=== PATIENT | female | born 1975 | race Two or more races ===

== ENCOUNTER → 2020-09-07 15:43 | Outpatient (BNVA) | payer OTHER, MEDICAID, SELFPAY | PROVIDERS: PCP Internal Medicine; Visit Provider Hospitalist | DX: Z76.89 Persons encountering health services in other specified circumstances (principal) ==

== ENCOUNTER 2021-04-21 10:25 | Outpatient (REF) | payer BC, MEDICAID, SELFPAY ==
[2021-04-21 12:16] LABS: D Dimer 310 NG/ML
[2021-04-21 12:24] LABS: Anion Gap 12 (12-20); Blood Urea Nitrogen 11 mg/dL (9-16); Carbon Dioxide 23 mmol/L (22-29); Chloride 106 mmol/L (96-108); Estimated Glomerular Filt Rate > 60; Glucose Random 88 mg/dL (60-115); Potassium 4.2 mmol/L (3.3-5.1); Sodium 137 mmol/L (135-145)
[2021-04-21 12:47] LABS: Vitamin D 25-OH Total 25.6 ng/mL (>30)
[2021-04-21 12:55] LABS: Erythrocyte Sedimentation Rate 11 MM/HR (0-20)
== END 2021-04-21 10:26 | disposition home or self-care (01) ==
LOC: HO.LAB 10:25
PROVIDERS: PCP Internal Medicine; Visit Provider Hospitalist
DX: I26.99 Other pulmonary embolism without acute cor pulmonale (principal); J45.909 Unspecified asthma, uncomplicated
CPT/HCPCS: 36415; 80048; 82306; 82785; 85379; 85652; 86003

== ENCOUNTER → 2021-06-10 15:04 | Outpatient (BNVA) | payer BC, MEDICAID, SELFPAY | PROVIDERS: PCP Internal Medicine; Visit Provider Hospitalist | DX: J44.9 Chronic obstructive pulmonary disease, unspecified (principal); J45.909 Unspecified asthma, uncomplicated; I26.99 Other pulmonary embolism without acute cor pulmonale ==

== ENCOUNTER → 2021-08-01 14:59 | Outpatient (BNVA) | payer BC, MEDICAID, SELFPAY | PROVIDERS: PCP Internal Medicine; Visit Provider Hospitalist | DX: J44.9 Chronic obstructive pulmonary disease, unspecified (principal); J45.909 Unspecified asthma, uncomplicated; I26.99 Other pulmonary embolism without acute cor pulmonale ==

== ENCOUNTER → 2021-08-30 15:04 | Outpatient (BNVA) | payer BC, MEDICAID, SELFPAY | PROVIDERS: PCP Internal Medicine; Visit Provider Nurse Practitioner Family ==

== ENCOUNTER 2021-10-04 05:44 | Outpatient (REF) | payer BC, MEDICAID, SELFPAY ==
--- NOTE | ~2021-10-04 | FL_ITS ---
EXAMINATION: XR FLUOROSCOPY WITH IMAGES CLINICAL INFORMATION: Pain right knee. COMPARISON: None. TECHNIQUE: Fluoroscopy performed by Cheryl WOODY. Fluoroscopy time: 0.4 minutes DAP: 3.14 Gycm2 Images: 3 FINDINGS: There are needles positioned medial and lateral cortex distal femur and medial proximal tibial cortex for pain management. There is mild reduction in the lateral compartment joint space. The medial compartment joint space is normal. The soft tissues are normal. FL/FL guidance in treatment room IMPRESSION: Mild degenerative changes lateral compartment. Fluoroscopy was provided for pain management to the referring physician.
== END 2021-10-04 05:45 | disposition home or self-care (01) ==
LOC: HO.RADIR 05:44
PROVIDERS: Visit Provider Anesthesiology
DX: M17.11 Unilateral primary osteoarthritis, right knee (principal)

== ENCOUNTER → 2021-10-11 09:37 | Outpatient (BNVA) | payer BC, MEDICAID, SELFPAY | PROVIDERS: PCP Internal Medicine; Visit Provider Nurse Practitioner Family ==

== ENCOUNTER 2022-03-06 10:30 | Outpatient (REF) | payer BC, MEDICAID, SELFPAY ==
[2022-03-06 10:45] LABS: MANUAL DIFF FLAG NO
[2022-03-06 11:23] LABS: Basophils Percent Auto 0.2 % (0-2); Eosinophils Absolute Auto 0.1 X10*3/uL (0.0-0.4); Eosinophils Percent Auto 0.8 % (0-4); Hematocrit 43.8 % (37.0-47.0); Hemoglobin 14.3 g/dl (12.0-16.0); Imm Gran Abs Auto 0.04 X10*3/uL (0.00-0.03); Imm Gran Pct Auto 0.5 % (0.0-0.4); Lymphocytes Absolute Auto 1.4 X10*3/uL (1.2-4.9); Lymphocytes Percent Auto 15.8 % (20-40); Mean Corpuscular HGB Conc 32.6 g/dl (31.0-35.0); Mean Corpuscular Hemoglobin 29.9 pg (27.0-33.0); Mean Corpuscular Volume 91.4 fL (80.0-98.0); Mean Platelet Volume 10.3 fL (9.4-12.3); Monocytes Absolute Auto 0.6 X10*3/uL (0.1-1.2); Monocytes Percent Auto 6.7 % (2-11); Neutrophils Absolute Auto 6.6 x10*3/uL (2.0-8.3); Platelet Count 271 X10*3/uL (160-400); Red Blood Count 4.79 X10*6/uL (4.20-5.50); Red Cell Distribution Width 13.8 % (11.0-16.0); White Blood Count 8.7 X10*3/uL (4.8-10.8)
[2022-03-06 11:51] LABS: Alanine Aminotransferase 12 U/L (0-31); Albumin Level 4.2 g/dL (3.5-5.0); Alkaline Phosphatase 67 U/L (39-117); Anion Gap 14 (12-20); Aspartate Amino Transferase 13 U/L (5-31); Bilirubin Direct 0.4 mg/dL (0.0-0.5); Bilirubin Total 1.4 mg/dL (0.0-1.0); Blood Urea Nitrogen 13 mg/dL (9-16); Calcium 9.3 mg/dL (8.4-10.2); Carbon Dioxide 23 mmol/L (22-29); Chloride 105 mmol/L (96-108); Estimated Glomerular Filt Rate > 60; Glucose Random 95 mg/dL (60-115); Potassium 4.2 mmol/L (3.3-5.1); Sodium 138 mmol/L (135-145); Total Protein 7.3 g/dL (6.5-8.0)
[2022-03-06 12:43] LABS: Erythrocyte Sedimentation Rate 12 MM/HR (0-20)
[2022-03-07 22:12] LABS: Immunoglobulin E 16 kU/L (<OR=114)
[2022-03-12 13:27] LABS: Vitamin D 25-OH, D2 <4 ng/mL; Vitamin D 25-OH, D3 23 ng/mL; Vitamin D 25-OH, Total 23 ng/mL (30-100)
== END 2022-03-06 10:31 | disposition home or self-care (01) ==
LOC: HO.LAB 10:30
PROVIDERS: Visit Provider Hospitalist
DX: I27.82 Chronic pulmonary embolism (principal); J45.40 Moderate persistent asthma, uncomplicated; R60.0 Localized edema
CPT/HCPCS: 36415; 80048; 80076; 82306; 82785; 85025; 85652

== ENCOUNTER 2022-04-26 07:08 | Emergency (ER) | payer BC, MEDICAID, SELFPAY ==
--- NOTE | ~2022-04-26 | XR_ITS ---
EXAMINATION: XR CHEST CLINICAL INFORMATION: Chest tightness COMPARISON: None TECHNIQUE: 2 views of the chest were obtained. FINDINGS: Lungs clear. No pleural effusions. Heart and pulmonary vessels normal. There is dystrophic calcification overlying the superior lateral right humeral head. XR/XR chest 2V IMPRESSION: No active disease.
--- NOTE | 2022-04-26 07:26 | ECG_ITS ---
Test Reason : chest tightness Blood Pressure : / mmHG Vent. Rate : 088 BPM Atrial Rate : 088 BPM P-R Int : 132 ms QRS Dur : 078 ms QT Int : 384 ms P-R-T Axes : 048 -02 011 degrees QTc Int : 464 ms Normal sinus rhythm Minimal voltage criteria for LVH, may be normal variant ( R in aVL ) Borderline ECG No previous ECGs available Referred By: Generic ED Physician Electronically Signed By:GENARO MURRELL MD
[2022-04-26 07:36] VITALS: BP 158/94; PULSE 94; RESP 18; TEMP 37; O2SAT 96; BMI 47.6
[2022-04-26] MEDS: Albuterol/Iprat 2.5/0.5MG 3 ML AMPUL.NEB INHALE (09:46)
[2022-04-26 09:47] VITALS: RESP 18; O2SAT 96
[2022-04-26] MEDS: predniSONE 20 MG TABLET 40 MG PO (10:09)
--- NOTE | 2022-04-26 10:12 | ED_ITS ---
HPI - URI/Sore Throat General Chief Complaint: Upper Respiratory Symptoms Stated Complaint: covid+, tight chest Time Seen by Provider: 04/26/22 09:19 Source: patient Mode of arrival: ambulatory History of Present Illness HPI Narrative: 46-year-old female with a medical history of asthma, osteoarthritis, PE on Eliquis, COVID-19 positive yesterday, presenting to the ED complaining of nonproductive cough, wheezing, and chest tightness since Sunday. Reports symptoms feel like her asthma. Reports low-grade fever, myalgias, chills which have been improving. Has been using neb machine with some relief. Denies fever, SOB, pedal edema, calf pain. Denies missing any doses of her Simran MD elicited complaint: cough and nasal congestion Onset (ago): day(s) Related Data Home Medications Medication Instructions Recorded Confirmed acetaminophen 650 mg 650 mg PO Q12H 08/01/21 10/11/21 tablet,extended release (Tylenol Arthritis Pain) Previous Rx's Medication Instructions Recorded budesonide-formoterol HFA 160 2 inh inhalation BID 30 days #10.2 06/10/21 mcg-4.5 mcg/actuation aerosol grams inhaler cetirizine 10 mg tablet (Zyrtec) 10 mg PO DAILY 30 days #30 tabs 06/10/21 thom.stocking,knee,reg,smal #2 ea 08/01/21 albuterol sulfate 90 mcg/actuation 2 inh inhalation Q6H PRN shortness 03/06/22 aerosol inhaler of breath or wheezing 30 days #18 grams apixaban 5 mg tablet (Eliquis) 5 mg PO BID #120 tabs 04/12/22 albuterol sulfate 2.5 mg/0.5 mL 5 mg inhalation Q4H PRN shortness 04/26/22 solution for nebulization of breath or wheezing #30 ea benzonatate 100 mg capsule 100 mg PO TID PRN cough #14 caps 04/26/22 fluticasone propionate 50 2 spray intranasal DAILY #16 grams 04/26/22 mcg/actuation nasal spray,suspension (Flonase Allergy Relief) prednisone 20 mg tablet 40 mg PO DAILY 5 days #10 tabs 04/26/22 Allergies Allergy/AdvReac Type Severity Reaction Status Date / Time No Known Allergies Allergy Verified 03/06/22 10:09 Review of Systems Review of Systems: Constitutional: No Weight loss, No Fever(resolved), No Chills(resolved) ENT/Mouth: No Ear Pain, No Nasal Congestion, No Sinus Pain, No Hoarseness, No s ore throat, No Rhinorrhea, No Swallowing Difficulty Cardiovascular: + Chest tightness, No SOB Respiratory: + Cough, No Sputum, No Wheezing Gastrointestinal: No Nausea, No Vomiting, No Diarrhea, No Constipation, No Abdominal pain Genitourinary: No Dysuria, No Urinary Frequency, No Hematuria, No Flank Pain Musculoskeletal: No joint pain, No Myalgias(resolved), No Joint Swelling Skin: No Skin Lesions, No rash Neuro: No Weakness Yes all other systems are reviewed and are negative Constitutional: Constitutional: Reports as per [facility] Past Medical History Attestation statement: The following information was validated with the patient. Medical History (Updated 04/26/22 @ 10:13 by ANNALISE Packer) Asthma Knee pain, right Lower extremity edema Osteoarthritis of right knee Pulmonary emboli Social History Social History (Updated 04/21/21 @ 10:35 by SHABBIR Kamara) Patient Tobacco Use Status: Never used Tobacco Advance Directives: No Advance Directives Information Provided: No Physical Exam Vital Signs: Vital Signs: Last Vital Signs Temp 98.6 F 04/26/22 07:36 Pulse 94 04/26/22 07:36 Resp 18 04/26/22 09:47 BP 158/94 H 04/26/22 07:36 Pulse Ox 96 04/26/22 07:36 O2 Del Method 04/26/22 07:36 BMI result Body Mass Index 47.6 Const: General: cooperative, healthy appearing and no acute distress Orientation/consciousness: patient oriented x3 Limitations: no limitations HEENT: Head: Yes normal to inspection and Yes atraumatic Ears: hearing grossly normal bilaterally and external ears normal General nose exam: Normal external nose present Face and sinus: Yes normal facial exam Throat: Yes posterior oropharynx normal, Yes tonsils normal, Yes uvula midline and No pe ritonsillar mass Eyes: General: appearance normal, both eyes and all related structures EOM: EOMs intact bilaterally Neck: Neck: Yes normal visual inspection and Yes no meningeal signs Resp: Effort & Inspection: normal respiratory effort and no respiratory distress Auscultation: no crackles, no rhonchi, no wheezes and diminished lung sounds bilateral (slight) in the lower lung marks Cardio: Rate: regular rate Heart sounds: S1 normal heart sound present and S2 normal heart sound present GI: Inspection: Yes normal to inspection Palpation (GI): Soft to palpation, nontender, no guarding and not rigid Skin: Rashes: no rashes Wounds: no wounds Neuro: General: patient oriented x3, tone normal and no meningeal signs Gait exam (Neuro): Normal gait present Extrem: General: Yes normal to inspection, Yes no pedal edema and Yes no calf tenderness Course Course Course Narrative: XR chest 2V IMPRESSION: No active disease. > patient given DuoNeb and p.o. prednisone in the ED. Reports symptomatic improvement. Results discussed with patient including worrisome signs and symptoms and strict return precautions, and when to return to the emergency department. They verbalized understanding and feel safe for discharge at this time. MDM - URI/Sore Throat MDM Narrative Medical decision making narrative: 46-year-old female with a medical history of asthma, osteoarthritis, PE on Eliquis, COVID-19 positive yesterday, presenting to the ED complaining of nonproductive cough, wheezing, and chest tightness since Sunday. On exam vital signs stable, NAD/nontoxic-appearing, satting 96% on RA, slight decreased breath sounds bibasilarly, no appreciable wheezing. No pedal edema/calf tenderness. Concern for continued COVID-19 symptoms vs superimposed asthma exacerbation. Rule out pneumonia. Lower suspicion for PE as patient is anticoagulated. Unlikely ACS Plan: EKG, CXR, DuoNeb, p.o. prednisone Differential Diagnosis Differential diagnosis: Likely upper respiratory infection, viral infection, bronchitis and influenza Medical Records Attestation: I reviewed the patient's medical records. Lab Data Attestation: I reviewed the patient's lab results. ECG Data Attestation: I personally reviewed and interpreted this ECG as follows: ECG interpretation date: 04/26/22 ECG interpretation time: 07:44 Interpretation: EKG normal sinus rhythm at a rate of 88. QTC 464. No STEMI. Discharge Plan Discharge Clinical Impression: Asthma exacerbation, COVID-19 Patient Disposition: Home, Self-Care Instructions: Asthma (ED) Additional Instructions: Your x-ray does not show any pneumonia. Continue using her nebulizer machine, inhalers, and start taking prednisone as prescribed. Continue to self isolate. Take Tylenol as needed. If symptoms persist or worsen, if constant worsening chest pain or shortness of breath, or fever unresolved with medications return to the emergency department Prescriptions: New benzonatate 100 mg capsule 100 mg PO TID PRN (Reason: cough) Qty: 14 0RF fluticasone propionate [Flonase Allergy Relief] 50 mcg/actuation spray,suspension 2 spray intranasal DAILY Qty: 16 0RF Rx Instructions: administer into each nostril prednisone 20 mg tablet 40 mg PO DAILY 5 Days Qty: 10 0RF albuterol sulfate 2.5 mg/0.5 mL solution for nebulization 5 mg inhalation Q4H PRN (Reason: shortness of breath or wheezing) Qty: 30 0RF No Action albuterol sulfate 90 mcg/actuation HFA aerosol inhaler 2 inh inhalation Q6H PRN (Reason: shortness of breath or wheezing) 30 Days Qty: 18 12RF Eliquis 5 mg tablet 5 mg PO BID Qty: 120 5RF budesonide-formoterol 160-4.5 mcg/actuation HFA aerosol inhaler 2 inh inhalation BID 30 Days Qty: 10.2 11RF cetirizine [Zyrtec] 10 mg tablet 10 mg PO DAILY 30 Days Qty: 30 3RF acetaminophen [Tylenol Arthritis Pain] 650 mg tablet extended release 650 mg PO Q12H (DME) thom.stocking,knee,reg,smal Misc See Rx Instructions .Route Qty: 2 0RF Rx Instructions: 15-20 cm Referrals: Graham Pro MD [Primary Care Provider] - 1 week Interventions: ED Discharge Assessment Last Done: 04/26/22 10:21 Discharge Date/Time: 04/26/22 10:26
== END 2022-04-26 10:26 | disposition home or self-care (01) ==
PROVIDERS: Emergency Provider Emergency Medicine Emergency Medical Services; PCP Internal Medicine
DX: U07.1 COVID-19 (principal); J45.901 Unspecified asthma with (acute) exacerbation; R07.89 Other chest pain; Z79.899 Other long term (current) drug therapy
CPT/HCPCS: 71046; 93005; 94640; 99284

== ENCOUNTER → 2022-05-04 13:55 | Outpatient (BNVA) | payer BC, MEDICAID, SELFPAY | PROVIDERS: PCP Internal Medicine; Visit Provider Dietitian, Registered | DX: E66.9 Obesity, unspecified (principal) | CPT/HCPCS: 97802 ==

== ENCOUNTER → 2022-06-16 09:39 | Outpatient (BNVA) | payer BC, MEDICAID, SELFPAY | PROVIDERS: PCP Internal Medicine; Visit Provider Dietitian, Registered | DX: E66.9 Obesity, unspecified (principal); Z68.42 Body mass index [BMI] 45.0-49.9, adult; Z71.3 Dietary counseling and surveillance | CPT/HCPCS: 97803 ==

== ENCOUNTER → 2022-09-29 13:58 | Outpatient (BNVA) | payer BC, MEDICAID, SELFPAY | PROVIDERS: PCP Internal Medicine; Visit Provider Hospitalist | DX: Z13.89 Encounter for screening for other disorder (principal) ==

== ENCOUNTER 2023-09-28 09:56 | Outpatient (AMB) | payer OTHER, SELFPAY ==
[2023-09-28 10:00] VITALS: PULSE 75; O2SAT 97; BMI 46.5
--- NOTE | 2023-09-28 10:00 | MHC.OFFVIS ---
Intake Vital Signs 09/28/23 10:00 Height 5 ft Weight 238 lb BMI 46.5 Pulse 75 Pulse Source Pulse Oximeter Pulse Oximetry (%) 97 Oxygen Delivery Method Room Air Intake Visit Reasons: asthma Website Developer Required: No Allergies No Known Allergies Allergy (Verified 09/28/23 10:01) HPI HPI Comments History of Present Illness Details The patient is a 48-year-old woman with a known history of moderate persistent asthma, history recurring pulmonary emboli currently on lifelong anticoagulation and also morbid obesity. Her respiratory status has been stable. 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 But, for now she has been doing well from the asthma standpoint. In regards of the history of pulmonary emboli she continues on the Eliquis 5 mg twice a day. She is wondering about 1 is safe to decrease the dose. I do feel she should be at least on a year's worth therapeutic Eliquis prior to deciding to cut down to half dose. She is currently dealing with an issue with her right knee. She has a torn ACL and is awaiting getting a brace for this injury. She continues to try to exercise and she lost approximately around 40 lb as she has continued to exercise and maintain a lifestyle change. In the meantime the patient does have a torn ACL. Because of her history of blood clots the patient cannot have surgery done locally. Once this duration improves with the she should go to [place] to have an evaluation. In the meantime for her anxiety that is ultimately affecting her ability to function and also at worsening respiratory symptoms the patient is requesting to talk to a mental health counselor. I will help her make arrangements for in order for her to do that. 04/21/2021 the patient is here for pulmonary follow-up visit. Overall she still complains of significant right knee discomfort. She does have a brace on. She did have a 2nd opinion in [place] for her right knee arthritis and also her torn ACL. Currently she is on Eliquis for her history of recurrent blood clots. The patient needs to stay on lifelong anticoagulation as she is high risk for further recurrent clots. [place] recommended a IVC filter for the perioperative period. I did explain to her that these IVC filters are removal and she can have 1 done as a prophylactic measure based on her high risk of clotting and the fact that she may need to be off anticoagulation. she will follow-up with the ACL all specialists to see about having surgery for that 1st and then considering having further interventions for her significant arthritis. Her asthma has been more active in the last couple days. She has been using her rescue inhaler or nebulizer. She has also been using the Symbicort twice a day. Will try to optimize her therapy by switching her over to Breztri, in addition to that we had checked her allergies in the past and she did have significant allergies noted. Will recheck her allergy levels at this time. Patient could consider biologic therapy if she has significant symptoms and if she does not respond to the optimize respiratory therapy. based on his significant comorbidities which should avoid systemic steroids at this time. 08/01/2021 the patient is here for a pulmonary follow-up visit. Since we last spoke she was placed on Spiriva. She responded very well to the long-acting muscarinic antagonist. She also continues with her Symbicort. Her wheezing improved dramatically. She did not need any prednisone. The patient continues to have significant knee pain. She still awaiting to have a pain specialist take care of her pain so she can start physical therapy and start strengthening her knee. She still looking to undergo surgery. She does not know the details at this point. The patient also has lower extremity edema. I will make sure she has a compression stockings to minimize edema of her lower extremities. 03/06/2022 the patient is here for a pulmonary follow-up visit. From an asthma standpoint the patient has been having worsening respiratory symptoms now will during the spring season. She has had to use her rescue inhaler more regularly. She has not been using the Spiriva which is okay. She still continues on the Symbicort. She also uses her allergy medicine. She continues on the Eliquis that she is tolerating well. Recently she did have ortho scopic evaluation of her knee demonstrating significant arthritis in addition to meniscus injuries an ACL tendon injury. The patient was able to get a cleaning of her joint to some degree. But, she the patient requires a total knee replacement. This is scheduled most likely from the fall. Meantime the patient needs to lose weight. She will be referred to a dietitian. I also gave her some advice as far as knee replacement. She has tried medical weight management, but, did not tolerate the medications. No difficulties with the Eliquis. She has not had any evidence of bleeding. And postoperatively the patient did well without any evidence of signs of thrombosis. 09/29/2022 the patient has a telehealth visit today. She was having worsening respiratory symptoms the last couple days. She also complains of sinus congestion. She tested negative for COVID-19. She has had some chills in addition to a sore throat. Likely has a viral syndrome. Seems to be working down in usually activates her asthma. She has not been using her Symbicort as regularly. She has been complaining of some chest tightness. Npoe-ur-phsbehae severity. Seems to improve using her inhaler. She also has a nebulizer that she can use. Based on his symptoms indeed she may have the flu. Although the only way of knowing for sure is that she will need to have a flu swab. 09/28/2023 the patient is here for a pulmonary follow-up visit. The patient overall is doing about the same from the orthopedic issue. Still having significant right knee pain. She did have arthroscopic surgery, but, ultimately needs a repeat total knee replacement. She is following closely with orthopedic surgery. Because of her significant disability she has been able to go back to work. At this point the patient is significantly overweight she is already losing weight and she is part of a bariatric program. She is trying to undergo a gastric sleeve in the coming months. From a respiratory status the patient does have a history of asthma. She has been stable on the current therapy. She has not had any recent flare-ups. She does have Symbicort as a maintenance inhaler. The patient did undergo spirometry dating her spirometry numbers are perfectly normal which is reassuring. In addition to that she has had history of recurrent blood clots. The patient has been on long-term anticoagulation with Eliquis which she tolerated well. Prior to that she was on Coumadin but had issues with hair loss and she was not happy with that. The Eliquis has been working very well. Now going to surgery the patient will have to stop the Eliquis per the surgeon's protocol but we have to restart anticoagulation or antithrombotic therapy quickly after surgery to minimize the risk of recurrent clotting the patient indeed is high risk for recurrent blood clots. Clinically the patient is doing very good and she is able to consent for surgery and also anesthesia at this time. [facility] Medical History (Updated 09/28/23 @ 12:31 by Sen Betancur MD) Osteoarthritis of right knee Knee pain, right Lower extremity edema Pulmonary emboli Asthma Social History (Updated 04/21/21 @ 10:35 by Radha Marrero Sally) Patient Tobacco Use Status: Never used Tobacco Review of Systems Const Denies chills, Denies night sweats and Reports weight loss ENT Denies change in voice, Denies lip swelling, Denies mouth pain, Reports nasal congestion, Reports nasal discharge and Denies tongue swelling Card Denies chest pain Resp Reports cough and Denies wheezing GI Denies abdominal pain Musc Reports as per HPI, Reports arthralgias, Reports joint swelling, Reports limited range of motion, Reports muscle weakness and Reports stiffness Skin/Breast Denies rash Neuro Denies Neuro-related abnormal movements Psych Denies no additional complaints Minh/Lymph Denies easy bleeding and Denies lymphadenopathy Aller/Immun Denies lip swelling, Denies tongue swelling and Denies wheezing Physical Exam Vital Signs: Last Vital Signs Pulse 75 09/28/23 10:00 Pulse Ox 97 09/28/23 10:00 Oxygen Delivery Method Room Air 09/28/23 10:00 BMI result Body Mass Index 46.5 Immunizations pneumoc 20-marshal conj-dip cr(PF) 0.5 mL IM syringe Performing Provider: Sen Betancur MD Performing Location: [facility] Administered by: Marisa Orr LPN on 09/28/23 10:40 Dose Route Admin Location Dispensed Lot Number Expiration Date NDC Ice Crusher 0.5 mL IM Left Deltoid 0.5 mL [id number] 04/23/24 5116-1336-55 [employer] VIS Given Date VIS Provided VIS Publication Date 09/28/23 Single Vaccine 23 Eligibility Eligibility Date Funding Source Not [facility] Eligible 09/28/23 Private Results Reviewed Results Reviewed: Assessment & Plan Assessment & Plan (1) Pre-op chest exam: Code(s): Z01.811 - Encounter for preprocedural respiratory examination (2) Asthma: Code(s): J45.909 - Unspecified asthma, uncomplicated Qualifiers: Asthma severity: moderate Asthma persistence: persistent Asthma complication type: uncomplicated Qualified Code(s): J45.40 - Moderate persistent asthma, uncomplicated (3) Pulmonary emboli: Code(s): I26.99 - Other pulmonary embolism without acute cor pulmonale Qualifiers: Pulmonary embolism type: unspecified Chronicity: chronic Acute cor pulmonale presence: without acute cor pulmonale Qualified Code(s): I27.82 - Chronic pulmonary embolism (4) Knee pain, right: Code(s): M25.561 - Pain in right knee Qualifiers: Chronicity: chronic Qualified Code(s): M25.561 - Pain in right knee; G89.29 - Other chronic pain Plan The patient is participating in the bariatric program and is looking to have a gastric sleeve surgery. The patient is medically optimized from a pulmonary standpoint and stable to proceed forward with anesthesia and also surgery. The patient does have moderate risk for perioperative pulmonary complications which includes bronchospasms, atelectasis, hypoxia and pneumonia. The patient does also require Eliquis for recurrent blood clots and has had blood clots after surgery in the past. Therefore, she should stop the Eliquis 2-3 days prior to surgery and should be started back on anticoagulation or antithrombotics therapy with Lovenox therapeutic as quickly as possible and safely as possible after surgery. continue Daliresp continue Symbicort Short-acting beta agonist as needed continue Eliquis twice a day continue Zyrtec as needed Compression stockings Follow-up in 4 months Orders: Orders Pneumococcal 20 Immunization Today J45.909 - Unspecified asthma, uncomplicated Medications: Discontinued benzonatate Discontinued Reason: Patient Completed Course 100 mg PO TID PRN 14 caps 0RF cough prednisone Discontinued Reason: Patient Completed Course 40 mg (2 x 20 mg) PO DAILY 5 days 10 tabs 0RF prednisone Discontinued Reason: Patient Completed Course PO daily; Take 3 tabs x 3 days, then 2 tabs daily x 3 days, then 1 tab x 3 days to complete. 9 days 18 tabs 0RF azithromycin Discontinued Reason: Patient no longer taking 500 mg PO DAILY 5 days 5 tabs 0RF prednisone Discontinued Reason: Patient Completed Course PO daily; Take 2 tabs daily x 5 days, then 1 tablet daily x 5 days 10 days 15 tabs 0RF Coding Level of Care Code Est Pt Level 4 (24153) Diagnoses Pre-op chest exam Z01.811 Moderate persistent asthma without complication J45.40 Asthma severity: moderate Asthma persistence: persistent Asthma complication type: uncomplicated Chronic pulmonary embolism without acute cor pulmonale, unspecified pulmonary embolism type I27.82 Pulmonary embolism type: unspecified Chronicity: chronic Acute cor pulmonale presence: without acute cor pulmonale Chronic pain of right knee M25.561; G89.29 Chronicity: chronic Time Spent (min) 20
== END 2023-09-28 10:41 | disposition home or self-care (01) ==
PROVIDERS: PCP Internal Medicine; Visit Provider Hospitalist
DX: Z01.811 Encounter for preprocedural respiratory examination (principal); J45.40 Moderate persistent asthma, uncomplicated; I27.82 Chronic pulmonary embolism; M25.561 Pain in right knee; G89.29 Other chronic pain; J45.909 Unspecified asthma, uncomplicated
CPT/HCPCS: 94010; 99214

== ENCOUNTER → 2023-09-28 09:56 | Outpatient (BNVA) | payer OTHER, SELFPAY | PROVIDERS: PCP Internal Medicine; Visit Provider Hospitalist | DX: Z23 Encounter for immunization (principal); Z01.811 Encounter for preprocedural respiratory examination; J45.40 Moderate persistent asthma, uncomplicated; I27.82 Chronic pulmonary embolism; M25.561 Pain in right knee; G89.29 Other chronic pain | CPT/HCPCS: 90471; 90677; 94010; 99212 ==

== ENCOUNTER 2023-10-01 10:27 | Emergency (ER) | payer OTHER, SELFPAY ==
[2023-10-01 10:51] VITALS: BP 179/111; PULSE 117; RESP 18; TEMP 37.2; O2SAT 94; BMI 46.6
[2023-10-01 11:59] LABS: Anion Gap 14 (12-20); Blood Urea Nitrogen 16 mg/dL (9-16); Carbon Dioxide 25 mmol/L (22-29); Chloride 104 mmol/L (96-108); Creatinine Clr Calc Pharmacy 107.1; Estimated Glomerular Filt Rate > 60; Glucose Random 117 mg/dL (60-115); Sodium 139 mmol/L (135-145)
--- NOTE | 2023-10-01 12:35 | ED_ITS ---
HPI - General Adult General Chief complaint: Extremity Problem Stated complaint: R shoulder pain rad down arm Time Seen by Provider: 10/01/23 12:20 Source: patient, RN notes reviewed and old records reviewed Mode of arrival: ambulatory History of Present Illness HPI narrative: 48-year-old female with a past medical history of osteoarthritis, PE on Eliquis, asthma, presenting to the ED complaining of right shoulder pain x3 days worse with movement. Admits at baseline ambulates with cane on right side and has been doing increased movements the past few days, denies known injury/trauma or fall. Reports pain radiates down RUE. Denies headache, neck pain, numbness/tingling, weakness, CP/SOB Related Data Home Medications Medication Instructions Recorded Confirmed acetaminophen 650 mg 650 mg PO Q12H 08/01/21 10/11/21 tablet,extended release (Tylenol Arthritis Pain) nebulizers 09/28/23 Previous Rx's Medication Instructions Recorded budesonide-formoterol HFA 160 2 inh inhalation BID 30 days #10.2 06/10/21 mcg-4.5 mcg/actuation aerosol grams inhaler cetirizine 10 mg tablet (Zyrtec) 10 mg PO DAILY 30 days #30 tabs 06/10/21 thom.stocking,knee,reg,smal #2 ea 08/01/21 albuterol sulfate 90 mcg/actuation 2 inh inhalation Q6H PRN shortness 03/06/22 aerosol inhaler of breath or wheezing 30 days #18 grams albuterol sulfate 2.5 mg/0.5 mL 5 mg inhalation Q4H PRN shortness 04/26/22 solution for nebulization of breath or wheezing #30 ea fluticasone propionate 50 2 spray intranasal DAILY #16 grams 04/26/22 mcg/actuation nasal spray,suspension (Flonase Allergy Relief) albuterol sulfate 2.5 mg/3 mL 2.5 mg (3 mL) inhalation Q4-6H PRN 05/03/22 (0.083 %) solution for nebulization shortness of breath or wheezing #180 mL roflumilast 500 mcg tablet 500 mcg PO DAILY 30 days #30 tabs 09/29/22 (Daliresp) apixaban 5 mg tablet (Eliquis) 5 mg PO BID #120 tabs 07/18/23 cyclobenzaprine 5 mg tablet 5 mg PO Q8H PRN pain (scale score 10/01/23 7-10) 5 days #14 tabs lidocaine 5 % topical patch 1 patch topical DAILY PRN pain #30 10/01/23 (Lidoderm) ea Allergies Allergy/AdvReac Type Severity Reaction Status Date / Time No Known Allergies Allergy Verified 09/28/23 10:01 Review of Systems 2 Review of Systems: Constitutional: No Fever, No Chills ENT/Mouth: No Ear Pain, No Nasal Congestion, No sore throat, No Rhinorrhea Cardiovascular: No Chest Pain, No SOB Respiratory: No Cough Gastrointestinal: No Nausea, No Vomiting, No Diarrhea, No Constipation, No Abdominal pain Genitourinary: No Dysuria, No Hematuria, No Urinary Incontinence/retention Musculoskeletal: +joint pain, No Myalgias, No Joint Swelling Skin: No Skin Lesions, No rash Neuro: No Weakness, No Numbness, No Paresthesias Yes all other systems are reviewed and are negative Constitutional: Constitutional: Reports as per [facility] Past Medical History Attestation statement: The following information was validated with the patient. Source: old records reviewed Onset Date is defined in the Problem List Problems that require an onset date and time if occurred within 24 hrs of arrival to the ED Aortic Dissection and Rupture; Neurologic impairment; Cardiopulmonary Arrest; Endotracheal Intubation; Insertion or Replacement of Mechanical Circulatory Assist Device Medical History Osteoarthritis of right knee Knee pain, right Lower extremity edema Pulmonary emboli Asthma Social History Social History Patient Tobacco Use Status: Never used Tobacco Advance Directives: No Physical Exam ED Vital Signs: Vital Signs - 24 hr 10/01/23 10:51 Temperature 99.0 F Pulse Rate 117 H Respiratory Rate 18 Blood Pressure 179/111 H Pulse Oximetry 94 Oxygen Delivery Method Room Air BMI result Body Mass Index 46.6 Const General: cooperative, healthy appearing and no acute distress Orientation/consciousness: patient oriented x3 Limitations: no limitations HENMT Head: Yes normal to inspection and Yes atraumatic Ears: hearing grossly normal bilaterally General nose exam: Normal external nose present Face and sinus: Yes normal facial exam Eyes General: appearance normal, both eyes and all related structures EOM: EOMs intact bilaterally Neck Neck: Yes normal visual inspection and Yes no meningeal signs Resp Effort & Inspection: normal respiratory effort and no respiratory distress Cardio Rate: regular rate Peripheral pulses: Peripheral pulses 2+ throughout GI Inspection: Yes normal to inspection Palpation (GI): Soft to palpation, nontender, no guarding and not rigid Back/Spine/Pelvis Other: No midline cervical/thoracic/lumbar spinous tenderness/step-off or deformity Skin Rashes: no rashes Wounds: no wounds Neuro General: patient oriented x3, tone normal and no meningeal signs Cranial nerves: Yes CN's II-XII intact bilaterally Gait exam (Neuro): Normal gait present Extrem Other: +R shoulder w/o noted deformity. +ttp to AC & deltoid, decreased ROM due to pain. NV intact distally. General: Yes normal to inspection Course Course Course Narrative: -1236--mild leukocytosis 13.1. Labs otherwise reassuring. Troponin negative XR shoulder RT min 2V IMPRESSION: Mild acromioclavicular osteoarthritis. No acute fractures or malalignment. -vital signs improved on repeat without intervention. Patient admits she has follow-up with Orthopedics on Results discussed with patient including worrisome signs and symptoms and strict return precautions, and when to return to the emergency department. They verbalized understanding and feel safe for discharge at this time. Medications Administered Discontinued Medications Generic Name Dose Route Start Last Admin Trade Name Freq PRN Reason Stop Dose Admin Cyclobenzaprine HCl 5 mg 10/01/23 12:44 10/01/23 12:57 Cyclobenzaprine Hcl 5 Mg Tablet PO 10/01/23 12:45 5 mg ONCE ONE Administration Medical Decision Making Medical Decision Making [facility] Narrative: 48-year-old female with a past medical history of osteoarthritis, PE on Eliquis, asthma, presenting to the ED complaining of right shoulder pain x3 days worse with movement. On exam hypertensive and tachycardic (reports history of white coat syndrome), physical exam as noted above. Concern for osteoarthritis vs MSK pain/strain vs bursitis or rotator cuff injury. Low suspicion for fracture. No evidence of septic joint/arthritis. Lower suspicion for ACS/PE. Low suspicion for hypertensive urgency/emergency Plan: EKG, labs, x-ray ordered in triage Please refer to course for remaining clinical decision making, interpretation of labs/imaging results, and discussions with consultants and/or family members. Differential Diagnosis Differential Diagnoses: The differential diagnosis associated with the presentation includes As above Admission/Observation Consideration of admission/observation: Escalation of care including admission/observation considered Lab Data MDM Lab Attestation statement: I reviewed the patient's lab results. 10/01/23 11:41 10/01/23 11:41 Labs: Lab Results 10/01/23 Range/Units 11:41 WBC 13.1 H (4.8-10.8) X10*3/uL RBC 5.22 (4.20-5.50) X10*6/uL Hgb 15.5 (12.0-16.0) g/dl Hct 47.2 H (37.0-47.0) % MCV 90.4 (80.0-98.0) fL MCH 29.7 (27.0-33.0) pg MCHC 32.8 (31.0-35.0) g/dl RDW 14.1 (11.0-16.0) % Plt Count 266 (160-400) X10*3/uL MPV 9.7 (9.4-12.3) fL Immature Gran % (Auto) 0.5 H (0.0-0.4) % Neut % (Auto) 84.4 H (45-73) % Lymph % (Auto) 8.1 L (20-40) % [place] % (Auto) 6.5 (2-11) % Eos % (Auto) 0.3 (0-4) % Baso % (Auto) 0.2 (0-2) % Lymph # (Auto) 1.1 L (1.2-4.9) X10*3/uL [place] # (Auto) 0.9 (0.1-1.2) X10*3/uL Eos # (Auto) 0.0 (0.0-0.4) X10*3/uL Baso # (Auto) 0.0 (0.0-0.2) X10*3/uL Abs Immat Gran (auto) 0.06 H (0.00-0.03) X10*3/uL Absolute Neuts (auto) 11.1 H (2.0-8.3) x10*3/uL Absolute Nucleated RBC 0.000 (0.0-0.012) X10*3/uL Nucleated RBC % (auto) 0.0 (0.0-0.2) /100WBC Sodium 139 (135-145) mmol/L Potassium 4.0 (3.3-5.1) mmol/L Chloride 104 (96-108) mmol/L Carbon Dioxide 25 (22-29) mmol/L Anion Gap 14 (12-20) BUN 16 (9-16) mg/dL Creatinine 0.70 (0.5-1.4) mg/dL Estim Creat Clear Calc 107.1 Estimated GFR > 60 Random Glucose 117 H (60-115) mg/dL Calcium 10.0 D (8.4-10.2) mg/dL Troponin I High Sens < 2.7 (<3.5-17.0) ng/L Independent Interpretation I performed an independent interpretation of an: EKG (My interpretation EKG sinus tachycardia rate of 106. QRS duration 72. QTC 443. No significant change when compared to prior. No STEMI ) and Plain X-Ray Radiology Impression Discussion of test interpretation with radiology: I have reviewed the radiologist's reading. External Record Review External record reviewed: Inpatient record, Office record, Outpatient record, Prior outpatient labs, Prior outpatient radiology, Primary care record and Outside ED record Tests considered The following testing was considered but not selected: As above Prescription Management I considered prescription management with: Pain Medication Chronic Conditions Patient?s care impacted by: Other Discharge Plan Discharge Clinical Impression: Osteoarthritis of shoulder Patient Disposition: Home, Self-Care Instructions: Arthritis (ED) Prescriptions: New lidocaine [Lidoderm] 5 % adhesive patch,medicated 1 patch topical DAILY MDD remove after 12 hours PRN (Reason: pain) Qty: 30 0RF Rx Instructions: leave on most painful area for up to 12 hrs cyclobenzaprine 5 mg tablet 5 mg PO Q8H PRN (Reason: pain (scale score 7-10)) 5 Days Qty: 14 0RF No Action albuterol sulfate 90 mcg/actuation HFA aerosol inhaler 2 inh inhalation Q6H PRN (Reason: shortness of breath or wheezing) 30 Days Qty: 18 12RF albuterol sulfate 2.5 mg /3 mL (0.083 %) solution for nebulization 2.5 mg inhalation Q4-6H PRN (Reason: shortness of breath or wheezing) Qty: 180 0RF Eliquis 5 mg tablet 5 mg PO BID Qty: 120 5RF fluticasone propionate [Flonase Allergy Relief] 50 mcg/actuation spray,suspension 2 spray intranasal DAILY Qty: 16 0RF Rx Instructions: administer into each nostril albuterol sulfate 2.5 mg/0.5 mL solution for nebulization 5 mg inhalation Q4H PRN (Reason: shortness of breath or wheezing) Qty: 30 0RF budesonide-formoterol 160-4.5 mcg/actuation HFA aerosol inhaler 2 inh inhalation BID 30 Days Qty: 10.2 11RF cetirizine [Zyrtec] 10 mg tablet 10 mg PO DAILY 30 Days Qty: 30 3RF acetaminophen [Tylenol Arthritis Pain] 650 mg tablet extended release 650 mg PO Q12H (DME) thom.stocking,knee,reg,smal Misc See Rx Instructions .Route Qty: 2 0RF Rx Instructions: 15-20 cm roflumilast [Daliresp] 500 mcg tablet 500 mcg PO DAILY 30 Days Qty: 30 6RF (DME) nebulizers Misc See Rx Instructions .ROUTE Rx Instructions: As directed Referrals: [facility] [place] Orthopedic Surgeons [Provider Group] Marjan Caicedo MD [Primary Care Provider] -
[2023-10-01 13:00] VITALS: BP 150/87; PULSE 97; RESP 15; TEMP 36.8; O2SAT 95
== END 2023-10-01 13:14 | disposition home or self-care (01) ==
PROVIDERS: Emergency Provider Emergency Medicine; PCP Internal Medicine
DX: M19.011 Primary osteoarthritis, right shoulder (principal); M25.511 Pain in right shoulder; R00.0 Tachycardia, unspecified; Z79.01 Long term (current) use of anticoagulants; Z79.899 Other long term (current) drug therapy; Z20.822 Contact with and (suspected) exposure to COVID-19; Z20.828 Contact with and (suspected) exposure to other viral communicable diseases
CPT/HCPCS: 0241U; 36415; 73030; 80048; 84484; 85025; 93005; 99283; 99284

== ENCOUNTER → 2023-10-01 10:34 | Outpatient (BNV) | payer OTHER, SELFPAY | PROVIDERS: PCP Internal Medicine; Visit Provider Internal Medicine Cardiovascular Disease | DX: R00.0 Tachycardia, unspecified (principal) | CPT/HCPCS: 93010 ==

== ENCOUNTER 2023-11-13 16:20 | Outpatient (AMB) | payer OTHER, SELFPAY ==
[2023-11-13 16:28] VITALS: BP 184/104; BMI 46.9
--- NOTE | 2023-11-13 16:28 | MHC.PC.OV ---
Vital Signs 11/13/23 16:28 11/13/23 17:10 Height 5 ft Weight 240 lb BMI 46.9 BP 184/104 H 180/90 H Blood Pressure Location Lt brachial Lt brachial Position Sitting Sitting Intake Visit Reasons: Knee Osteoarthritis Intake Note: Patient here for a follow up knee osteoarthritis Community Health Promoter Required: No Accompanied by: Self / Same As Patient Allergies No Known Allergies Allergy (Verified 11/13/23 16:46) Medication List - Last Reconciled 11/13/23 by Marjan Joy MD acetaminophen ER (Tylenol Arthritis Pain) 650 mg PO Q12H albuterol sulfate 2.5 mg (3 mL) inhalation Q4-6H PRN albuterol sulfate 90 mcg/actuation 2 inhalations inhalation Q6H PRN 30 days apixaban (Eliquis) 5 mg PO BID budesonide-formoterol 160-4.5 mcg/actuation 2 inhalations inhalation BID 30 days thom.stocking,knee,reg,smal 15-20 cm nebulizers As directed Tobacco use date assessed: 11/13/23 Dental Screening Dental Screen Date: 11/13/23 Did you have a dental visit in the last 12 months?: Yes Did you have a dental problem in the last 6 months where you did not have access to dental care?: No Was dental information given to patient?: Patient has dentist HPI HPI Comments History of Present Illness Details This is a 48-year-old female with pulmonary embolism, right knee osteoarthritis, morbid obesity and asthma that comes today to establish care. She is on chronic anticoagulation for pulmonary embolism that has happened twice. First episode happened while she was on oral contraceptives. The 2nd episode happened 3 months after her hysterectomy. Her hysterectomy was for benign reasons. Denies any active bleeding. Walks with a cane for gait stability due to her right knee pain secondary to osteoarthritis. She needs a knee replacement following with [facility]. She is morbidly obese with a BMI of 46.9 and is enroll in [facility] weight management in which bariatric surgery is pending. She has asthma follow by pulmonology and use rescue inhaler as needed which is once a month or less. Blood pressure was elevated today and will be recheck in 3 weeks by nurse navigator. She takes her blood pressure at home and usually is 130/80 or less. [facility] Medical History (Updated 11/13/23 @ 16:49 by Marjan Joy MD) Osteoarthritis of right knee Knee pain, right Lower extremity edema Pulmonary emboli Asthma Surgical History History of cholecystectomy History of lateral meniscus repair of right knee History of hysterectomy Family History Mother No problems noted. Father Prostate cancer Social History Housing: House Patient Tobacco Use Status: Never used Tobacco e-Cigarette/Vaping Use: Never Used Second Hand Smoke Exposure: No service: No Current occupational status: disabled Cognitive needs: Yes Hearing needs: No Vision needs: Yes Questionnaire PHQ-9 Over the last 2 weeks, how often have you been bothered by any of the following problems? 1. Little interest or pleasure in doing things: not at all 2. Feeling down, depressed, or hopeless: not at all 3. Trouble falling or staying asleep, or sleeping too much: not at all 4. Feeling tired or having little energy: not at all 5. Poor appetite or overeating: not at all 6. Feeling bad about yourself - or that you are a failure or have let yourself or your family down: not at all 7. Trouble concentrating on things, such as reading the newspaper or watching television: not at all 8. Moving or speaking so slowly that other people could have noticed. Or the opposite - being so fidgety or restless that you have been moving around a lot more than usual: not at all 9. Thoughts that you would be better off or of hurting yourself in some way: not at all Total score: 0 Depression Screening Interpretation: Negative Depression Screening Done: Yes 60318 - PHQ-9 Billing: Yes Source: Developed by Drs. Ron Michel, Kimberly Arcos, Pedro Sigala and colleagues, with an educational chiquis from [employer]. Thrive Questionnaire Date Thrive assessed: 11/13/23 I am a: Patient What is your living situation today?: I have a steady place to live Within the past 12 months, did the food you bought not last and you didn't have the money to get more?: Never true Within the past 12 months, did you worry whether your food would run out before you got money to buy more?: Never true Do you have trouble paying for medicines?: No Do you have trouble getting transportation to medical appointments?: No Do you have trouble paying your heating and electricity bill?: No Do you have trouble taking care of your child, family member or friend?: No Do you have trouble with day-to-day activities such as bathing, preparing meals, shopping, managing finances, etc.?: No Are you currently unemployed and looking for a job?: No Are you interested in more education?: No Please select the resources that you would like help with: None Currently or been in a relationship where the following occur: no concerns reported THRIVE Score: 0 AUDIT C Alcohol Use Questionnaire (AUDIT-C) 1. How often do you have a drink containing alcohol?: Never Total Score: 0 BISI-7 AMB Questionnaire BISI-7 Date BISI - 7 assessed: 11/13/23 Feeling nervous, anxious, or on edge: 0 = Not at all Not being able to stop or control worryin = Not at all Worrying too much about different things: 0 = Not at all Trouble relaxin = Not at all Being so restless that it is hard to sit still: 0 = Not at all Becoming easily annoyed or irritable: 0 = Not at all Feeling afraid as if something awful might happen: 0 = Not at all Total BISI-7 score (0-4 normal; 5-9 mild; 10-14 moderate; 15-21 severe): 0 Source: Developed by Drs. Ron Michel, Kimberly Arcos, Pedro Sigala and colleagues, with an educational chiquis from [employer]. BISI-7 Assessment Billing BISI-7 Assessment Tool: BISI-7 Assessment 26435 Review of Systems Const All systems reviewed & are unremarkable except as noted in HPI and below Eyes Reports no additional complaints, Denies change in vision and Denies other visual disturbances Card Denies chest pain at rest, Denies chest pain with activity, Denies edema, Denies irregular heart rhythm, Denies claudication, Denies dyspnea, Denies dyspnea on exertion, Denies orthopnea, Denies paroxysmal nocturnal dyspnea and Denies slow heart rate Resp Denies cough, Denies dyspnea and Denies dyspnea on exertion GI Denies abdominal pain, Denies change in bowel habits, Denies excessive flatus, Denies nausea and Denies vomiting Denies urinary incontinence, Denies urinary hesitancy and Denies urinary urgency Musc Denies abnormal gait, Denies atrophy, Denies deformity, Reports arthralgias and Denies limited range of motion Skin/Breast Denies bleeding lesions, Denies changing lesions and Denies rash Neuro Denies abnormal gait, Denies behavioral changes and Denies lack of coordination Psych Denies behavioral changes Physical exam (Primary Care) Vital Signs: Last Vital Signs BP 184/104 H 11/13/23 16:28 BMI result Body Mass Index 46.9 Tobacco/Smoking Status: Tobacco use Status Tobacco use date assessed 11/13/23 11/13/23 16:40 Patient Tobacco Use Status Never used Tobacco 11/13/23 16:30 e-Cigarette/Vaping Use Never Used 11/13/23 16:40 PHQ-9: PHQ-9 Score PHQ-9: Total score 0 11/13/23 16:40 Depression Screening Interpretation: Negative Thrive Assessment: Date of Thrive Assessment Date Thrive assessed 11/13/23 11/13/23 16:40 Currently or been in a relationship where the following occur: no concerns reported Const Limitations: ambulation with cane Eyes General: appearance normal, both eyes and all related structures Eyelids: Yes eyelids normal Conjunctivae: conjunctivae normal Neck Neck: Yes normal visual inspection and Yes supple Resp Effort & Inspection: normal respiratory effort Auscultation: clear to auscultation bilaterally Cardio Jugular venous distension: no JVD Rate: regular rate Rhythm: regular rhythm Heart sounds: S1 normal heart sound present and S2 normal heart sound present Assessment and Plan Assessment & Plan (1) Pulmonary emboli: Code(s): I26.99 - Other pulmonary embolism without acute cor pulmonale Qualifiers: Pulmonary embolism type: unspecified Chronicity: chronic Acute cor pulmonale presence: without acute cor pulmonale Qualified Code(s): I27.82 - Chronic pulmonary embolism Plan: Continue Eliquis. (2) Osteoarthritis of right knee: Code(s): M17.11 - Unilateral primary osteoarthritis, right knee Plan: Continue acetaminophen as needed. (3) Morbid obesity: Code(s): E66.01 - Morbid (severe) obesity due to excess calories Plan: Follow-up with [facility] weight management. BMI goal is less than 30. (4) Asthma: Code(s): J45.909 - Unspecified asthma, uncomplicated Qualifiers: Asthma severity: moderate Asthma persistence: persistent Asthma complication type: uncomplicated Qualified Code(s): J45.40 - Moderate persistent asthma, uncomplicated Plan: Continue long-acting inhaler. Use rescue inhaler as needed. Follow-up with pulmonology. Orders: Orders Thyroid Stimulating Hormone Today E66.01 - Morbid (severe) obesity due to excess calories Complete Blood Count Auto Diff Today D64.9 - Anemia, unspecified, E66.01 - Morbid (severe) obesity due to excess calories Lipid Panel Today E66.01 - Morbid (severe) obesity due to excess calories Comprehensive [place]. Panel Fast Today E66.01 - Morbid (severe) obesity due to excess calories Coding Level of Care Code Est Pt Level 4 (20328) Diagnoses Chronic pulmonary embolism without acute cor pulmonale, unspecified pulmonary embolism type I27.82 Pulmonary embolism type: unspecified Chronicity: chronic Acute cor pulmonale presence: without acute cor pulmonale Osteoarthritis of right knee M17.11 Morbid obesity E66.01 Moderate persistent asthma without complication J45.40 Asthma severity: moderate Asthma persistence: persistent Asthma complication type: uncomplicated Additional Codes BISI-7 Assessment Billing - BISI-7 Assessment Tool: BISI-7 Assessment 03699 ([id number]) Time Spent (min) 24
[2023-11-13 17:10] VITALS: BP 180/90
== END 2023-11-13 17:08 | disposition home or self-care (01) ==
PROVIDERS: PCP Internal Medicine; Visit Provider Internal Medicine
DX: I27.82 Chronic pulmonary embolism (principal); E66.01 Morbid (severe) obesity due to excess calories; Z68.42 Body mass index [BMI] 45.0-49.9, adult; M17.11 Unilateral primary osteoarthritis, right knee; J45.40 Moderate persistent asthma, uncomplicated
CPT/HCPCS: 99214

== ENCOUNTER 2024-04-15 14:03 | Outpatient (AMB) | payer OTHER, SELFPAY ==
[2024-04-15 14:09] VITALS: PULSE 76; O2SAT 99; BMI 43.7
--- NOTE | 2024-04-15 14:09 | A.OFFVIS_ITS ---
Vital Signs 04/15/24 14:09 Height 4 ft 10 in Weight 209 lb BMI 43.7 Pulse 76 Pulse Source Pulse Oximeter Pulse Oximetry (%) 99 Oxygen Delivery Method Room Air Intake Visit Reasons: Asthma College Advisor Required: No Allergies No Known Allergies Allergy (Verified 04/15/24 14:10) HPI Comments Details: The patient is a 48-year-old woman with a known history of moderate persistent asthma, history recurring pulmonary emboli currently on lifelong anticoagulation and also morbid obesity. Her respiratory status has been stable. 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 But, for now she has been doing well from the asthma standpoint. In regards of the history of pulmonary emboli she continues on the Eliquis 5 mg twice a day. She is wondering about 1 is safe to decrease the dose. I do feel she should be at least on a year's worth therapeutic Eliquis prior to deciding to cut down to half dose. She is currently dealing with an issue with her right knee. She has a torn ACL and is awaiting getting a brace for this injury. She continues to try to exercise and she lost approximately around 40 lb as she has continued to exercise and maintain a lifestyle change. In the meantime the patient does have a torn ACL. Because of her history of blood clots the patient cannot have surgery done locally. Once this duration improves with the she should go to [place] to have an evaluation. In the meantime for her anxiety that is ultimately affecting her ability to function and also at worsening respiratory symptoms the patient is requesting to talk to a mental health counselor. I will help her make arrangements for in order for her to do that. 04/21/2021 the patient is here for pulmonary follow-up visit. Overall she still complains of significant right knee discomfort. She does have a brace on. She did have a 2nd opinion in [place] for her right knee arthritis and also her torn ACL. Currently she is on Eliquis for her history of recurrent blood clots. The patient needs to stay on lifelong anticoagulation as she is high risk for further recurrent clots. [place] recommended a IVC filter for the perioperative period. I did explain to her that these IVC filters are removal and she can have 1 done as a prophylactic measure based on her high risk of clotting and the fact that she may need to be off anticoagulation. she will follow-up with the ACL all specialists to see about having surgery for that 1st and then considering having further interventions for her significant arthritis. Her asthma has been more active in the last couple days. She has been using her rescue inhaler or nebulizer. She has also been using the Symbicort twice a day. Will try to optimize her therapy by switching her over to Breztri, in addition to that we had checked her allergies in the past and she did have significant allergies noted. Will recheck her allergy levels at this time. Patient could consider biologic therapy if she has significant symptoms and if she does not respond to the optimize respiratory therapy. based on his significant comorbidities which should avoid systemic steroids at this time. 08/01/2021 the patient is here for a pulmonary follow-up visit. Since we last spoke she was placed on Spiriva. She responded very well to the long- acting muscarinic antagonist. She also continues with her Symbicort. Her wheezing improved dramatically. She did not need any prednisone. The patient continues to have significant knee pain. She still awaiting to have a pain specialist take care of her pain so she can start physical therapy and start strengthening her knee. She still looking to undergo surgery. She does not know the details at this point. The patient also has lower extremity edema. I will make sure she has a compression stockings to minimize edema of her lower extremities. 03/06/2022 the patient is here for a pulmonary follow-up visit. From an asthma standpoint the patient has been having worsening respiratory symptoms now will during the spring season. She has had to use her rescue inhaler more regularly. She has not been using the Spiriva which is okay. She still continues on the Symbicort. She also uses her allergy medicine. She continues on the Eliquis that she is tolerating well. Recently she did have ortho scopic evaluation of her knee demonstrating significant arthritis in addition to meniscus injuries an ACL tendon injury. The patient was able to get a cleaning of her joint to some degree. But, she the patient requires a total knee replacement. This is scheduled most likely from the fall. Meantime the patient needs to lose weight. She will be referred to a dietitian. I also gave her some advice as far as knee replacement. She has tried medical weight management, but, did not tolerate the medications. No difficulties with the Eliquis. She has not had any evidence of bleeding. And postoperatively the patient did well without any evidence of signs of thrombosis. 09/29/2022 the patient has a telehealth visit today. She was having worsening respiratory symptoms the last couple days. She also complains of sin us congestion. She tested negative for COVID-19. She has had some chills in addition to a sore throat. Likely has a viral syndrome. Seems to be working down in usually activates her asthma. She has not been using her Symbicort as regularly. She has been complaining of some chest tightness. [id number] severity. Seems to improve using her inhaler. She also has a nebulizer that she can use. Based on his symptoms indeed she may have the flu. Although the only way of knowing for sure is that she will need to have a flu swab. 09/28/2023 the patient is here for a pulmonary follow-up visit. The patient overall is doing about the same from the orthopedic issue. Still having significant right knee pain. She did have arthroscopic surgery, but, ultimately needs a repeat total knee replacement. She is following closely with orthopedic surgery. Because of her significant disability she has been able to go back to work. At this point the patient is significantly overweight she is already losing weight and she is part of a bariatric program. She is trying to undergo a gastric sleeve in the coming months. From a respiratory status the patient does have a history of asthma. She has been stable on the current therapy. She has not had any recent flare-ups. She does have Symbicort as a maintenance inhaler. The patient did undergo spirometry dating her spirometry numbers are perfectly normal which is reassuring. In addition to that she has had history of recurrent blood clots. The patient has been on long-term anticoagulation with Eliquis which she tolerated well. Prior to that she was on Coumadin but had issues with hair loss and she was not happy with that. The Eliquis has been working very well. Now going to surgery the patient will have to stop the Eliquis per the surgeon's protocol but we have to restart anticoagulation or antithrombotic therapy quickly after surgery to minimize the risk of recurrent clotting the patient indeed is high risk for recurrent blood clots. Clinically the patient is doing very good and she is able to consent for surgery and also anesthesia at this time. 04/15/2024 the patient is here for a pulmonary follow-up visit. The patient continues to do well. She did undergo her bariatric surgery at [facility] and went very well. She did stop the Eliquis as prescribed and she was able to restart the Eliquis without any issues. No minor major bleeding noted. She has been monitoring closely her protein intake and has been taking her supplemental vitamins. Overall she is doing very good with her recovery after her surgery. She will be seeing her orthopedic doctor sometime in April to assess her physical state in potentially schedule her surgery. The patient needs to undergo a total knee replacement on the right side. From a respiratory status she is doing well. She has been off the Symbicort which is reassuring. She has a rescue inhaler that she uses as needed. She continues on full-dose Eliquis without any issues. She knows that she will be on anticoagulation lifelong. [facility] Medical History (Updated 11/13/23 @ 16:49 by Marjan Joy MD) Osteoarthritis of right knee Knee pain, right Lower extremity edema Pulmonary emboli Asthma Surgical History History of cholecystectomy History of lateral meniscus repair of right knee History of hysterectomy Family History Mother No problems noted. Father Prostate cancer Social History Housing: House Patient Tobacco Use Status: Never used Tobacco e-Cigarette/Vaping Use: Never Used Second Hand Smoke Exposure: No service: No Current occupational status: disabled Cognitive needs: Yes Hearing needs: No Vision needs: Yes Review of Systems Const Denies chills, Denies night sweats and Reports weight loss ENT Denies change in voice, Denies lip swelling, Denies mouth pain, Reports nasal congestion, Reports nasal discharge and Denies tongue swelling Card Denies chest pain Resp Reports cough and Denies wheezing GI Denies abdominal pain Musc Reports as per HPI, Reports arthralgias, Reports joint swelling, Reports limited range of motion, Reports muscle weakness and Reports stiffness Skin/Breast Denies rash Neuro Denies Neuro-related abnormal movements Psych Denies no additional complaints Minh/Lymph Denies easy bleeding and Denies lymphadenopathy Aller/Immun Denies lip swelling, Denies tongue swelling and Denies wheezing Physical Exam Vital Signs: Last Vital Signs Pulse 76 04/15/24 14:09 Pulse Ox 99 04/15/24 14:09 Oxygen Delivery Method Room Air 04/15/24 14:09 BMI result Body Mass Index 43.7 Const General: cooperative, healthy appearing, no acute distress and alert HEENT Head: Yes normal to inspection Eyes General: appearance normal, both eyes and all related structures Neck Neck: Yes normal visual inspection Chest Chest palpation & inspection: normal inspection of the chest Resp Effort & Inspection: normal respiratory effort Auscultation: no wheezes and diminished lung sounds Cardio Rate: regular rate Rhythm: regular rhythm Heart sounds: S1 normal heart sound present and S2 normal heart sound present GI Palpation (GI): Soft to palpation Skin General skin exam: no rashes or lesions noted Extrem General: Yes no clubbing, cyanosis or edema Assessment & Plan Assessment & Plan (1) Asthma: Code(s): J45.909 - Unspecified asthma, uncomplicated Category: Medical Qualifiers: Asthma complication type: uncomplicated Asthma persistence: persistent Asthma severity: moderate Qualified Code(s): J45.40 - Moderate persistent asthma, uncomplicated (2) Pulmonary emboli: Code(s): I26.99 - Other pulmonary embolism without acute cor pulmonale Category: Medical Qualifiers: Acute cor pulmonale presence: without acute cor pulmonale Chronicity: chronic Pulmonary embolism type: unspecified Qualified Code(s): I27.82 - Chronic pulmonary embolism (3) Knee pain, right: Code(s): M25.561 - Pain in right knee Category: Medical Qualifiers: Chronicity: chronic Qualified Code(s): M25.561 - Pain in right knee; G89.29 - Other chronic pain Plan Symbicort holding Short-acting beta agonist as needed continue Eliquis twice a day continue Zyrtec as needed Compression stockings recovering from her bariatric surgery. Orthopedic eval in April for RTKR hopefully in 2-3 months, once fully recovered from her bariatric surgery Follow-up in 6-8 months Medications: Refilled albuterol sulfate 2.5 mg (3 mL) inhalation Q4-6H PRN 180 mL 0RF shortness of breath or wheezing albuterol sulfate 90 mcg/actuation 2 inhalations inhalation Q6H PRN 18 grams 12RF shortness of breath or wheezing 30 days J44.9 - Chronic obstructive pulmonary disease, unspecified Coding Level of Care Code Est Pt Level 4 (58185) Complex EM visit Add On G2211 Diagnoses Moderate persistent asthma without complication J45.40 Asthma complication type: uncomplicated Asthma persistence: persistent Asthma severity: moderate Chronic pulmonary embolism without acute cor pulmonale, unspecified pulmonary embolism type I27.82 Acute cor pulmonale presence: without acute cor pulmonale Chronicity: chronic Pulmonary embolism type: unspecified Chronic pain of right knee M25.561; G89.29 Chronicity: chronic Time Spent (min) 20
== END 2024-04-15 14:31 | disposition home or self-care (01) ==
PROVIDERS: PCP Internal Medicine; Visit Provider Hospitalist
DX: J45.40 Moderate persistent asthma, uncomplicated (principal); I27.82 Chronic pulmonary embolism; M25.561 Pain in right knee; G89.29 Other chronic pain
CPT/HCPCS: 99214; G2211

== ENCOUNTER → 2024-04-15 14:03 | Outpatient (BNVA) | payer OTHER, SELFPAY | PROVIDERS: PCP Internal Medicine; Visit Provider Hospitalist | DX: J45.40 Moderate persistent asthma, uncomplicated (principal); I27.82 Chronic pulmonary embolism; G89.29 Other chronic pain; M25.561 Pain in right knee; Z79.01 Long term (current) use of anticoagulants | CPT/HCPCS: 99212 ==

== ENCOUNTER 2024-06-26 10:05 | Outpatient (AMB) | payer OTHER, SELFPAY ==
--- NOTE | 2024-06-26 10:10 | A.OFFVIS_ITS ---
Vital Signs 06/26/24 10:11 Height 4 ft 10 in Weight 190 lb BMI 39.7 BP 134/78 Blood Pressure Location Lt brachial Position Sitting Pulse 66 Pulse Source Pulse Oximeter Pulse Oximetry (%) 98 Oxygen Delivery Method Room Air Intake Visit Reasons: Clearance Knee Replacement-07/10/24 Allergies No Known Allergies Allergy (Verified 06/26/24 10:10) HPI Comments Details: The patient is a 48-year-old woman with a known history of moderate persistent asthma, history recurring pulmonary emboli currently on lifelong anticoagulation and also morbid obesity. Her respiratory status has been stable. 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 But, for now she has been doing well from the asthma standpoint. In regards of the history of pulmonary emboli she continues on the Eliquis 5 mg twice a day. She is wondering about 1 is safe to decrease the dose. I do feel she should be at le ast on a year's worth therapeutic Eliquis prior to deciding to cut down to half dose. She is currently dealing with an issue with her right knee. She has a torn ACL and is awaiting getting a brace for this injury. She continues to try to exercise and she lost approximately around 40 lb as she has continued to exercise and maintain a lifestyle change. In the meantime the patient does have a torn ACL. Because of her history of blood clots the patient cannot have surgery done locally. Once this duration improves with the she should go to [place] to have an evaluation. In the meantime for her anxiety that is ultimately affecting her ability to function and also at worsening respiratory symptoms the patient is requesting to talk to a mental health counselor. I will help her make arrangements for in order for her to do that. 09/28/2023 the patient is here for a pulmonary follow-up visit. The patient overall is doing about the same from the orthopedic issue. Still having significant right knee pain. She did have arthroscopic surgery, but, ultimately needs a repeat total knee replacement. She is following closely with orthopedic surgery. Because of her significant disability she has been able to go back to work. At this point the patient is significantly overweight she is already losing weight and she is part of a bariatric program. She is trying to undergo a gastric sleeve in the coming months. From a respiratory status the patient does have a history of asthma. She has been stable on the current therapy. She has not had any recent flare-ups. She does have Symbicort as a maintenance inhaler. The patient did undergo spirometry dating her spirometry numbers are perfectly normal which is reassuring. In addition to that she has had history of recurrent blood clots. The patient has been on long-term anticoagulation with Eliquis which she tolerated well. Prior to that she was on Coumadin but had issues with hair loss and she was not happy with that. The Eliquis has been working very well. Now going to surgery the patient will have to stop the Eliquis per the surgeon's protocol but we have to restart anticoagulation or antithrombotic therapy quickly after surgery to minimize the risk of recurrent clotting the patient indeed is high risk for recurrent blood clots. Clinically the patient is doing very good and she is able to consent for surgery and also anesthesia at this time. 04/15/2024 the patient is here for a pulmonary follow-up visit. The patient continues to do well. She did undergo her bariatric surgery at [facility] and went very well. She did stop the Eliquis as prescribed and she was able to restart the Eliquis without any issues. No minor major bleeding noted. She has been monitoring closely her protein intake and has been taking her supplemental vitamins. Overall she is doing very good with her recovery after her surgery. She will be seeing her orthopedic doctor sometime in April to assess her physical state in potentially schedule her surgery. The patient needs to undergo a total knee replacement on the right side. From a respiratory status she is doing well. She has been off the Symbicort which is reassuring. She has a rescue inhaler that she uses as needed. She continues on full-dose Eliquis without any issues. She knows that she will be on anticoagulation lifelong. 06/26/2024 the patient is here for a preoperative evaluation. The patient overall has been doing well from a respiratory status. The patient has not required a maintenance inhalers. She also has not required her rescue inhaler. She does continue on full-dose Eliquis for the history of recurrent blood clots. The patient now is scheduled to undergo a total knee replacement. The patient does have increased risk for perioperative pulmonary complications including thromboembolic disease, bronchospasms, atelectasis hypoxia and pneumonia. At this point the patient is medically optimize may be able to proceed with anesthesia and surgery. I do believe that she should not have any restrictions from anesthesia point of view. She can not tolerate general surgery. We did talk about her anticoagulation prior to surgery. Once the patient has surgery she should go back on Lovenox or straight on Eliquis if deemed safe by her surgeon. The patient follow-up in 3-4 months after his surgery to reassess. [facility] Medical History (Updated 11/13/23 @ 16:49 by Marjan Joy MD) Osteoarthritis of right knee Knee pain, right Lower extremity edema Pulmonary emboli Asthma Surgical History History of cholecystectomy History of lateral meniscus repair of right knee History of hysterectomy Family History Mother No problems noted. Father Prostate cancer Social History Housing: House Patient Tobacco Use Status: Never used Tobacco e-Cigarette/Vaping Use: Never Used Second Hand Smoke Exposure: No service: No Current occupational status: disabled Cognitive needs: Yes Hearing needs: No Vision needs: Yes Review of Systems Const Denies chills, Denies night sweats and Reports weight loss ENT Denies change in voice, Denies lip swelling, Denies mouth pain, Reports nasal congestion, Reports nasal discharge and Denies tongue swelling Card Denies chest pain Resp Reports cough and Denies wheezing GI Denies abdominal pain Musc Reports as per HPI, Reports arthralgias, Reports joint swelling, Reports limited range of motion, Reports muscle weakness and Reports stiffness Skin/Breast Denies rash Neuro Denies Neuro-related abnormal movements Psych Denies no additional complaints Minh/Lymph Denies easy bleeding and Denies lymphadenopathy Aller/Immun Denies lip swelling, Denies tongue swelling and Denies wheezing Physical Exam Vital Signs: Last Vital Signs Pulse 66 06/26/24 10:11 BP 134/78 06/26/24 10:11 Pulse Ox 98 06/26/24 10:11 Oxygen Delivery Method Room Air 06/26/24 10:11 BMI result Body Mass Index 39.7 Const General: cooperative, healthy appearing, no acute distress and alert HEENT Head: Yes normal to inspection Eyes General: appearance normal, both eyes and all related structures Neck Neck: Yes normal visual inspection Chest Chest palpation & inspection: normal inspection of the chest Resp Effort & Inspection: normal respiratory effort Auscultation: clear to auscultation bilaterally and no wheezes Cardio Rate: regular rate Rhythm: regular rhythm Heart sounds: S1 normal heart sound present and S2 normal heart sound present GI Palpation (GI): Soft to palpation Skin General skin exam: no rashes or lesions noted Extrem General: Yes no clubbing, cyanosis or edema Assessment & Plan Assessment & Plan (1) Pre-op chest exam: Code(s): Z01.811 - Encounter for preprocedural respiratory examination Category: Medical (2) Asthma: Code(s): J45.909 - Unspecified asthma, uncomplicated Category: Medical Qualifiers: Asthma complication type: uncomplicated Asthma persistence: persistent Asthma severity: moderate Qualified Code(s): J45.40 - Moderate persistent asthma, uncomplicated (3) Pulmonary emboli: Code(s): I26.99 - Other pulmonary embolism without acute cor pulmonale Category: Medical Qualifiers: Acute cor pulmonale presence: without acute cor pulmonale Chronicity: chronic Pulmonary embolism type: unspecified Qualified Code(s): I27.82 - Chronic pulmonary embolism (4) Knee pain, right: Code(s): M25.561 - Pain in right knee Category: Medical Qualifiers: Chronicity: chronic Qualified Code(s): M25.561 - Pain in right knee; G89.29 - Other chronic pain Plan Proceed with anesthesia and orthopedic surgery. General anesthesia will be preferred. Please provide pre and post bronchodilator therapy as needed. Will take Eliquis last dose on 07/06. Should start Lovenox 07/07 and take the last dose the morning prior to her surgery. Should restart either Lovenox or Eliquis as soon as is safe after her surgery. Short-acting beta agonist as needed continue Eliquis twice a day continue Zyrtec as needed Follow-up in 3-4 months Medications: New albuterol sulfate 90 mcg/actuation 2 puffs inhalation QID PRN 8.5 grams 11RF shortness of breath or wheezing 30 days Coding Level of Care Code Est Pt Level 4 (31149) Diagnoses Pre-op chest exam Z01.811 Moderate persistent asthma without complication J45.40 Asthma complication type: uncomplicated Asthma persistence: persistent Asthma severity: moderate Chronic pulmonary embolism without acute cor pulmonale, unspecified pulmonary embolism type I27.82 Acute cor pulmonale presence: without acute cor pulmonale Chronicity: chronic Pulmonary embolism type: unspecified Chronic pain of right knee M25.561; G89.29 Chronicity: chronic Time Spent (min) 17
[2024-06-26 10:11] VITALS: BP 134/78; PULSE 66; O2SAT 98; BMI 39.7
== END 2024-06-26 10:32 | disposition home or self-care (01) ==
PROVIDERS: PCP Internal Medicine; Visit Provider Hospitalist
DX: Z01.811 Encounter for preprocedural respiratory examination (principal); J45.40 Moderate persistent asthma, uncomplicated; I27.82 Chronic pulmonary embolism; M25.561 Pain in right knee; G89.29 Other chronic pain
CPT/HCPCS: 99214

== ENCOUNTER → 2024-06-26 10:05 | Outpatient (BNVA) | payer OTHER, SELFPAY | PROVIDERS: PCP Internal Medicine; Visit Provider Hospitalist | DX: Z01.811 Encounter for preprocedural respiratory examination (principal); J45.40 Moderate persistent asthma, uncomplicated; I27.82 Chronic pulmonary embolism; M25.561 Pain in right knee; G89.29 Other chronic pain | CPT/HCPCS: 99212 ==

== ENCOUNTER 2024-09-22 14:30 | Outpatient (REF) | payer OTHER, SELFPAY ==
--- NOTE | ~2024-09-22 | US_ITS ---
EXAMINATION: US THYROID HISTORY: E04.1 - Nontoxic single thyroid nodule TECHNIQUE: Real-time grayscale ultrasound imaging was performed and images were reviewed. COMPARISON: There are no prior studies for comparison. FINDINGS: SIZE: The right thyroid lobe measures 4.5 x 1.8 x 1.4 cm. The left thyroid lobe measures 5.7 x 2.0 x 2.0 cm. The isthmus measures 6 mm. FLOW: Flow to the gland is normal. ECHOGENICITY: The echotexture of the gland is homogeneous. NODULES: Multiple bilateral nodules are identified as described below: Nodule #: 1 Location: Isthmus measuring 9 x 4 x 5 mm. Shape: Ovoid, wider than tall Margins: Well-circumscribed Echotexture: Hypoechoic Morphology: Solid Calcifications: Punctate echogenic foci are identified TIRADS: TR5: Highly suspicious. Follow, as less than 10 mm in size Nodule #: 2 Location: Right upper pole measuring 5 x 5 x 5 mm Shape: Round Margins: Well-circumscribed Echotexture: Hypoechoic Morphology: Spongiform Calcifications: None TIRADS: TR2: Not suspicious Nodule #: 3 Location: Midportion of the left thyroid lobe measuring 12 x 8 x 16 mm Shape: Oval, wider than tall Margins: Ill-defined Echotexture: Hypoechoic Morphology: Spongiform Calcifications: None TIRADS: TR2: Not suspicious Nodule #: 4 Location: Left lower pole measuring 2.1 x 1.9 x 2.8 cm Shape: Ovoid, taller than wide Margins: Ill-defined Echotexture: Isoechoic Morphology: Solid Calcifications: None TIRADS: TR4: Moderately suspicious. FNA is recommended US/US thyroid IMPRESSION: Multiple bilateral thyroid nodules as described. The 2.1 x 1.9 x 2.8 cm nodule at the lower pole of the left thyroid lobe is moderately suspicious and fine needle aspiration is recommended. The subcentimeter nodular at the isthmus is suspicious, but less than a centimeter in size and can be followed. Electronically signed by: Ron Madrigal MD 09/30/2024 01:27 PM [facility]
--- OUTSIDE RECORDS SUMMARY | 2024-09-22 14:32 | XMS_ITS | Continuity of Care Document ---
Author Organization [facility] [address] [place] [address] Care Team Providers Care Content Engineer Name Role Phone GAGE ISIDRO Primary Care Provider Assessment Encounter Date Assessment Date Assessment LastModified by Organization Details LastModified Time 09/03/2024 09/03/2024 Assessment: Patient had better tolerance to ther ex today and had slight improvement in knee flexion ROM. She still has significant guarding and quad tightness but tolerance to PROM has improved since BLAISE. Patient still displays significant quad weakness and is unable to complete SLR and required circumduction of the hip to ascend 6 step. Plan: Continue POC. michelle Not available 09/03/2024 14:28:17 Plan of Treatment Reminders Order Date Submit Date Provider Last Modified By Organization Details Last Modified Time Details Appointments PT FOLLOW -UP 024 12:00PM Emilia Wood, [facility] Not available Not available Not available PT FOLLOW -UP 025 01:30PM Bethany Muse BAG END SEWER Not available Not available Not available PT FOLLOW -UP 025 11:00AM Bethany Muse BAG END SEWER Not available Not available Not available PT FOLLOW -UP 025 10:00AM Judd Hodgson DPT Not available Not available Not available PT FOLLOW -UP 025 12:30PM Freddie Adame BAG END SEWER Not available Not available Not available PT FOLLOW -UP 025 11:00AM Freddie Adame BAG END SEWER Not available Not available Not available POST OP 10 025 01:40PM Justino Richter MD Not available Not available Not available Lab None record ed. Referral None record ed. Procedures None record ed. Surgeries None record ed. Imaging None record ed. Medication Orders None record ed. Patient TargetsNo targets recorded. Patient InstructionsNo instructions recorded. Reason for Referral None Reported. Results Created Date Observation Date Name Description Value Unit Range Abnormal Flag Note LastModifiedBy Organization Detail LastModifiedTime 08/20/20 24 08/20/2024 XR, knee, 3 view [email or web address]:/ [email or web address] ?Encry pted=s hAaTro YD8dLq bEUv6g %2BXZw aYqtaq 0bqfl% 2Fg9IQ a4ajBk vP9nXo QUaueC m3YtLR FvZlgJ JJ8mAn HZtai3 7a0658 AC0Kqa XiAWKW kKiQtr MwF INTERFACE [facility] [address], [place], [address], 08/20/2024 14:26:23 08/20/20 24 08/20/2024 XR, knee, 3 view [email or web address] ?Encry pted=s hAaTro YD8dLq bEUv6g %2BXZw aYqtaq 0bqfl% 2Fg9IQ a4ajBk vP9nXo QUaueC m3YtLR FvZlgJ JJ8mAn HZtai3 9d5220 AC0Kqa XiAWKW kKiQtr MwF INTERFACE [facility] [address] [facility] [address], [place], [address], 08/20/2024 14:26:25 09/10/20 24 09/10/2024 US, laisha xkelly s, lower extre mity No observ ation record ed. [email or web address] [facility] [address], [place], [address], 09/11/2024 13:18:08 09/10/20 24 09/10/2024 US, duple x venou s, lower extre mity No observ ation record ed. jkoe [facility] [address] [facility] [address], [place], [address], 09/11/2024 13:18:09 09/16/20 24 09/16/2024 XR, knee, 3 view [email or web address] ?Encry pted=s hAaTro YD8dLq bEUv6g %2BXZw aYqtaq 0bqfl% 2Fg9IQ a4ajBk vP9nXo QUaueC m3YtLR FvZlgJ JJ8mAn HZtai3 9y9455 AC0Kqb nuHVqa lKiQtr MwF INTERFACE [facility] [address], [place], [address], 09/16/2024 08:43:17 09/16/20 24 09/16/2024 XR, knee, 3 view [email or web address]:/ [email or web address] ?Encry pted=s hAaTro YD8dLq bEUv6g %2BXZw aYqtaq 0bqfl% 2Fg9IQ a4ajBk vP9nXo QUaueC m3YtLR FvZlgJ JJ8mAn HZtai3 1j5679 AC0Kqb nuHVqa lKiQtr MwF INTERFACE [facility] [address], [place], [address], 09/16/2024 08:43:19 Result Notes None recorded. Problems Name Problem SNOMED Code Status Onset Date Resolution Date Notes Provider Name and Address Organization Details Recorded Time No complaints 500433189 Active Status : 'A'; [facility] Available [facility] 09:16:26 Ankylosis of right knee joint 1723488537580 01 Active 2023 Justino Richter MD [address], [place], [address] , [facility] - [facility] 4 15:12:33 Pain of right knee joint 2407600694985 00 Active 2023 JASBIR solorio [place] - [facility] 11:44:08 Swelling of bilateral lower limbs 579291976 Active 2023 JASBIR JOSÉ null, [facility] 09:07:45 Osteoarthr itis of right knee joint 1394864247580 00 Active 2023 Justino Richter MD [address], [place], [address] , [facility] 4 18:01:41 Osteoarthr itis of left knee joint 9547225867904 09 Active 2023 Justino Richter MD [address], [place], [address] , [facility] 18:01:42 Problem Notes None recorded. Procedures Surgical History Date Name Laterality Status Provider Name and Address Organization Details Recorded Time 08/25/20 11315 Therapeutic Exercise (1:1) completed Freddie Adame PTA [address], [place], [address], [facility] 08/25/2024 08:44:38 08/25/20 80122: Hot or Cold Pack completed Freddie Adame PTA [address], [place], [address], [facility] 08/25/2024 08:44:38 08/25/20 29719: Manual therapy completed Freddie Adame PTA [address], [place], [address], [facility] 08/25/2024 14:29:03 08/19/20 44503 Therapeutic Exercise (1:1) completed Freddie Adame PTA [address], [place], [address], [facility] 08/18/2024 14:25:47 08/19/20 95030: Hot or Cold Pack completed Freddie Adame PTA [address], [place], [address], [facility] 08/18/2024 14:25:47 08/19/20 48494: Manual therapy completed Freddie Adame, [facility]AG [employer] SEWER [address], [place], [address], [facility] 08/18/2024 14:25:47 08/14/20 54151 Therapeutic Exercise (1:1) completed Freddie Adame BAG END SEWER [address], [place], [address], [facility] 08/12/2024 16:54:25 08/14/20 70965: Hot or Cold Pack completed Freddie Adame, BAG END SEWER [address], [place], [address], [facility] 08/12/2024 16:54:25 08/14/20 97534: Manual therapy completed Freddie Adame BAG END SEWER [address], [place], [address], [facility] 08/12/2024 16:54:25 08/12/20 26600 Therapeutic Exercise (1:1) completed Freddie Adame BAG END SEWER [address], [place], [address], [facility] 08/12/2024 09:41:30 08/12/20 48113: Hot or Cold Pack completed Freddie Adame BAG END SEWER [address], [place], [address], [facility] 08/12/2024 09:41:30 08/12/20 79364: Manual therapy completed Freddie Adame, BAG END SEWER [address], [place], [address], [facility] 08/12/2024 09:41:30 08/06/20 50083 Therapeutic Exercise (1:1) completed Freddie Adame, BAG END SEWER [address], [place], [address], [facility] 08/06/2024 14:46:53 08/06/20 74758: Hot or Cold Pack completed Freddie Adame, BAG END SEWER [address], [place], [address], [facility] 08/05/2024 18:30:29 08/06/20 68897: Manual therapy completed Freddie Adame PTA [address], [place], [address], [facility] 08/05/2024 18:30:29 08/04/20 89354 Therapeutic Exercise (1:1) completed Freddie Adame PTA [address], [place], [address], [facility] 08/04/2024 09:44:54 08/04/20 92425: Hot or Cold Pack completed Freddie Adame PTA [address], [place], [address], [facility] 08/04/2024 09:44:54 08/04/20 75464: Manual therapy completed Freddie Adame PTA [address], [place], [address], [facility] 08/04/2024 09:44:54 07/31/20 60038 Therapeutic Exercise (1:1) completed Freddie Adame PTA [address], [place], [address], [facility] 07/31/2024 14:39:01 07/31/20 63912: Hot or Cold Pack completed Freddie Adame PTA [address], [place], [address], [facility] 07/30/2024 10:16:09 07/31/20 72827: Manual therapy completed Freddie Adame PTA [address], [place], [address], [facility] 07/30/2024 10:16:09 07/29/20 35350 Therapeutic Exercise (1:1) completed Judd Hodgson DPT [address], [place], [address], [facility] 07/29/2024 18:12:01 07/29/20 54163: Hot or Cold Pack completed Judd Hodgson DPT [address] [facility], [place], [address], [facility] 07/29/2024 18:12:13 07/29/20 53318: Manual therapy completed Judd Hodgson DPT [address], [place], [address], [facility] 07/29/2024 18:12:06 07/24/20 82884 Therapeutic Exercise (1:1) completed Judd Hodgson DPT [address] [facility], [place], [address], [facility] 07/23/2024 14:29:24 07/24/20 94938: Low complexity PT Eval completed Judd Hodgson DPT [address], [place], [address], [facility] 07/23/2024 14:29:19 02/01/20 Zilretta Knee Injection, Bilateral completed Justino Richter MD [address], [place], [address], [facility] 02/01/2024 18:01:54 Imaging Results None recorded. Procedure Notes None recorded. Medical Equipment None Reported. Allergies No known drug allergies Medications Name Sig Start Date Stop Date Status Note LastModified by Organization Details LastModified Time amoxicillin 500 mg capsule TAKE 1 CAPSULE BY MOUTH EVERY 8 HOURS FOR 7 DAYS active Not Available Not Available No t Available prednisone 10 mg tablet 04/22 completed Not Available Not Available Not Available doxycycline hyclate 100 mg capsule TAKE 1 CAPSULE BY MOUTH TWICE DAILY FOR 10 DAYS 04/22 completed Not Available Not Available Not Available tizanidine 2 mg tablet TAKE 1 TABLET BY MOUTH THREE TIMES DAILY active Not Available Not Available No t Available tramadol 50 mg tablet TAKE 1 TABLET BY MOUTH EVERY 4 TO 6 HOURS FOR 7 DAYS. TAKE WITH A MEAL active Not Available Not Available No t Available hydromorpho ne 2 mg tablet active Not Available Not Available Not Available pantoprazol e 40 mg tablet,jim yed release TAKE 1 TABLET BY MOUTH EVERY DAY active Not Available Not Available No t Available gabapentin 300 mg capsule TAKE ONE CAPSULE BY MOUTH THREE TIMES DAILY 04/22 completed Not Available Not Available Not Available omeprazole 20 mg capsule,del ayed release TAKE 1 CAPSULE BY MOUTH TWICE DAILY active Not Available Not Available No t Available polyethylen e glycol 3350 17 gram/dose oral powder active Not Available Not Available Not Available albuterol sulfate HFA 90 mcg/actuati on aerosol inhaler INHALE 2 PUFFS BY MOUTH FOUR TIMES DAILY NEEDED FOR SHORTNESS OF BREATH OR WHEEZING active Not Available Not Available No t Available ondansetron 4 mg disintegrat ing tablet DISSOLVE 1 TABLET ON THE TONGUE EVERY 8 HOURS FOR 7 DAYS NEEDED FOR NAUSEA OR VOMITING 07/24 completed Not Available Not Available Not Available oxycodone 5 mg tablet TAKE 1 TO 2 TABLETS BY MOUTH EVERY 4 HOURS NEEDED FOR SEVERE PAIN. 07/24 completed Not Available Not Available Not Available enoxaparin 30 mg/0.3 mL subcutaneou s syringe INJECT 30MG/0.3M L UNDER THE SKIN EVERY 12 HOURS FOR 3 DAYS 07/24 completed Not Available Not Available Not Available enoxaparin 80 mg/0.8 mL subcutaneou s syringe active Not Available Not Available No t Available cyclobenzap rine 5 mg tablet 04/22 completed Not Available Not Available Not Available oxycodone HCl-oxycodo ne-ASA as directed 1-2 TABLETS EVERY 4-[address] WHILE TAKING THIS MEDICATIO N 06/15 completed Statu s: 'Disc ontin ued'; Not Available Not Available Not Available Eliquis 5 mg tablet TAKE 1 TABLET BY MOUTH TWICE DAILY active Not Available Not Available No t Available Eliquis 2.5 mg tablet TAKE 1 TABLET BY MOUTH TWO TIMES A DAY FOR 7 DAYS AFTER SURGERY, THEN RESUME HOME DOSE OF 5MG. active Not Available Not Available No t Available Lagevrio 200 mg capsule (EUA) TAKE 4 CAPSULES BY MOUTH EVERY 12 HOURS FOR 5 DAYS 04/22 completed Not Available Not Available Not Available Vitals None Recorded Social History Question Answer Notes LastModified by Organizat ion Details LastModified Time Tobacco Smoking Status Never Smoker Kathleen solorio [place] - [facility] 07/24/2024 14:15:28 Do You Or Have You Ever Used E-cigarettes Or Vape? Never Used Electronic Cigarettes Information not available 07/24/2024 What Is Your Relationship Status? Information not available 07/24/2024 Do You Use Any Illicit Or Recreational Drugs? No Information not available 07/24/2024 Do You Or Have You Ever Used Any Other Forms Of Tobacco Or Nicotine? No Information not available 07/24/2024 Sex: Unknown Functional Status None recorded. Mental Status None recorded. Family History Nothing Reported. Medical History Condition Response Arthritis Y Gynecological HistoryNo gynecological history recorded. Obstetrics History GPAL:G 0 P 0 0 0 0 Past Encounters Encounter ID Performer Location Encounter Start Date Encounter Closed Date Diagnosis/Indication Diagnosis SNOMED-CT Code Diagnosis ICD10 Code [id number] [facility] [address] [place] [address] 08/04/2024 13:38:13 08/04/2024 15:48:53 History of total knee arthroplasty 3182514449 105 Z96.050 [id number] [facility] [address] [place] [address] 08/06/2024 13:43:11 08/06/2024 14:47:31 History of total knee arthroplasty 0463241965 105 Z96.926 [id number] Epif[facility] [address] [place] [address] 08/07/2024 12:52:14 08/20/2024 12:07:22 History of right total knee replacement 2337383241 887397 Z96.585 [id number] [facility] [address] [place] [address] 08/12/2024 13:06:55 08/12/2024 14:57:39 History of total knee arthroplasty 3652888794 105 Z96.138 [id number] [facility] [address] [place] [address] 08/14/2024 13:37:55 08/14/2024 14:39:00 History of total knee arthroplasty 3607976575 105 Z96.207 [id number] Judd Hodgson DPT [facility] [address] [place] [address] 08/19/2024 13:39:45 08/19/2024 14:44:19 History of total knee arthroplasty 5665274067 105 Z96.392 [id number] MD Michelle Portillo [address] [place] [address] 08/20/2024 13:30:39 09/08/2024 12:12:38 History of right total knee replacement 5254578318 600284 Z96.651 Ankylosis of right knee joint 8284939009 30655 M24.740 [id number] Judd Hodgson DPT [facility] [address] [place] [address] 08/25/2024 13:38:40 08/25/2024 14:30:33 History of total knee arthroplasty 4137101814 105 Z96.104 [id number] Judd Hodgson DPT [facility] [address] [place] [address] 08/27/2024 13:22:31 08/27/2024 14:42:09 History of total knee arthroplasty 8811640964 105 Z96.332 [id number] Judd Hodgson DPT [facility] [address] [place] [address] 09/01/2024 09:07:08 09/01/2024 10:21:59 History of total knee arthroplasty 1871535938 105 Z96.935 [id number] Judd Hodgson DPT [facility] [address] [place] [address] 09/02/2024 16:36:40 09/02/2024 17:24:55 History of total knee arthroplasty 9911052260 105 Z96.845 [id number] Judd Hodgson DPT [facility] [address] [place] [address] 09/03/2024 13:28:29 09/03/2024 14:28:52 History of total knee arthroplasty 3086471282 105 Z96.651 Health Concerns Section Related Observation LastModified by Organization Detai ls LastModified Time None Recorded Concern Status LastModified by Organization Details LastModified Time None Recorded Payers Encounter Date Sequence Insurance Name Policy Number Policy Campos Covered Member ID Campos Member ID Guarantor Name 09/03/2024 1 [facility] [employer] - TOGETHER (MEDICAID HMO) [id number] Linda Cleveland [id number] Linda Cleveland Notes Date Note Type Note Provider Name and Address Organization Details Recorded Time 09/03/2024 text/html Patient states she feels better today than yesterday and has been using her CPM a few times a day today at around 110 degrees. Judd Hodgson, DPT [address], [place], [address], [facility] - [facility] 09/03/2024 14:28:30 OBGyn Episode No OBEpisode recorded.
--- OUTSIDE RECORDS SUMMARY | 2024-09-22 14:32 | XMS_ITS | Continuity of Care Document ---
Author Organization [facility] [address] [place] [address] Care Team Providers Care Public Affairs Manager Name Role Phone GAGE ISIDRO Primary Care Provider Assessment Encounter Date Assessment Date Assessment LastModified by Organization Details LastModified Time 09/10/2024 09/10/2024 Assessment: Pt unable to complete full QS without help of ES. She has decreased ROM but also has increased edema including pitting edema into her calf. She is reaching out to the about possible DVT because she has history. Plan: Continue POC. Progress to tolerance [email or web address] Not available 09/10/2024 09:48:59 Plan of Treatment Reminders Order Date Submit Date Provider Last Modified By Organization Details Last Modified Time Details Appointments PT FOLLOW -UP 024 12:00PM Emilia Wood, BIO MEDICAL TECHNICIAN Not available Not available Not available PT FOLLOW -UP 025 01:30PM Bethany Muse BIO MEDICAL TECHNICIAN Not available Not available Not available PT FOLLOW -UP 025 11:00AM Bethany Muse BIO MEDICAL TECHNICIAN Not available Not available Not available PT FOLLOW -UP 025 10:00AM Judd Hodgson, DPT Not available Not available Not available PT FOLLOW -UP 025 12:30PM Freddie Adame PTA Not available Not available Not available PT FOLLOW -UP 025 11:00AM Freddie Adame BIO MEDICAL TECHNICIAN Not available Not available Not available POST [...] a4ajBk vP9nXo QUaueC m3YtLR FvZlgJ JJ8mAn HZtai3 5t7819 AC0Kqa XiAWKW kKiQtr MwF INTERFACE [facility] [address], [place], [address], 08/20/2024 14:26:23 08/20/20 24 08/20/2024 XR, knee, 3 view [email or web address]:/ [email or web address] ?Encry pted=s hAaTro YD8dLq bEUv6g %2BXZw aYqtaq 0bqfl% 2Fg9IQ a4ajBk vP9nXo QUaueC m3YtLR FvZlgJ JJ8mAn HZtai3 4t5653 AC0Kqa XiAWKW kKiQtr MwF INTERFACE [facility] [address], [place], [address], 08/20/2024 14:26:25 09/10/20 24 09/10/2024 US, duple x, venou s, lower extre mity No observ ation record ed. [email or web address] [facility] [address], [address], 09/11/2024 13:18:08 09/10/20 24 09/10/2024 US, duple x, venou s, lower extre mity No observ ation record ed. jkoske [facility] [place] [address], [address], 09/11/2024 13:18:09 09/16/20 24 09/16/2024 XR, knee, 3 view [email or web address]:/ [email or web address] ?Encry pted=s hAaTro YD8dLq bEUv6g %2BXZw aYqtaq 0bqfl% 2Fg9IQ a4ajBk vP9nXo QUaueC m3YtLR FvZlgJ JJ8mAn HZtai3 8f2663 AC0Kqb nuHVqa lKiQtr MwF INTERFACE [facility] [address], [place], [address], 09/16/2024 08:43:17 09/16/20 24 09/16/2024 XR, knee, 3 view [email or web address]:/ [email or web address] ?Encry pted=s hAaTro YD8dLq bEUv6g %2BXZw aYqtaq 0bqfl% 2Fg9IQ a4ajBk vP9nXo QUaueC m3YtLR FvZlgJ JJ8mAn HZtai3 1n7828 AC0Kqb nuHVqa lKiQtr MwF INTERFACE [facility] [address], [place], [address], 09/16/2024 08:43:19 Result Notes None recorded. Problems Name Problem SNOMED Code Status Onset Date Resolution Date Notes Provider Name and Address Organization Details Recorded Time No complaints 722885066 Active Status : 'A'; Not Available [facility] 4 09:16:26 Ankylosis of right knee joint 6677827544416 01 Active 2023 Justino Richter MD [address], [place], [address] , [facility] - [facility] 4 15:12:33 Pain of right knee joint 7225848481020 00 Active 2023 JASBIR solorio [place] - [facility] 4 11:44:08 Swelling of bilateral lower limbs 503070885 Active 2023 JASBIR Martínez'MISSY [facility] 09:07:45 Osteoarthr itis of right knee joint 4678731328655 00 Active 2023 Justino Richter MD [address], [place], [address] , [facility] 4 18:01:41 Osteoarthr itis of left knee joint 3579270657832 09 Active 2023 Justino Richter MD [address], [place], [address] , [facility] 4 18:01:42 Problem Notes None recorded. Procedures Surgical History Date Name Laterality Status Provider Name and Address Organization Details Recorded Time 08/25/20 75448 Therapeutic Exercise (1:1) completed Freddie Adame PTA [address], [place], [address], [facility] 08/25/2024 08:44:38 08/25/20 44189: Hot or Cold Pack completed Freddie Adame PTA [address], [place], [address], [facility] 08/25/2024 08:44:38 08/25/20 63387: Manual therapy completed Freddie Adame PTA [address], [place], [address], [facility] 08/25/2024 14:29:03 08/19/20 37200 Therapeutic Exercise (1:1) completed Freddie Adame PTA [address], [place], [address], [facility] 08/18/2024 14:25:47 08/19/20 22516: Hot or Cold Pack completed Freddie Adame PTA [address], [place], [address], [facility] 08/18/2024 14:25:47 08/19/20 36078: Manual therapy completed Freddie Adame, BIO MEDICAL TECHNICIAN [address], [place], [address], [facility] 08/18/2024 14:25:47 08/14/20 13095 Therapeutic Exercise (1:1) completed Freddie Adame BIO MEDICAL TECHNICIAN [address], [place], [address], [facility] 08/12/2024 16:54:25 08/14/20 36185: Hot or Cold Pack completed Freddie Adame, BIO MEDICAL TECHNICIAN [address], [place], [address], [facility] 08/12/2024 16:54:25 08/14/20 62428: Manual therapy completed Freddie Adame, BIO MEDICAL TECHNICIAN [address], [place], [address], [facility] 08/12/2024 16:54:25 08/12/20 69523 Therapeutic Exercise (1:1) completed Freddie Adame BIO MEDICAL TECHNICIAN [address], [place], [address], [facility] 08/12/2024 09:41:30 08/12/20 69900: Hot or Cold Pack completed Freddie Adame BIO MEDICAL TECHNICIAN [address], [place], [address], [facility] 08/12/2024 09:41:30 08/12/20 49681: Manual therapy completed Freddie Adame BIO MEDICAL TECHNICIAN [address], [place], [address], [facility] 08/12/2024 09:41:30 08/06/20 85512 Therapeutic Exercise (1:1) completed Freddie Adame, BIO MEDICAL TECHNICIAN [address], [place], [address], [facility] 08/06/2024 14:46:53 08/06/20 62271: Hot or Cold Pack completed Freddie Adame BIO MEDICAL TECHNICIAN [address], [place], [address], [facility] 08/05/2024 18:30:29 08/06/20 02670: Manual therapy completed Freddie Adame BIO MEDICAL TECHNICIAN [address], [place], [address], [facility] 08/05/2024 18:30:29 08/04/20 93154 Therapeutic Exercise (1:1) completed Freddie Adame BIO MEDICAL TECHNICIAN [address], [place], [address], [facility] 08/04/2024 09:44:54 08/04/20 53016: Hot or Cold Pack completed Freddie Adame BIO MEDICAL TECHNICIAN [address], [place], [address], [facility] 08/04/2024 09:44:54 08/04/20 77817: Manual therapy completed Freddie Adame BIO MEDICAL TECHNICIAN [address], [place], [address], [facility] 08/04/2024 09:44:54 07/31/20 30023 Therapeutic Exercise (1:1) completed Freddie Adame PTA [address], [place], [address], [facility] 07/31/2024 14:39:01 07/31/20 30206: Hot or Cold Pack completed Freddie Adame PTA [address], [place], [address], [facility] 07/30/2024 10:16:09 07/31/20 70473: Manual therapy completed Freddie Adame BIO MEDICAL TECHNICIAN [address], [place], [address], [facility] 07/30/2024 10:16:09 07/29/20 06095 Therapeutic Exercise (1:1) completed Judd Hodgson DPT [address], [place], [address], [facility] 07/29/2024 18:12:01 07/29/20 49608: Hot or Cold Pack completed Judd Hodgson, DPT [address], [place], [address], [facility] 07/29/2024 18:12:13 07/29/20 24 49157: Manual therapy completed Judd Hodgson DPT [address], [place], [address], [facility] 07/29/2024 18:12:06 07/24/20 24 76589 Therapeutic Exercise (1:1) completed Judd Hodgson DPT [address], [place], [address], [facility] 07/23/2024 14:29:24 07/24/20 24 96937: Low complexity PT Eval completed Judd Hodgson DPT [address], [place], [address], [facility] 07/23/2024 14:29:19 02/01/20 24 Zilretta Knee Injection, Bilateral completed Justino Richter MD [address], [place], [address], [facility] 02/01/2024 18:01:54 Imaging Results None recorded. Procedure [...] Status Never Smoker Kathleen solorio [place] - [facility] 07/24/2024 14:15:28 Do You Or Have You [...] Diagnosis/Indication Diagnosis SNOMED-CT Code Diagnosis ICD10 Code [id number] Judd Hodgson DPT [facility] [address] [place] [address] 08/12/2024 13:06:55 08/12/2024 14:57:39 History of total knee arthroplasty 0528225537 105 Z96.380 [id number] Judd Hodgson DPT [facility] [address] [place] [address] 08/14/2024 13:37:55 08/14/2024 14:39:00 History of total knee arthroplasty 7020605516 105 Z96.376 [id number] [facility] [address] [place] [address] 08/19/2024 13:39:45 08/19/2024 14:44:19 History of total knee arthroplasty 0649376529 105 Z96.924 [id number] MD Michelle Portillo 2nd floor [address] [place] [address] 08/20/2024 13:30:39 09/08/2024 12:12:38 History of right total knee replacement 8726297297 426715 Z96.651 Ankylosis of right knee joint 1954920475 71168 M24.220 [id number] Judd Hodgson DPT [facility] [address] [place] [address] 08/25/2024 13:38:40 08/25/2024 14:30:33 History of total knee arthroplasty 4785116659 105 Z96.119 [id number] Judd Hodgson DPT [facility] [address] [facility] [place] [address] 08/27/2024 13:22:31 08/27/2024 14:42:09 History of total knee arthroplasty 8903523051 105 Z96.383 [id number] TRUPTI PowellT [facility] [address] [facility] [place] [address] 09/01/2024 09:07:08 09/01/2024 10:21:59 History of total knee arthroplasty 9546121096 105 Z96.296 [id number] TRUPTI PowellT [facility] [address] [facility] [place] [address] 09/02/2024 16:36:40 09/02/2024 17:24:55 History of total knee arthroplasty 9552013930 105 Z96.862 [id number] Judd Hodgson DPT [facility] [address] [facility] [place] [address] 09/03/2024 13:28:29 09/03/2024 14:28:52 History of total knee arthroplasty 5135356819 105 Z96.136 [id number] Judd Hodgson DPT [facility] [address] [facility] [place] [address] 09/04/2024 10:39:01 09/05/2024 08:26:23 History of total knee arthroplasty 7552627909 105 Z96.253 [id number] TRUPTI PowellT [facility] [address] [facility] [place] [address] 09/05/2024 14:00:30 09/05/2024 15:20:28 History of total knee arthroplasty 2370259305 105 Z96.618 [id number] TRUPTI PowellT [facility] [address] [place] [address] 09/08/2024 10:42:48 09/08/2024 12:02:20 History of total knee arthroplasty 4925710929 105 Z96.557 [id number] [facility] [address] [place] [address] 09/09/2024 12:51:18 09/09/2024 14:01:29 History of total knee arthroplasty 7134118459 105 Z96.802 [id number] [facility] [address] [place] [address] 09/10/2024 09:22:48 09/10/2024 09:50:16 History of total knee arthroplasty 9694023556 105 Z96.651 Health Concerns Section Related Observation LastModified by Organization Detai ls LastModified Time None Recorded Concern Status LastModified by Organization Details LastModified Time None Recorded Payers Encounter Date Sequence Insurance Name Policy Number Policy Campos Covered Member ID Campos Member ID Guarantor Name 09/10/2024 1 [facility] [employer] - TOGETHER (MEDICAID HMO) [id number] Linda Cleveland [id number] Linda Cleveland Notes Date Note Type Note Provider Name and Address Organization Details Recorded Time 09/10/2024 text/html Patient states the knee feels really swollen today and having difficulty getting the leg to straighten and fire the quad. Judd Hodgson DPT [address], [place], [address], [facility] - [facility] 09/10/2024 09:50:09 OBGyn Episode No OBEpisode recorded.
--- OUTSIDE RECORDS SUMMARY | 2024-09-22 14:33 | XMS_ITS | Continuity of Care Document ---
Author Organization [facility] [address] [place] [address] Care Team Providers Care Service Manager Name Role Phone GAGE ISIDRO Primary Care Provider Assessment Encounter Date Assessment Date Assessment LastModified by Organization Details LastModified Time 08/27/2024 08/27/2024 Assessment: See progress note above. Plan: Continue POC. Progress to tolerance [id number] Not available 08/27/2024 14:41:06 Plan of Treatment Reminders Order Date Submit Date Provider Last Modified By Organization Details Last Modified Time Details Appointments PT FOLLOW -UP 024 12:00PM Emilia Wood, [employer] Not available Not available Not available PT FOLLOW -UP 025 01:30PM Bethany Muse [employer] Not available Not available Not available PT FOLLOW -UP 025 11:00AM Bethany Muse [employer] INST[employer]ER Not available Not available Not available PT FOLLOW -UP 025 10:00AM Judd Hodgson DPT Not available Not available Not available PT FOLLOW -UP 025 12:30PM Freddie Adame [employer] Not available Not available Not available PT FOLLOW -UP 025 11:00AM Freddie Adame [employer] Not available Not available Not available POST OP 10 025 01:40PM Justino Richter MD Not available Not available Not available Lab None record ed. Referral None record ed. Procedures None record ed. Surgeries None record ed. Imaging None record ed. Medication Orders None record ed. Patient Targets Encounter Date Encounter Id Patient Goals Patient Target Last Modified By Organization Details Last Modified Time 08/27/[id number] custodial goal of Right Knee PROM NOTE Not available Not available Not available equipment operator intermodal yard goal of Walking up or down stairs NOTE Not available Not available Not available equipment operator intermodal yard goal of Walking up or down stairs NOTE Not available Not available Not available custodial goal of Other PT/OT subsequent NOTE Not available Not available Not available equipment operator intermodal yard goal of Gait and Stance: NOTE Not available Not available Not available equipment operator intermodal yard goal of Gait and Stance: NOTE Not available Not available Not available equipment operator intermodal yard goal of Pain NOTE Not available Not available Not available custodial goal of Pain NOTE Not available Not available Not available custodial goal of Strength (knee extension - quadriceps femoris with manual muscle testing) NOTE Not available Not available Not available equipment operator intermodal yard goal of Strength (knee flexion - hamstring/gas trocnemius with manual muscle testing) NOTE Not available Not available Not available Patient InstructionsNo instructions recorded. Reason for Referral None Reported. Results Created Date Observation Date Name Description Value Unit Range Abnormal Flag Note LastModifiedBy Organization Detail LastModifiedTime 08/20/20 24 08/20/2024 XR, knee, 3 view [email or web address]:/ [email or web address] ?Encry pted=s hAaTro YD8dLq bEUv6g %2BXZw aYqtaq 0bqfl% 2Fg9IQ a4ajBk vP9nXo QUaueC m3YtLR FvZlgJ JJ8mAn HZtai3 [id number] AC0Kqa XiAWKW kKiQtr MwF INTERFACE [facility] [address] [facility] [address], [place], [address], 08/20/2024 14:26:23 08/20/20 24 08/20/2024 XR, knee, 3 view [email or web address]:/ [email or web address] ?Encry pted=s hAaTro YD8dLq bEUv6g %2BXZw aYqtaq 0bqfl% 2Fg9IQ a4ajBk vP9nXo QUaueC m3YtLR FvZlgJ JJ8mAn HZtai3 2k1832 AC0Kqa XiAWKW kKiQtr MwF INTERFACE [facility] [address], [place], [address], 08/20/2024 14:26:25 09/10/20 24 09/10/2024 US, duple x, venou s, lower extre mity No observ ation record ed. [email or web address] [facility] [address], [place], [address], 09/11/2024 13:18:08 09/10/20 24 09/10/2024 US, duple x, venou s, lower extre mity No observ ation record ed. jkoe [facility] [address], [place], [address], 09/11/2024 13:18:09 09/16/20 24 09/16/2024 XR, knee, 3 view [email or web address]:/ [email or web address] ?Encry pted=s hAaTro YD8dLq bEUv6g %2BXZw aYqtaq 0bqfl% 2Fg9IQ a4ajBk vP9nXo QUaueC m3YtLR FvZlgJ JJ8mAn HZtai3 6p5648 AC0Kqb nuHVqa lKiQtr MwF INTERFACE [facility] [address], [place], [address], 09/16/2024 08:43:17 09/16/20 24 09/16/2024 XR, knee, 3 view [email or web address]:/ [email or web address] ?Encry pted=s hAaTro YD8dLq bEUv6g %2BXZw aYqtaq 0bqfl% 2Fg9IQ a4ajBk vP9nXo QUaueC m3YtLR FvZlgJ JJ8mAn HZtai3 1m1492 AC0Kqb nuHVqa lKiQtr MwF INTERFACE [facility] [address], [place], [address], 09/16/2024 08:43:19 Result Notes None recorded. Problems Name Problem SNOMED Code Status Onset Date Resolution Date Notes Provider Name and Address Organization Details Recorded Time No complaints 807447309 Active Status : 'A'; Not Available [facility] 4 09:16:26 Ankylosis of right knee joint 2574239932982 01 Active 2023 Justino Richter MD [address], [place], [address] , [facility] 4 15:12:33 Pain of right knee joint 4212238909101 00 Active 2023 KAYLIA L'HEUREUX null, [facility] 4 11:44:08 Swelling of bilateral lower limbs 535904890 Active 2023 KAYLIA L'HEUREUX null, [facility] 4 09:07:45 Osteoarthr itis of right knee joint 3723216773774 00 Active 2023 Justino Richter MD [address], [place], [address] , [facility] 4 18:01:41 Osteoarthr itis of left knee joint 0257266558790 09 Active 2023 Justino Richter MD [address], [place], [address] , [facility] 4 18:01:42 Problem Notes None recorded. Procedures Surgical History Date Name Laterality Status Provider Name and Address Organization Details Recorded Time 08/25/20 60415 Therapeutic Exercise (1:1) completed Freddie Adame PTA [address], [place], [address], [facility] 08/25/2024 08:44:38 08/25/20 79138: Hot or Cold Pack completed Freddie Adame PTA [address], [place], [address], [facility] 08/25/2024 08:44:38 08/25/20 53261: Manual therapy completed Freddie Adame PTA [address], [place], [address], [facility] 08/25/2024 14:29:03 08/19/20 64179 Therapeutic Exercise (1:1) completed Freddie Adame PTA [address], [place], [address], [facility] 08/18/2024 14:25:47 08/19/20 55336: Hot or Cold Pack completed Freddie Adame PTA [address], [place], [address], [facility] 08/18/2024 14:25:47 08/19/20 14796: Manual therapy completed Freddie Adame PTA [address], [place], [address], [facility] 08/18/2024 14:25:47 08/14/20 62198 Therapeutic Exercise (1:1) completed Freddie Adame PTA [address], [place], [address], [facility] 08/12/2024 16:54:25 08/14/20 69597: Hot or Cold Pack completed Freddie Adame PTA [address], [place], [address], [facility] 08/12/2024 16:54:25 08/14/20 97455: Manual therapy completed Freddie Adame PTA [address], [place], [address], [facility] 08/12/2024 16:54:25 08/12/20 20501 Therapeutic Exercise (1:1) completed Freddie Adame PTA [address], [place], [address], [facility] 08/12/2024 09:41:30 08/12/20 50801: Hot or Cold Pack completed Freddie Adame [employer] [address], [place], [address], [facility] 08/12/2024 09:41:30 08/12/20 77945: Manual therapy completed Freddie Adame, [employer] INSTALLER [address], [place], [address], [facility] 08/12/2024 09:41:30 08/06/20 33189 Therapeutic Exercise (1:1) completed Freddie Adame [employer]ST[employer] [address], [place], [address], [facility] 08/06/2024 14:46:53 08/06/20 68497: Hot or Cold Pack completed Freddie Adame, [employer] INST[employer]ER [address], [place], [address], [facility] 08/05/2024 18:30:29 08/06/20 15882: Manual therapy completed Freddie Adame, [employer] INST[employer]ER [address], [place], [address], [facility] 08/05/2024 18:30:29 08/04/20 19371 Therapeutic Exercise (1:1) completed Freddie Adame [employer] INST[employer]ER [address], [place], [address], [facility] 08/04/2024 09:44:54 08/04/20 38786: Hot or Cold Pack completed Freddie Adame, [employer] INST[employer]ER [address], [place], [address], [facility] 08/04/2024 09:44:54 08/04/20 14084: Manual therapy completed Freddie Adame, [employer] INSTALLER [address], [place], [address], [facility] 08/04/2024 09:44:54 07/31/20 31624 Therapeutic Exercise (1:1) completed Freddie Adame, BO[employer] INSTALLER [address], [place], [address], [facility] 07/31/2024 14:39:01 07/31/20 64402: Hot or Cold Pack completed Freddie Adame, BO[employer] INSTALLER [address], [place], [address], [facility] 07/30/2024 10:16:09 07/31/20 25346: Manual therapy completed Freddie Adame PTA [address] [facility], [place], [address], [facility] 07/30/2024 10:16:09 07/29/20 24 63469 Therapeutic Exercise (1:1) completed Judd Hodgson DPT [address], [place], [address], [facility] 07/29/2024 18:12:01 07/29/20 43887: Hot or Cold Pack completed Judd Hodgson DPT [address] [facility], [place], [address], [facility] 07/29/2024 18:12:13 07/29/20 50457: Manual therapy completed Judd Hodgson DPT [address], [place], [address], [facility] 07/29/2024 18:12:06 07/24/20 82195 Therapeutic Exercise (1:1) completed Judd Hodgson DPT [address] [facility], [place], [address], [facility] 07/23/2024 14:29:24 07/24/20 24 80865: Low complexity PT Eval completed Judd Hodgson DPT [address] [facility], [place], [address], [facility] 07/23/2024 14:29:19 02/01/20 Zilretta Knee Injection, Bilateral completed Justino Richter MD [address], [place], [address], [facility] 02/01/2024 18:01:54 Imaging Results None recorded. Procedure [...] Status Never Smoker Kathleen solorio [place] - [place] [facility] 07/24/2024 14:15:28 Do You Or Have [...] Diagnosis/Indication Diagnosis SNOMED-CT Code Diagnosis ICD10 Code [id number] [facility] [address] [place] [address] 07/29/2024 17:07:06 07/29/2024 18:46:56 History of total knee arthroplasty 6673366465 105 Z96.875 [id number] [facility] [address] [place] [address] 07/31/2024 13:36:22 07/31/2024 15:38:09 History of total knee arthroplasty 2548024946 105 Z96.579 [id number] [facility] [address] [place] [address] 08/04/2024 13:38:13 08/04/2024 15:48:53 History of total knee arthroplasty 3589647784 105 Z96.989 [id number] Judd Hodgson DPT [facility] [address] [place] [address] 08/06/2024 13:43:11 08/06/2024 14:47:31 History of total knee arthroplasty 8489986003 105 Z96.341 [id number] BHARGAV Fox [address] [place] [address] 08/07/2024 12:52:14 08/20/2024 12:07:22 History of right total knee replacement 9593119376 288407 Z96.176 [id number] Judd Hodgson DPT [facility] [address] [place] [address] 08/12/2024 13:06:55 08/12/2024 14:57:39 History of total knee arthroplasty 6574762364 105 Z96.069 [id number] Judd Hodgson DPT [facility] [address] [place] [address] 08/14/2024 13:37:55 08/14/2024 14:39:00 History of total knee arthroplasty 0046526977 105 Z96.892 [id number] Judd Hodgson DPT [facility] [address] [place] [address] 08/19/2024 13:39:45 08/19/2024 14:44:19 History of total knee arthroplasty 1111105005 105 Z96.138 [id number] MD Michelle Portillo [address] [place] [address] 08/20/2024 13:30:39 09/08/2024 12:12:38 History of right total knee replacement 0117338640 489686 Z96.651 Ankylosis of right knee joint 2675773144 00073 M24.184 [id number] Judd Hodgson DPT [facility] [address] [place] [address] 08/25/2024 13:38:40 08/25/2024 14:30:33 History of total knee arthroplasty 1079658216 105 Z96.585 [id number] [facility] [address] [place] [address] 08/27/2024 13:22:31 08/27/2024 14:42:09 History of total knee arthroplasty 0222180400 105 Z96.651 Health Concerns Section Related Observation LastModified by Organization Detai ls LastModified Time None Recorded Concern Status LastModified by Organization Details LastModified Time None Recorded Payers Encounter Date Sequence Insurance Name Policy Number Policy Campos Covered Member ID Campos Member ID Guarantor Name 08/27/2024 1 [facility] [employer] - TOGETHER (MEDICAID HMO) [id number] Linda Cleveland [id number] Linda Cleveland Notes Date Note Type Note Provider Name and Address Organization Details Recorded Time 08/27/2024 text/html See Progress Note Judd Hodgson DPT [address], [place], [address], [facility] [place] [facility] 08/27/2024 15:44:57 OBGyn Episode No OBEpisode recorded.
--- OUTSIDE RECORDS SUMMARY | 2024-09-22 14:33 | XMS_ITS | Continuity of Care Document ---
Author Organization [facility] 2nd floor Address [address] [place] [address] Care Team Providers Care Audience Coordinator Name Role Phone GAGE ISIDRO Primary Care Provider Assessment Encounter Date Assessment Date Assessment LastModified by Organization Details LastModified Time 08/20/2024 08/20/2024 Imaging: Imaging ordered, independently reviewed and interpreted by Justino Richter MD reveals the following findings: XR Knee Right Knee: Three views of the knee were obtained including AP, sunrise, and lateral views. Status post total knee arthroplasty. No evidence of complication, well fixed, well aligned. There is no evidence of loosening or migration. There is no evidence of osteolysis. No fractures are present. Alignment: Neutral Impression: Status post right total knee arthroplasty, 6 weeks out, with arthrofibrosis Plan: The patient is doing well, continue activities as tolerated. As above. We will plan to perform a manipulation under anesthesia on September 01. [email or web address] Not available 08/20/2024 15:12:35 Plan of Treatment Reminders Order Date Submit Date Provider Last Modified By Organization Details Last Modified Time Details Appointments PT FOLLOW- UP 2023 12:00P M Emilia Wood, HEEL SEAT POUNDER Not available Not available Not available PT FOLLOW- UP 2024 01:30P M Bethany Muse HEEL SEAT POUNDER Not available Not available Not available PT FOLLOW- UP 2024 11:00A M Bethany Muse HEEL SEAT POUNDER Not available Not available Not available PT FOLLOW- UP 2024 10:00A M Judd Hodgson DPT Not available Not available Not available PT FOLLOW- UP 2024 12:30P M Freddie Adame, SHANTAL Not available Not available Not available PT FOLLOW- UP 2024 11:00A M Freddie Adame, HEEL SEAT POUNDER Not available Not available Not available POST OP 10 2024 01:40P M Justino Richter MD Not available Not available Not available Lab None recorde d. Referral physica l therapi st referra l - ROM, Strengt hening, Conditi oning, Gait Trainin g Etc.Phy sical therapy to begin after surgery , in an outpati ent site. Please bring this script and media marketing specialist d protoco l with you to your physica l therapy appoint ment 2023 024 [facility], [address], [place], [address], 09/08/2024 12:12:38 Procedures None recorde d. Surgeries None recorde d. Imaging XR, knee, 3 view - 203 3v RTKR AB protoco l 2023 024 [facility], [address], [address], [place], [address], 09/08/2024 12:12:38 Medication Orders None recorde d. Patient TargetsNo targets recorded. Patient InstructionsNo instructions recorded. Reason for Referral Physical Therapist Referral for History of right total knee replacement ROM, Strengthening, Conditioning, Gait Training Etc.Physical therapy to begin after surgery, in an outpatient site. Please bring this script and attached protocol with you to your physical therapy appointment Referring Physician: Justino Richter, Orthopedic Surgery, [id number] Encounter Date: 08/20/2024 Results Created Date Observation Date Name Description Value Unit Range Abnormal Flag Note LastModifiedBy Organization Detail LastModifiedTime 07/24/20 24 07/24/2024 XR, knee, 3 view [email or web address]:/ [email or web address] ?Encry pted=s hAaTro YD8dLq bEUv6g %2BXZw aYqtaq 0bqfl% 2Fg9IQ a4ajBk vP9nXo QUaueC m3YtLR FvZlgJ JJ8mAn HZtai3 7u9258 AC0Kqa HmEUKq vKiQtr MwF INTERFACE [facility] [address], [place], [address], 07/24/2024 14:45:59 07/24/20 24 07/24/2024 XR, knee, 3 view [email or web address]:/ [email or web address] ?Encry pted=s hAaTro YD8dLq bEUv6g %2BXZw aYqtaq 0bqfl% 2Fg9IQ a4ajBk vP9nXo QUaueC m3YtLR FvZlJ [facility] HZtai3 4d3062 AC0Kqa HmEUKq vKiQtr MwF INTERFACE [facility] [address] [facility] [address], [place], [address], 07/24/2024 14:46:01 08/20/20 24 08/20/2024 XR, knee, 3 view [email or web address]:/ [email or web address] ?Encry pted=s hAaTro YD8dLq bEUv6g %2BXZw aYqtaq 0bqfl% 2Fg9IQ a4ajBk vP9nXo QUaueC m3YtLR FvZl[address] Garcia Streettai3 3f7296 AC0Kqa XiAWKW kKiQtr MwF INTERFACE [facility] [address] [facility] [address], [place], [address], 08/20/2024 14:26:23 08/20/20 24 08/20/2024 XR, knee, 3 view [email or web address]:/ [email or web address] ?Encry pted=s hAaTro YD8dLq bEUv6g %2BXZw aYqtaq 0bqfl% 2Fg9IQ a4ajBk vP9nXo QUaueC m3YtLR FvZlgJ JJ8mAn HZtai3 4a5738 AC0Kqa XiAWKW kKiQtr MwF INTERFACE [facility] [address] [place] [address] [place], [address], 08/20/2024 14:26:25 09/10/20 24 09/10/2024 US, duple x, venou s, lower extre mity No observ ation record ed. [email or web address] [facility] [address], [place], [address], 09/11/2024 13:18:08 09/10/20 24 09/10/2024 US, duple x, venou s, lower extre mity No observ ation record ed. [email or web address] [facility] [address], [place], [address], 09/11/2024 13:18:09 09/16/20 24 09/16/2024 XR, knee, 3 view [email or web address]:/ [email or web address] ?Encry pted=s hAaTro YD8dLq bEUv6g %2BXZw aYqtaq 0bqfl% 2Fg9IQ a4ajBk vP9nXo QUaueC m3YtLR FvZlgJ JJ8mAn HZtai3 4m6380 AC0Kqb nuHVqa lKiQtr MwF INTERFACE [facility] [address], [place], [address], 09/16/2024 08:43:17 09/16/20 24 09/16/2024 XR, knee, 3 view [email or web address]:/ [email or web address] ?Encry pted=s hAaTro YD8dLq bEUv6g %2BXZw aYqtaq 0bqfl% 2Fg9IQ a4ajBk vP9nXo QUaueC m3YtLR FvZlgJ JJ8mAn HZtai3 8v9328 AC0Kqb nuHVqa lKiQtr MwF INTERFACE [facility] [address], [place], [address], 09/16/2024 08:43:19 Result Notes None recorded. Problems Name Problem SNOMED Code Status Onset Date Resolution Date Notes Provider Name and Address Organization Details Recorded Time No complaints 549062615 Active Status : 'A'; Not Available [facility] 4 09:16:26 Ankylosis of right knee joint 2171907952402 01 Active 2023 Justino Richter MD [address], [place], [address] , [facility] 4 15:12:33 Pain of right knee joint 1981481027329 00 Active 2023 KAYLIA L'HEUREUX null, [facility] 4 11:44:08 Swelling of bilateral lower limbs 998803676 Active 2023 KAYLIA L'HEUREUX null, [facility] 4 09:07:45 Osteoarthr itis of right knee joint 5414103423531 00 Active 2023 Justino Richter MD [address], [place], [address] , [facility] 4 18:01:41 Osteoarthr itis of left knee joint 1941185108082 09 Active 2023 Justino Richter MD [address], [place], [address] , [facility] 4 18:01:42 Problem Notes None recorded. Procedures Surgical History Date Name Laterality Status Provider Name and Address Organization Details Recorded Time 08/25/20 76124 Therapeutic Exercise (1:1) completed Freddie Adame PTA [address], [place], [address], [facility] 08/25/2024 08:44:38 08/25/20 13209: Hot or Cold Pack completed Freddie Adame HEEL SEAT POUNDER [address], [place], [address], [facility] 08/25/2024 08:44:38 08/25/20 28278: Manual therapy completed Freddie Adame, HEEL SEAT POUNDER [address], [place], [address], [facility] 08/25/2024 14:29:03 08/19/20 62815 Therapeutic Exercise (1:1) completed Freddie Adaem PTA [address], [place], [address], [facility] 08/18/2024 14:25:47 08/19/20 34782: Hot or Cold Pack completed Freddie Adame HEEL SEAT POUNDER [address], [place], [address], [facility] 08/18/2024 14:25:47 08/19/20 20005: Manual therapy completed Freddie Adame PTA [address], [place], [address], [facility] 08/18/2024 14:25:47 08/14/20 67002 Therapeutic Exercise (1:1) completed Freddie Adame PTA [address], [place], [address], [facility] 08/12/2024 16:54:25 08/14/20 23448: Hot or Cold Pack completed Freddie Adame PTA [address], [place], [address], [facility] 08/12/2024 16:54:25 08/14/20 39512: Manual therapy completed Freddie Adame PTA [address], [place], [address], [facility] 08/12/2024 16:54:25 08/12/20 17756 Therapeutic Exercise (1:1) completed Freddie Adame HEEL SEAT POUNDER [address], [place], [address], [facility] 08/12/2024 09:41:30 08/12/20 20219: Hot or Cold Pack completed Freddie Adame HEEL SEAT POUNDER [address], [place], [address], [facility] 08/12/2024 09:41:30 08/12/20 50264: Manual therapy completed Freddie Adame, HEEL SEAT POUNDER [address], [place], [address], [facility] 08/12/2024 09:41:30 08/06/20 59655 Therapeutic Exercise (1:1) completed Freddie Adame HEEL SEAT POUNDER [address], [place], [address], [facility] 08/06/2024 14:46:53 08/06/20 32662: Hot or Cold Pack completed Freddie Adame, HEEL SEAT POUNDER [address], [place], [address], [facility] 08/05/2024 18:30:29 08/06/20 00513: Manual therapy completed Freddie Adame HEEL SEAT POUNDER [address], [place], [address], [facility] 08/05/2024 18:30:29 08/04/20 53013 Therapeutic Exercise (1:1) completed Freddie Adame HEEL SEAT POUNDER [address], [place], [address], [facility] 08/04/2024 09:44:54 08/04/20 55802: Hot or Cold Pack completed Freddie Adame HEEL SEAT POUNDER [address], [place], [address], [facility] 08/04/2024 09:44:54 08/04/20 92511: Manual therapy completed Freddie Adame, HEEL SEAT POUNDER [address], [place], [address], [facility] 08/04/2024 09:44:54 07/31/20 15559 Therapeutic Exercise (1:1) completed Freddie Adame, HEEL SEAT POUNDER [address], [place], [address], [facility] 07/31/2024 14:39:01 07/31/20 10092: Hot or Cold Pack completed Freddie Adame, HEEL SEAT POUNDER [address], [place], [address], [facility] 07/30/2024 10:16:09 07/31/20 60247: Manual therapy completed Freddie Adame PTA [address], [place], [address], [facility] 07/30/2024 10:16:09 07/29/20 24 96904 Therapeutic Exercise (1:1) completed Judd Hodgson DPT [address], [place], [address], [facility] 07/29/2024 18:12:01 07/29/20 32211: Hot or Cold Pack completed Judd Hodgson DPT [address] [facility], [place], [address], [facility] 07/29/2024 18:12:13 07/29/20 07203: Manual therapy completed Judd Hodgson DPT [address] [facility], [place], [address], [facility] 07/29/2024 18:12:06 07/24/20 24 17823 Therapeutic Exercise (1:1) completed Judd Hodgson DPT [address] [facility], [place], [address], [facility] 07/23/2024 14:29:24 07/24/20 24 34410: Low complexity PT Eval completed Judd Hodgson DPT [address] [facility], [place], [address], [facility] 07/23/2024 14:29:19 02/01/20 Zilretta Knee Injection, Bilateral completed Justino Richter MD [address], [place], [address], [facility] 02/01/2024 18:01:54 Imaging [...] Not Available Not Available Not Available Vitals Date Recorded Body height Body mass index (BMI) Body weight Provider Name and Address Organization Details Last Updated DateTime 08/20/2024 144.78 cm 40.7 kg/m2 01400.37 g Jessica Silver [facility] [address] 08/20/2024 14:06:24 Social History Question Answer Notes LastModified by Organizat ion Details LastModified Time Tobacco Smoking Status Never [facility]oker [facility] 07/24/2024 14:15:28 Do You Or Have [...] Diagnosis/Indication Diagnosis SNOMED-CT Code Diagnosis ICD10 Code [id number] O[facility] [address] [place] [address] 07/24/2024 11:11:22 07/24/2024 12:28:34 History of total knee arthroplasty 8502120881 105 Z96.044 [id number] BHARGAV [facility] 2nd floor [address] [place] [address] 07/24/2024 13:49:37 08/15/2024 09:20:00 Postoperative visit 026199322 Z48.89 [id number] Judd Hodgson DPT [facility] [address] [place] [address] 07/29/2024 17:07:06 07/29/2024 18:46:56 History of total knee arthroplasty 4106904085 105 Z96.114 [id number] Judd Hodgson DPT [facility] [address] [place] [address] 07/31/2024 13:36:22 07/31/2024 15:38:09 History of total knee arthroplasty 1696450293 105 Z96.836 [id number] Judd Hodgson DPT [facility] [address] [place] [address] 08/04/2024 13:38:13 08/04/2024 15:48:53 History of total knee arthroplasty 3378348020 105 Z96.902 [id number] Judd Hodgson DPT [facility] [address] [place] [address] 08/06/2024 13:43:11 08/06/2024 14:47:31 History of total knee arthroplasty 0730809248 105 Z96.103 [id number] Epifanio Arzate PA-C [facility] 2nd floor [address] [place] [address] 08/07/2024 12:52:14 08/20/2024 12:07:22 History of right total knee replacement 7695327334 969316 Z96.768 [id number] Judd Hodgson DPT [facility] [address] [place] [address] 08/12/2024 13:06:55 08/12/2024 14:57:39 History of total knee arthroplasty 8057989232 105 Z96.861 [id number] Judd Hodgson DPT [facility] [address] [place] [address] 08/14/2024 13:37:55 08/14/2024 14:39:00 History of total knee arthroplasty 0973708896 105 Z96.917 [id number] Judd Hodgson, OSMAN [facility] [address] [facility] [place] [address] 08/19/2024 13:39:45 08/19/2024 14:44:19 History of total knee arthroplasty 8106857334 105 Z96.258 [id number] MD Michelle Portillo 2nd floor [address] [place] [address] 08/20/2024 13:30:39 09/08/2024 12:12:38 History of right total knee replacement 7468612724 836588 Z96.651 Ankylosis of right knee joint 4770443221 73487 M24.661 Health Concerns Section Related Observation LastModified by Organization Detai ls LastModified Time None Recorded Concern Status LastModified by Organization Details LastModified Time None Recorded Payers Encounter Date Sequence Insurance Name Policy Number Policy Campos Covered Member ID Campos Member ID Guarantor Name 08/20/2024 1 [employer] - TO[employer] (MEDICAID HMO) [id number] Linda Alejandrao [id number] Linda Cristofer Notes Date Note Type Note Provider Name and Address Organization Details Recorded Time 08/20/2024 text/html History of prese nt illness:Linda follows up today and is now 6 weeks out from right total knee arthroplasty. She has been struggling with physical therapy and has gone on to develop a fairly severe case of arthrofibrosis with severe restriction in range of motion of her right knee. She is in need of a manipulation under anesthesia, we originally discussed performing this at the start of next week but she is unable to attend that because she is traveling with her to [place] for chemotherapy. We decided to perform her manipulation on September 01 in order to allow for a full 5 days a week of physical therapy following the manipulationPast family, medical, social history and review of systems has been reviewed and updated, and is located in the patient? s chart. Justino Richter MD [address], [place], [address], [facility] 08/20/2024 15:12:45 OBGyn Episode No OBEpisode recorded.
--- OUTSIDE RECORDS SUMMARY | 2024-09-22 14:33 | XMS_ITS | Continuity of Care Document ---
Author Organization [facility] [address] [place] [address] Care Team Providers Care Breaker Engineer Name Role Phone GAGE ISIDRO Primary Care Provider Assessment Encounter Date Assessment Date Assessment LastModified by Organization Details LastModified Time 08/19/2024 08/19/2024 Assessment: Pt is extremely still and have not been able to gain anymore motion. Pt have very low pain jese with passive bending. Pt working hard at home but unable to progress d/t pain. Plan: Continue POC. Progress to tolerance [id number] Not available 08/19/2024 14:42:05 Plan of Treatment Reminders Order Date Submit Date Provider Last Modified By Organization Details Last Modified Time Details Appointments PT FOLLOW -UP 024 12:00PM Emilia Wood RESIDENTIAL SERVICE TECHNICIAN Not available Not available Not available PT FOLLOW -UP 025 01:30PM Bethany Muse RESIDENTIAL SERVICE TECHNICIAN Not available Not available Not available PT FOLLOW -UP 025 11:00AM Bethany Muse RESIDENTIAL SERVICE TECHNICIAN Not available Not available Not available PT FOLLOW -UP 025 10:00AM Judd Hodgson DPT Not available Not available Not available PT FOLLOW -UP 025 12:30PM Freddie Adame PTA Not available Not available Not available PT FOLLOW -UP 025 11:00AM Freddie Adame RESIDENTIAL SERVICE TECHNICIAN Not available Not available Not available [...] Abnormal Flag Note LastModifiedBy Organization Detail LastModifiedTime 07/24/2007/24/2024 XR, knee, 3 view [email or web address]:/ [email or web address] ?Encry pted=s hAaTro YD8dLq bEUv6g %2BXZw aYqtaq 0bqfl% 2Fg9IQ a4ajBk vP9nXo QUaueC m3YtLR FvZlgJ JJ8mAn HZtai3 9x4003 AC0Kqa HmEUKq vKiQtr MwF INTERFACE [facility] [address] [facility] [address], [place], [address], 07/24/2024 14:45:59 07/24/20 24 07/24/2024 XR, knee, 3 view [email or web address] ?Encry pted=s hAaTro YD8dLq bEUv6g %2BXZw aYqtaq 0bqfl% 2Fg9IQ a4ajBk vP9nXo QUaueC m3YtLR FvZlgJ JJ8mAn HZtai3 7g8911 AC0Kqa HmEUKq vKiQtr MwF INTERFACE [facility] [address] [facility] [address], [place], [address], 07/24/2024 14:46:01 08/20/20 24 08/20/2024 XR, knee, 3 view [email or web address]:/ [email or web address] ?Encry pted=s hAaTro YD8dLq bEUv6g %2BXZw aYqtaq 0bqfl% 2Fg9IQ a4ajBk vP9nXo QUaueC m3YtLR FvZlgJ JJ8mAn HZtai3 4c8911 AC0Kqa XiAWKW kKiQtr MwF INTERFACE [facility] [address], [place], [address], 08/20/2024 14:26:23 08/20/20 24 08/20/2024 XR, knee, 3 view [email or web address]:/ [email or web address] ?Encry pted=s hAaTro YD8dLq bEUv6g %2BXZw aYqtaq 0bqfl% 2Fg9IQ a4ajBk vP9nXo QUaueC m3YtLR FvZlgJ JJ8mAn HZtai3 7w7652 AC0Kqa XiAWKW kKiQtr MwF INTERFACE [facility] [address], [place], [address], 08/20/2024 14:26:25 09/10/20 24 09/10/2024 US, duple x, venou s, lower extre mity No observ ation record ed. [facility] [address] [address], [place], [address], 09/11/2024 13:18:08 09/10/20 24 09/10/2024 US, duple x, venou s, lower extre mity No observ ation record ed. [facility] [address] [address], [place], [address], 09/11/2024 13:18:09 09/16/20 24 09/16/2024 XR, knee, 3 view [email or web address]:/ [email or web address] ?Encry pted=s hAaTro YD8dLq bEUv6g %2BXZw aYqtaq 0bqfl% 2Fg9IQ a4ajBk vP9nXo QUaueC m3YtLR FvZlgJ JJ8mAn HZtai3 3m7995 AC0Kqb nuHVqa lKiQtr MwF INTERFACE [facility] [address], [place], [address], 09/16/2024 08:43:17 09/16/20 09/16/2024 XR, knee, 3 view [email or web address]:/ [email or web address] ?Encry pted=s hAGeoffreyo YD8dLq bEUv6g %2BXZw aYqtaq 0bqfl% 2Fg9IQ a4ajBk vP9nXo QUaueC m3YtLR FvZlgJ JJ8mAn HZtai3 8f2118 AC0Kqb nuHVqa lKiQtr MwF INTERFACE [facility] [address], [place], [address], 09/16/2024 08:43:19 Result Notes None recorded. Problems Name Problem SNOMED Code Status Onset Date Resolution Date Notes Provider Name and Address Organization Details Recorded Time No complaints 062625690 Active Status : 'A'; Not Available Formerly [facility], [facility]–1983 4 09:16:26 Ankylosis of right knee joint 6064128646333 01 Active 2023 Justino Richter MD [address], [place], [address] , [facility] 4 15:12:33 Pain of right knee joint 1199320423194 00 Active 2023 KAYLIA L'HEUREUX null, [facility] 4 11:44:08 Swelling of bilateral lower limbs 125668161 Active 2023 KAYLIA L'HEUREUX null, [facility] 4 09:07:45 Osteoarthr itis of right knee joint 1184980832053 00 Active 2023 Justino Richter MD [address], [place], [address] , [facility] 4 18:01:41 Osteoarthr itis of left knee joint 7583600335029 09 Active 2023 Justino Richter MD [address], [place], [address] , [facility] 4 18:01:42 Problem Notes None recorded. Procedures Surgical History Date Name Laterality Status Provider Name and Address Organization Details Recorded Time 08/25/20 99527 Therapeutic Exercise (1:1) completed Freddie Adame RESIDENTIAL SERVICE TECHNICIAN [address], [place], [address], [facility] 08/25/2024 08:44:38 08/25/20 19447: Hot or Cold Pack completed Freddie Adame RESIDENTIAL SERVICE TECHNICIAN [address], [place], [address], [facility] 08/25/2024 08:44:38 08/25/20 79171: Manual therapy completed Freddie Adame RESIDENTIAL SERVICE TECHNICIAN [address], [place], [address], [facility] 08/25/2024 14:29:03 08/19/20 30068 Therapeutic Exercise (1:1) completed Freddie Adame RESIDENTIAL SERVICE TECHNICIAN [address], [place], [address], [facility] 08/18/2024 14:25:47 08/19/20 39383: Hot or Cold Pack completed Freddie Adame RESIDENTIAL SERVICE TECHNICIAN [address], [place], [address], [facility] 08/18/2024 14:25:47 08/19/20 90478: Manual therapy completed Freddie Adame RESIDENTIAL SERVICE TECHNICIAN [address], [place], [address], [facility] 08/18/2024 14:25:47 08/14/20 18151 Therapeutic Exercise (1:1) completed Freddie Adame RESIDENTIAL SERVICE TECHNICIAN [address], [place], [address], [facility] 08/12/2024 16:54:25 08/14/20 52012: Hot or Cold Pack completed Freddie Adame, RESIDENTIAL SERVICE TECHNICIAN [address], [place], [address], [facility] 08/12/2024 16:54:25 08/14/20 68897: Manual therapy completed Freddie Adame, RESIDENTIAL SERVICE TECHNICIAN [address], [place], [address], [facility] 08/12/2024 16:54:25 08/12/20 85004 Therapeutic Exercise (1:1) completed Freddie Adame RESIDENTIAL SERVICE TECHNICIAN [address], [place], [address], [facility] 08/12/2024 09:41:30 08/12/20 79912: Hot or Cold Pack completed Freddie Adame RESIDENTIAL SERVICE TECHNICIAN [address], [place], [address], [facility] 08/12/2024 09:41:30 08/12/20 98183: Manual therapy completed Freddie Adame RESIDENTIAL SERVICE TECHNICIAN [address], [place], [address], [facility] 08/12/2024 09:41:30 08/06/20 94719 Therapeutic Exercise (1:1) completed Freddie Adame PTA [address], [place], [address], [facility] 08/06/2024 14:46:53 08/06/20 36059: Hot or Cold Pack completed Freddie Adame PTA [address], [place], [address], [facility] 08/05/2024 18:30:29 08/06/20 53423: Manual therapy completed Freddie Adame PTA [address], [place], [address], [facility] 08/05/2024 18:30:29 08/04/20 26518 Therapeutic Exercise (1:1) completed Freddie Adame RESIDENTIAL SERVICE TECHNICIAN [address], [place], [address], [facility] 08/04/2024 09:44:54 08/04/20 64593: Hot or Cold Pack completed Freddie Adame RESIDENTIAL SERVICE TECHNICIAN [address], [place], [address], [facility] 08/04/2024 09:44:54 08/04/20 17479: Manual therapy completed Freddie Adame RESIDENTIAL SERVICE TECHNICIAN [address], [place], [address], [facility] 08/04/2024 09:44:54 07/31/20 31998 Therapeutic Exercise (1:1) completed Freddie Adame RESIDENTIAL SERVICE TECHNICIAN [address], [place], [address], [facility] 07/31/2024 14:39:01 07/31/20 65135: Hot or Cold Pack completed Freddie Adame RESIDENTIAL SERVICE TECHNICIAN [address], [place], [address], [facility] 07/30/2024 10:16:09 07/31/20 12217: Manual therapy completed Freddie Adame PTA [address], [place], [address], [facility] 07/30/2024 10:16:09 07/29/20 32155 Therapeutic Exercise (1:1) completed TRUPTI PowellT [address], [place], [address], [facility] 07/29/2024 18:12:01 07/29/20 68161: Hot or Cold Pack completed Judd Hodgson DPT [address], [place], [address], [facility] 07/29/2024 18:12:13 07/29/20 37293: Manual therapy completed Judd Hodgson DPT [address], [place], [address], [facility] 07/29/2024 18:12:06 07/24/20 51585 Therapeutic Exercise (1:1) completed Judd Hodgson DPT [address], [place], [address], [facility] 07/23/2024 14:29:24 07/24/20 54144: Low complexity PT Eval completed Judd Hodgson, DPT [address], [place], [address], [facility] 07/23/2024 14:29:19 02/01/20 24 Zilretta Knee Injection, Bilateral completed Justino Richter MD [address], [place], [address], [facility] 02/01/2024 18:01:54 Imaging Results [...] Status Never Smoker Kathleen solorio [place] - [facility] 07/24/2024 14:15:28 Do You Or Have [...] Diagnosis/Indication Diagnosis SNOMED-CT Code Diagnosis ICD10 Code [id number] [facility] [address] [place] [address] 07/24/2024 11:11:22 07/24/2024 12:28:34 History of total knee arthroplasty 1072072965 105 Z96.356 [id number] BHARGAV Fox [address] [place] [address] 07/24/2024 13:49:37 08/15/2024 09:20:00 Postoperative visit 427832098 Z48.89 [id number] TRUPTI PowellT [facility] [address] [address] 07/29/2024 17:07:06 07/29/2024 18:46:56 History of total knee arthroplasty 9660962315 105 Z96.140 [id number] Judd Hodgson DPT [facility] [address] [place] [address] 07/31/2024 13:36:22 07/31/2024 15:38:09 History of total knee arthroplasty 5093106163 105 Z96.082 [id number] Judd Hodgson DPT [facility] [address] [address] 08/04/2024 13:38:13 08/04/2024 15:48:53 History of total knee arthroplasty 1887586240 105 Z96.562 [id number] Judd Hodgson DPT [facility] [address] [place] [address] 08/06/2024 13:43:11 08/06/2024 14:47:31 History of total knee arthroplasty 5810408558 105 Z96.128 [id number] BHARGAV Fox 2[address] floor [address] [place] [address] 08/07/2024 12:52:14 08/20/2024 12:07:22 History of right total knee replacement 1814490079 264933 Z96.132 [id number] Judd Hodgson DPT [facility] [address] [place] [address] 08/12/2024 13:06:55 08/12/2024 14:57:39 History of total knee arthroplasty 1098977667 105 Z96.956 [id number] [facility] [address] [place] [address] 08/14/2024 13:37:55 08/14/2024 14:39:00 History of total knee arthroplasty 0063138103 105 Z96.941 [id number] [facility] [address] [place] [address] 08/19/2024 13:39:45 08/19/2024 14:44:19 History of total knee arthroplasty 6103991757 105 Z96.651 Health Concerns Section Related Observation LastModified by Organization Detai ls LastModified Time None Recorded Concern Status LastModified by Organization Details LastModified Time None Recorded Payers Encounter Date Sequence Insurance Name Policy Number Policy Campos Covered Member ID Campos Member ID Guarantor Name 08/19/2024 1 [facility] [employer] - TOGETHER (MEDICAID HMO) [id number] Linda Cleveland [id number] Linda Cleveland Notes Date Note Type Note Provider Name and Address Organization Details Recorded Time 08/19/2024 text/html Pt states 5/10 knee pain. I am doing my bends by sitting in a chair and pushing Freddie Adame, RESIDENTIAL SERVICE TECHNICIAN [address], [place], [address], [facility] 08/19/2024 14:44:05 OBGyn Episode No OBEpisode recorded.
--- OUTSIDE RECORDS SUMMARY | 2024-09-22 14:33 | XMS_ITS | Continuity of Care Document ---
Author Organization [facility] [address] [place] [address] Care Team Providers Care Laminated Plastics Assembler And Gluer Name Role Phone GAGE ISIDRO Primary Care Provider Assessment Encounter Date Assessment Date Assessment LastModified by Organization Details LastModified Time 07/31/2024 07/31/2024 Assessment: Patient cont to have Mod post surgical swelling in knee along with pain and stiffness. Pt able to initiate arom LE exercise to help facilitate muscle recruitment. Pt have low pain jese with passive bending. Plan: Continue POC. Progress to tolerance [id number] Not available 07/31/2024 14:43:52 Plan of Treatment Reminders Order Date Submit Date Provider Last Modified By Organization Details Last Modified Time Details Appointments PT FOLLOW -UP 024 12:00PM Emilia Wood DATA DESIGNER Not available Not available Not available PT FOLLOW -UP 025 01:30PM Bethany Muse DATA DESIGNER Not available Not available Not available PT FOLLOW -UP 025 11:00AM Bethany Muse DATA DESIGNER Not available Not available Not available PT FOLLOW -UP 025 10:00AM Judd Hodgson DPT Not available Not available Not available PT FOLLOW -UP 025 12:30PM Freddie Adame PTA Not available Not available Not available PT FOLLOW -UP 025 11:00AM Freddie Adame DATA DESIGNER Not available Not available Not available POST [...] Abnormal Flag Note LastModifiedBy Organization Detail LastModifiedTime 07/01/2007/01/2024 XR, bone lengt h [email or web address]:/ [email or web address] ?Encry pted=s hAaTro YD8dLq bEUv6g %2BXZw aYqtaq 0bqfl% 2Fg9IQ a4ajBk vP9nXo QUaueC m3YtLR FvZlgJ JJ8mAn HZtai3 8o2424 AC0Kqa 36NVqu nKiQtr MwF INTERFACE [facility] [address], [place], [address], 07/01/2024 10:07:32 07/01/20 24 07/01/2024 XR, bone evaristo h [email or web address]:/ [email or web address] ?Encry pted=s hAaTro YD8dLq bEUv6g %2BXZw aYqtaq 0bqfl% 2Fg9IQ a4ajBk vP9nXo QUaueC m3YtLR FvZlgJ JJ8mAn HZtai3 4n4346 AC0Kqa 36NVqu nKiQtr MwF INTERFACE [facility] [address] [facility] [address], [place], [address], 07/01/2024 10:07:34 07/24/20 24 07/24/2024 XR, knee, 3 view [email or web address]:/ [email or web address] ?Encry pted=s hAaTro YD8dLq bEUv6g %2BXZw aYqtaq 0bqfl% 2Fg9IQ a4ajBk vP9nXo QUaueC m3YtLR FvZlgJ JJ8mAn HZtai3 3w0144 AC0Kqa HmEUKq vKiQtr MwF INTERFACE [facility] [address] [facility], [place], [address], 07/24/2024 14:45:59 07/24/20 24 07/24/2024 XR, knee, 3 view [email or web address]:/ [email or web address] ?Encry pted=s hAaTro YD8dLq bEUv6g %2BXZw aYqtaq 0bqfl% 2Fg9IQ a4ajBk vP9nXo QUaueC m3YtLR FvZlgJ JJ8mAn HZtai3 7t6104 AC0Kqa HmEUKq vKiQtr MwF INTERFACE [facility] [address], [place], [address], 07/24/2024 14:46:01 08/20/20 24 08/20/2024 XR, knee, 3 view [email or web address]:/ [email or web address] ?Encry pted=s hAaTro YD8dLq bEUv6g %2BXZw aYqtaq 0bqfl% 2Fg9IQ a4ajBk vP9nXo QUaueC m3YtLR FvZlgJ JJ8mAn HZtai3 9b9701 AC0Kqa XiAWKW kKiQtr MwF INTERFACE [facility] [address], [place], [address], 08/20/2024 14:26:23 08/20/20 24 08/20/2024 XR, knee, 3 view [email or web address]:/ [email or web address] ?Encry pted=s hAaTro YD8dLq bEUv6g %2BXZw aYqtaq 0bqfl% 2Fg9IQ a4ajBk vP9nXo QUaueC m3YtLR FvZlgJ JJ8mAn HZtai3 5d7373 AC0Kqa XiAWKW kKiQtr MwF INTERFACE [facility] [address], [place], [address], 08/20/2024 14:26:25 09/10/20 24 09/10/2024 US, duple x, venou s, lower extre mity No observ [facility]ion [facility] [address] [address], [place], [address], 09/11/2024 13:18:08 09/10/20 24 09/10/2024 US, duple x, venou s, lower extre mity No observ ation [facility]. [facility] [address] [facility] [address], [place], [address], 09/11/2024 13:18:09 09/16/20 24 09/16/2024 XR, knee, 3 view [email or web address]:/ [email or web address] ?Encry pted=s hAaTro YD8dLq bEUv6g %2BXZw aYqtaq 0bqfl% 2Fg9IQ a4ajBk vP9nXo QUaueC m3YtLR FvZlgJ JJ8mAn HZtai3 1n9441 AC0Kqb nuHVqa lKiQtr MwF INTERFACE [facility] [address] [facility], [place], [address], 09/16/2024 08:43:17 09/16/20 24 09/16/2024 XR, knee, 3 view [email or web address]:/ [email or web address] ?Encry pted=s hAaTro YD8dLq bEUv6g %2BXZw aYqtaq 0bqfl% 2Fg9IQ a4ajBk vP9nXo QUaueC m3YtLR FvZlgJ JJ8mAn HZtai3 3b8774 AC0Kqb nuHVqa lKiQtr MwF INTERFACE [facility] [address] [address], [place], [address], 09/16/2024 08:43:19 Result Notes None recorded. Problems Name Problem SNOMED Code Status Onset Date Resolution Date Notes Provider Name and Address Organization Details Recorded Time No complaints 617517631 Active Status : 'A'; Not Available [facility] 4 09:16:26 Ankylosis of right knee joint 6812741298308 Active 2023 Justino Richter MD [address], [place], [address] , [facility] 4 15:12:33 Pain of right knee joint 3183232104660 00 Active 2023 KAYLIA L'HEUREUX null, [facility] 4 11:44:08 Swelling of bilateral lower limbs 267308198 Active 2023 KAYLIA L'HEUREUX null, [facility] 4 09:07:45 Osteoarthr itis of right knee joint 4399736030123 00 Active 2023 Justino Richter MD [address], [place], [address] , [facility] 4 18:01:41 Osteoarthr itis of left knee joint 0890860423182 09 Active 2023 Justino Richter MD [address], [place], [address] , [facility] 4 18:01:42 Problem Notes None recorded. Procedures Surgical History Date Name Laterality Status Provider Name and Address Organization Details Recorded Time 08/25/20 56480 Therapeutic Exercise (1:1) completed Freddie Adame PTA [address], [place], [address], [facility] 08/25/2024 08:44:38 08/25/20 04664: Hot or Cold Pack completed Freddie Adame PTA [address], [place], [address], [facility] 08/25/2024 08:44:38 08/25/20 33981: Manual therapy completed Freddie Adame PTA [address], [place], [address], [facility] 08/25/2024 14:29:03 08/19/20 37737 Therapeutic Exercise (1:1) completed Freddie Adame, DATA DESIGNER [address], [place], [address], [facility] 08/18/2024 14:25:47 08/19/20 99485: Hot or Cold Pack completed Freddie Adame, DATA DESIGNER [address], [place], [address], [facility] 08/18/2024 14:25:47 08/19/20 31462: Manual therapy completed Freddie Adame DATA DESIGNER [address], [place], [address], [facility] 08/18/2024 14:25:47 08/14/20 89140 Therapeutic Exercise (1:1) completed Freddie Adame DATA DESIGNER [address], [place], [address], [facility] 08/12/2024 16:54:25 08/14/20 08417: Hot or Cold Pack completed Freddie Adame, DATA DESIGNER [address], [place], [address], [facility] 08/12/2024 16:54:25 08/14/20 16803: Manual therapy completed Freddie Adame, DATA DESIGNER [address], [place], [address], [facility] 08/12/2024 16:54:25 08/12/20 74289 Therapeutic Exercise (1:1) completed Freddie Adame, DATA DESIGNER [address], [place], [address], [facility] 08/12/2024 09:41:30 08/12/20 73170: Hot or Cold Pack completed Freddie Adame, DATA DESIGNER [address], [place], [address], [facility] 08/12/2024 09:41:30 08/12/20 04980: Manual therapy completed Freddie Adame, DATA DESIGNER [address], [place], [address], [facility] 08/12/2024 09:41:30 08/06/20 20515 Therapeutic Exercise (1:1) completed Freddie Adame PTA [address], [place], [address], [facility] 08/06/2024 14:46:53 08/06/20 32729: Hot or Cold Pack completed Freddie Adame PTA [address], [place], [address], [facility] 08/05/2024 18:30:29 08/06/20 08482: Manual therapy completed Freddie Adame PTA [address], [place], [address], [facility] 08/05/2024 18:30:29 08/04/20 99668 Therapeutic Exercise (1:1) completed Freddie Adame PTA [address], [place], [address], [facility] 08/04/2024 09:44:54 08/04/20 14341: Hot or Cold Pack completed Freddie Adame PTA [address], [place], [address], [facility] 08/04/2024 09:44:54 08/04/20 74269: Manual therapy completed Freddie Adame PTA [address], [place], [address], [facility] 08/04/2024 09:44:54 07/31/20 79381 Therapeutic Exercise (1:1) completed Freddie Adame PTA [address], [place], [address], [facility] 07/31/2024 14:39:01 07/31/20 06643: Hot or Cold Pack completed Freddie Adame PTA [address], [place], [address], [facility] 07/30/2024 10:16:09 07/31/20 10019: Manual therapy completed Freddie Adame DATA DESIGNER [address], [place], [address], [facility] 07/30/2024 10:16:09 07/29/20 10188 Therapeutic Exercise (1:1) completed TRUPTI PowellT [address], [place], [address], [facility] 07/29/2024 18:12:01 07/29/20 87599: Hot or Cold Pack completed Judd Hodgson DPT [address], [place], [address], [facility] 07/29/2024 18:12:13 07/29/20 04994: Manual therapy completed TRUPTI PowellT [address], [place], [address], [facility] 07/29/2024 18:12:06 07/24/20 24 75545 Therapeutic Exercise (1:1) completed TRUPTI PowellT [address], [place], [address], [facility] 07/23/2024 14:29:24 07/24/20 34346: Low complexity PT Eval completed Judd Hodgson DPT [address], [place], [address], [facility] 07/23/2024 14:29:19 02/01/20 24 Zilretta Knee Injection, Bilateral completed Justino Richter MD [address], [place], [address], [facility] 02/01/2024 18:01:54 Imaging Results None recorded. Procedure [...] Status Never Smoker Kathleen solorio [place] - [facility] 07/24/2024 14:15:28 Do You Or Have You [...] Diagnosis/Indication Diagnosis SNOMED-CT Code Diagnosis ICD10 Code [id number] BREEZY Dotson [address] [place] [address] 07/01/2024 09:09:39 07/26/2024 03:58:54 Osteoarthritis of right knee joint 6550057520 36876 M17.11 [id number] [facility] [address] [place] [address] 07/24/2024 11:11:22 07/24/2024 12:28:34 History of total knee arthroplasty 4477262043 105 Z96.131 [id number] BHARGAV Fox [address] [place] [address] 07/24/2024 13:49:37 08/15/2024 09:20:00 Postoperative visit 861534703 Z48.89 [id number] TRUPTI PowellT [facility] [address] [place] [address] 07/29/2024 17:07:06 07/29/2024 18:46:56 History of total knee arthroplasty 6809097568 105 Z96.828 [id number] [facility] [address] [place] [address] 07/31/2024 13:36:22 07/31/2024 15:38:09 History of total knee arthroplasty 5637145457 105 Z96.651 Health Concerns Section Related Observation LastModified by Organization Detai ls LastModified Time None Recorded Concern Status LastModified by Organization Details LastModified Time None Recorded Payers Encounter Date Sequence Insurance Name Policy Number Policy Campos Covered Member ID Campos Member ID Guarantor Name 07/31/2024 1 [facility] [employer] - TOGETHER (MEDICAID HMO) [id number] Linda Cleveland [id number] Linda Cleveland Notes Date Note Type Note Provider Name and Address Organization Details Recorded Time 07/31/2024 text/html My knee is just stiff and I think it was bc of the long drive here. Freddie Adame, DATA DESIGNER [address], [place], [address], [facility] 07/31/2024 14:44:13 OBGyn Episode No OBEpisode recorded.
--- OUTSIDE RECORDS SUMMARY | 2024-09-22 14:33 | XMS_ITS | Continuity of Care Document ---
Author Organization [facility] [address] [place] [address] Care Team Providers Care Table Saw Operator Name Role Phone GAGE ISIDRO Primary Care Provider Assessment Encounter Date Assessment Date Assessment LastModified by Organization Details LastModified Time 08/25/2024 08/25/2024 Assessment: Pt have plateaued out but have working towards improving her pain jese with knee bends. Pt's patellar is very restricted with decrease mobility. Plan: Continue POC. Progress to tolerance [id number] Not available 08/25/2024 14:29:58 Plan of Treatment Reminders Order Date Submit Date Provider Last Modified By Organization Details Last Modified Time Details Appointments PT FOLLOW -UP 024 12:00PM Emilia Wood HOUSEKEEPING ATTENDANT Not available Not available Not available PT FOLLOW -UP 025 01:30PM Bethany Muse HOUSEKEEPING ATTENDANT Not available Not available Not available PT FOLLOW -UP 025 11:00AM Bethany Muse HOUSEKEEPING ATTENDANT Not available Not available Not available PT FOLLOW -UP 025 10:00AM Judd Hodgson DPT Not available Not available Not available PT FOLLOW -UP 025 12:30PM Freddie Adame HOUSEKEEPING ATTENDANT Not available Not available Not available PT FOLLOW -UP 025 11:00AM Freddie Adame HOUSEKEEPING ATTENDANT Not available Not available Not available POST [...] 08/20/2024 XR, knee, 3 view [email or web address] ?Encry pted=s hAaTro YD8dLq bEUv6g %2BXZw aYqtaq 0bqfl% 2Fg9IQ a4ajBk vP9nXo QUaueC m3YtLR FvZlgJ JJ8mAn HZtai3 4k7098 AC0Kqa XiAWKW kKiQtr MwF INTERFACE [facility] [address], [place], [address], 08/20/2024 14:26:23 08/20/20 24 08/20/2024 XR, knee, 3 view [email or web address]:/ [email or web address] ?Encry pted=s hAaTro YD8dLq bEUv6g %2BXZw aYqtaq 0bqfl% 2Fg9IQ a4ajBk vP9nXo QUaueC m3YtLR FvZlg JJ8[place] HZtai3 3r3036 AC0Kqa XiAWKW kKiQtr MwF INTERFACE [facility] [address], [place], [address], 08/20/2024 14:26:25 09/10/20 24 09/10/2024 US, kelly kauffman s, lower extre mity No observ ation record ed. [facility] [place] [address], [address], 09/11/2024 13:18:08 09/10/20 24 09/10/2024 US, kelly kauffman, lower extre mity No observ ation record ed. jBizilye [facility] [place] [address], [address], 09/11/2024 13:18:09 09/16/20 24 09/16/2024 XR, knee, 3 view [email or web address]:/ [email or web address] ?Encry pted=s hAaTro YD8dLq bEUv6g %2BXZw aYqtaq 0bqfl% 2Fg9IQ a4ajBk vP9nXo QUaueC m3YtLR FvZlgJ JJ8mAn HZtai3 2u7877 AC0Kqb nuHVqa lKiQtr MwF INTERFACE [facility] [address], [place], [address], 09/16/2024 08:43:17 09/16/20 24 09/16/2024 XR, knee, 3 view [email or web address]:/ [email or web address] ?Encry pted=s hAaTro YD8dLq bEUv6g %2BXZw aYqtaq 0bqfl% 2Fg9IQ a4ajBk vP9nXo QUaueC m3YtLR FvZlgJ JJ8mAn HZtai3 9r5187 AC0Kqb nuHVqa lKiQtr MwF INTERFACE [facility] [address], [place], [address], 09/16/2024 08:43:19 Result Notes None recorded. Problems Name Problem SNOMED Code Status Onset Date Resolution Date Notes Provider Name and Address Organization Details Recorded Time No complaints 704227192 Active Status : 'A'; Not Available [facility] 09:16:26 Ankylosis of right knee joint 8188954728500 01 Active 2023 Justino Richter MD [address], [place], [address] , [facility] 4 15:12:33 Pain of right knee joint 4436359300273 00 Active 2023 JASBIR solorio [place] - [facility] 4 11:44:08 Swelling of bilateral lower limbs 682492658 Active [address] [facility] 09:07:45 Osteoarthr itis of right knee joint 3435815918293 00 Active 2023 Justino Richter MD [address], [place], [address] , [facility] 4 18:01:41 Osteoarthr itis of left knee joint 6148708177095 09 Active 2023 Justino Richter MD [address], [place], [address] , [facility] 18:01:42 Problem Notes None recorded. Procedures Surgical History Date Name Laterality Status Provider Name and Address Organization Details Recorded Time 08/25/20 82177 Therapeutic Exercise (1:1) completed Freddie Adame PTA [address], [place], [address], [facility] 08/25/2024 08:44:38 08/25/20 47628: Hot or Cold Pack completed Freddie Adame PTA [address], [place], [address], [facility] 08/25/2024 08:44:38 08/25/20 24202: Manual therapy completed Freddie Adame PTA [address], [place], [address], [facility] 08/25/2024 14:29:03 08/19/20 63680 Therapeutic Exercise (1:1) completed Freddie Adame PTA [address], [place], [address], [facility] 08/18/2024 14:25:47 08/19/20 32755: Hot or Cold Pack completed Freddie Adame PTA [address], [place], [address], [facility] 08/18/2024 14:25:47 08/19/20 45003: Manual therapy completed Freddie Adame, HOUSEKEEPING ATTENDANT [address], [place], [address], [facility] 08/18/2024 14:25:47 08/14/20 06268 Therapeutic Exercise (1:1) completed Freddie Adame PTA [address], [place], [address], [facility] 08/12/2024 16:54:25 08/14/20 02647: Hot or Cold Pack completed Freddie Adame HOUSEKEEPING ATTENDANT [address], [place], [address], [facility] 08/12/2024 16:54:25 08/14/20 58028: Manual therapy completed Freddie Adame PTA [address], [place], [address], [facility] 08/12/2024 16:54:25 08/12/20 59497 Therapeutic Exercise (1:1) completed Freddie Adame PTA [address], [place], [address], [facility] 08/12/2024 09:41:30 08/12/20 21686: Hot or Cold Pack completed Freddie Adame PTA [address], [place], [address], [facility] 08/12/2024 09:41:30 08/12/20 89352: Manual therapy completed Freddie Adame PTA [address], [place], [address], [facility] 08/12/2024 09:41:30 08/06/20 96568 Therapeutic Exercise (1:1) completed Freddie Adame HOUSEKEEPING ATTENDANT [address], [place], [address], [facility] 08/06/2024 14:46:53 08/06/20 91143: Hot or Cold Pack completed Freddie Adame HOUSEKEEPING ATTENDANT [address], [place], [address], [facility] 08/05/2024 18:30:29 08/06/20 37652: Manual therapy completed Freddie Adame HOUSEKEEPING ATTENDANT [address], [place], [address], [facility] 08/05/2024 18:30:29 08/04/20 82072 Therapeutic Exercise (1:1) completed Freddie Adame HOUSEKEEPING ATTENDANT [address], [place], [address], [facility] 08/04/2024 09:44:54 08/04/20 56229: Hot or Cold Pack completed Freddie Adame HOUSEKEEPING ATTENDANT [address], [place], [address], [facility] 08/04/2024 09:44:54 08/04/20 17309: Manual therapy completed Freddie Adame HOUSEKEEPING ATTENDANT [address], [place], [address], [facility] 08/04/2024 09:44:54 07/31/20 15696 Therapeutic Exercise (1:1) completed Freddie Adame HOUSEKEEPING ATTENDANT [address], [place], [address], [facility] 07/31/2024 14:39:01 07/31/20 41484: Hot or Cold Pack completed Freddie Adame PTA [address], [place], [address], [facility] 07/30/2024 10:16:09 07/31/20 02560: Manual therapy completed Freddie Adame HOUSEKEEPING ATTENDANT [address], [place], [address], [facility] 07/30/2024 10:16:09 07/29/20 08154 Therapeutic Exercise (1:1) completed TRUPTI PowellT [address], [place], [address], [facility] 07/29/2024 18:12:01 07/29/20 66034: Hot or Cold Pack completed Judd Hodgson DPT [address], [place], [address], [facility] 07/29/2024 18:12:13 07/29/20 51078: Manual therapy completed TRUPTI PowellT [address], [place], [address], [facility] 07/29/2024 18:12:06 07/24/20 33943 Therapeutic Exercise (1:1) completed Judd Hodgson DPT [address], [place], [address], [facility] 07/23/2024 14:29:24 07/24/20 74014: Low complexity PT Eval completed Judd Hodgson DPT [address], [place], [address], [facility] 07/23/2024 14:29:19 02/01/20 Zilretta Knee Injection, Bilateral completed Justino Richter MD [address], [place], [address], [facility] 02/01/2024 18:01:54 Imaging [...] Status Never Smoker Kathleen solorio [place] - [facility] 07/24/2024 14:15:28 Do You Or [...] Diagnosis/Indication Diagnosis SNOMED-CT Code Diagnosis ICD10 Code [id number] Judd Hodgson DPT [facility] [address] [address] 07/29/2024 17:07:06 07/29/2024 18:46:56 History of total knee arthroplasty 5658449434 105 Z96.379 [id number] [facility] [address] [address] 07/31/2024 13:36:22 07/31/2024 15:38:09 History of total knee arthroplasty 0255524609 105 Z96.769 [id number] Judd Hodgson DPT [facility] [address] [address] 08/04/2024 13:38:13 08/04/2024 15:48:53 History of total knee arthroplasty 7575679285 105 Z96.087 [id number] Judd Hodgson DPT [facility] [address] [address] 08/06/2024 13:43:11 08/06/2024 14:47:31 History of total knee arthroplasty 2510255272 105 Z96.897 [id number] BHARGAV Fox [address] [place] [address] 08/07/2024 12:52:14 08/20/2024 12:07:22 History of right total knee replacement 1298499966 584093 Z96.225 [id number] Judd Hodgson DPT [facility] [address] [place] [address] 08/12/2024 13:06:55 08/12/2024 14:57:39 History of total knee arthroplasty 8998492646 105 Z96.706 [id number] Judd Hodgson DPT [facility] [address] [place] [address] 08/14/2024 13:37:55 08/14/2024 14:39:00 History of total knee arthroplasty 6859679541 105 Z96.848 [id number] Judd Hodgson DPT [facility] [address] [place] [address] 08/19/2024 13:39:45 08/19/2024 14:44:19 History of total knee arthroplasty 7117094581 105 Z96.072 [id number] MD Michelle Portillo [address] [place] [address] 08/20/2024 13:30:39 09/08/2024 12:12:38 History of right total knee replacement 2383730858 658587 Z96.651 Ankylosis of right knee joint 5480942928 95978 M24.484 [id number] Judd Hodgson DPT [facility] [address] [place] [address] 08/25/2024 13:38:40 08/25/2024 14:30:33 History of total knee arthroplasty 2463140796 105 Z96.651 Health Concerns Section Related Observation LastModified by Organization Detai ls LastModified Time None Recorded Concern Status LastModified by Organization Details LastModified Time None Recorded Payers Encounter Date Sequence Insurance Name Policy Number Policy Campos Covered Member ID Campos Member ID Guarantor Name 08/25/2024 1 [facility] [employer] - TOGETHER (MEDICAID HMO) [id number] Linda Cleveland [id number] Linda Cleveland Notes Date Note Type Note Provider Name and Address Organization Details Recorded Time 08/25/2024 text/html I am doing my bending at home. Pt reporting knee stiffness. Freddie Adame, HOUSEKEEPING ATTENDANT [address], [place], [address], [place] - [facility] 08/25/2024 14:30:26 OBGyn Episode No OBEpisode recorded.
[2024-09-22 14:58] LABS: MANUAL DIFF FLAG NO
[2024-09-22 15:05] LABS: Basophils Percent Auto 0.3 % (0-2); Eosinophils Absolute Auto 0.1 X10*3/uL (0.0-0.4); Hematocrit 37.4 % (37.0-47.0); Hemoglobin 12.3 g/dl (12.0-16.0); Imm Gran Abs Auto 0.01 X10*3/uL (0.00-0.03); Imm Gran Pct Auto 0.2 % (0.0-0.4); Lymphocytes Absolute Auto 1.7 X10*3/uL (1.2-4.9); Lymphocytes Percent Auto 29.7 % (20-40); Mean Corpuscular HGB Conc 32.9 g/dl (31.0-35.0); Mean Corpuscular Hemoglobin 30.8 pg (27.0-33.0); Mean Corpuscular Volume 93.5 fL (80.0-98.0); Mean Platelet Volume 10.1 fL (9.4-12.3); Monocytes Absolute Auto 0.5 X10*3/uL (0.1-1.2); Monocytes Percent Auto 7.9 % (2-11); Neutrophils Absolute Auto 3.5 x10*3/uL (2.0-8.3); Neutrophils Percent Auto 60.9 % (45-73); Platelet Count 246 X10*3/uL (160-400); Red Cell Distribution Width 14.2 % (11.0-16.0); White Blood Count 5.8 X10*3/uL (4.8-10.8)
[2024-09-22 15:45] LABS: Alanine Aminotransferase 154 U/L (0-31); Albumin Level 3.9 g/dL (3.5-5.0); Anion Gap 9 (12-20); Aspartate Amino Transferase 83 U/L (5-31); Bilirubin Total 0.6 mg/dL (0.0-1.0); Blood Urea Nitrogen 13 mg/dL (9-16); Calcium 9.2 mg/dL (8.4-10.2); Carbon Dioxide 27 mmol/L (22-29); Chloride 111 mmol/L (96-108); Cholesterol 181 mg/dL (<200); Estimated Glomerular Filt Rate > 60; Glucose Fasting 125 mg/dL (60-99); HDL Cholesterol 67 mg/dL (>40); LDL Cholesterol Calculated 101 mg/dL (<100); Potassium 3.7 mmol/L (3.3-5.1); Sodium 143 mmol/L (135-145); Total Protein 6.9 g/dL (6.5-8.0); Triglycerides 66 mg/dL (<150)
[2024-09-22 15:48] LABS: Alkaline Phosphatase 64 U/L (39-117)
[2024-09-22 16:00] LABS: Free T4 (Free Thyroxine) 1.09 ng/dL (0.71-1.85)
== END 2024-09-22 14:31 | disposition home or self-care (01) ==
LOC: HO.US 14:30
PROVIDERS: PCP Internal Medicine; Visit Provider Internal Medicine
DX: E66.01 Morbid (severe) obesity due to excess calories (principal); D64.9 Anemia, unspecified; E04.1 Nontoxic single thyroid nodule
CPT/HCPCS: 36415; 76536; 80053; 80061; 84439; 84443; 85025

== ENCOUNTER → 2024-09-22 14:59 | Outpatient (BNV) | payer OTHER, SELFPAY | PROVIDERS: PCP Internal Medicine; Visit Provider Radiology Diagnostic Radiology | DX: E04.1 Nontoxic single thyroid nodule (principal) | CPT/HCPCS: 76536 ==

== ENCOUNTER 2024-09-30 12:51 | Outpatient (AMB) | payer OTHER, SELFPAY ==
--- NOTE | 2024-09-30 12:52 | MHC.OFFVIS ---
Vital Signs 09/30/24 12:53 Height 4 ft 10 in Weight 174 lb 2.643 oz BMI 36.4 BP 132/84 Blood Pressure Location Rt brachial Position Sitting Pulse 77 Pulse Source Pulse Oximeter Pulse Oximetry (%) 98 Oxygen Delivery Method Room Air Intake Visit Reasons: Asthma Allergies No Known Allergies Allergy (Verified 09/30/24 12:56) HPI Comments Details: The patient is a 49-year-old woman with a known history of moderate persistent asthma, history recurring pulmonary emboli currently on lifelong anticoagulation and also morbid obesity. Her respiratory status has been stable. 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 But, for now she has been doing well from the asthma standpoint. In regards of the history of pulmonary emboli she continues on the Eliquis 5 mg twice a day. She is wondering about 1 is safe to decrease the dose. I do feel she should be at least on a year's worth therapeutic Eliquis prior to deciding to cut down to half dose. She is currently dealing with an issue with her right knee. She has a torn ACL and is awaiting getting a brace for this injury. She continues to try to exercise and she lost approximately around 40 lb as she has continued to exercise and maintain a lifestyle change. In the meantime the patient does have a torn ACL. Because of her history of blood clots the patient cannot have surgery done locally. Once this duration improves with the she should go to [place] to have an evaluation. In the meantime for her anxiety that is ultimately affecting her ability to function and also at worsening respiratory symptoms the patient is requesting to talk to a mental health counselor. I will help her make arrangements for in order for her to do that. 09/28/2023 the patient is here for a pulmonary follow-up visit. The patient overall is doing about the same from the orthopedic issue. Still having significant right knee pain. She did have arthroscopic surgery, but, ultimately needs a repeat total knee replacement. She is following closely with orthopedic surgery. Because of her significant disability she has been able to go back to work. At this point the patient is significantly overweight she is already losing weight and she is part of a bariatric program. She is trying to undergo a gastric sleeve in the coming months. From a respiratory status the patient does have a history of asthma. She has been stable on the current therapy. She has not had any recent flare-ups. She does have Symbicort as a maintenance inhaler. The patient did undergo spirometry dating her spirometry numbers are perfectly normal which is reassuring. In addition to that she has had history of recurrent blood clots. The patient has been on long-term anticoagulation with Eliquis which she tolerated well. Prior to that she was on Coumadin but had issues with hair loss and she was not happy with that. The Eliquis has been working very well. Now going to surgery the patient will have to stop the Eliquis per the surgeon's protocol but we have to restart anticoagulation or antithrombotic therapy quickly after surgery to minimize the risk of recurrent clotting the patient indeed is high risk for recurrent blood clots. Clinically the patient is doing very good and she is able to consent for surgery and also anesthesia at this time. 04/15/2024 the patient is here for a pulmonary follow-up visit. The patient continues to do well. She did undergo her bariatric surgery at [facility] and went very well. She did stop the Eliquis as prescribed and she was able to restart the Eliquis without any issues. No minor major bleeding noted. She has been monitoring closely her protein intake and has been taking her supplemental vitamins. Overall she is doing very good with her recovery after her surgery. She will be seeing her orthopedic doctor sometime in April to assess her physical state in potentially schedule her surgery. The patient needs to undergo a total knee replacement on the right side. From a respiratory status she is doing well. She has been off the Symbicort which is reassuring. She has a rescue inhaler that she uses as needed. She continues on full-dose Eliquis without any issues. She knows that she will be on anticoagulation lifelong. 06/26/2024 the patient is here for a preoperative evaluation. The patient overall has been doing well from a respiratory status. The patient has not required a maintenance inhalers. She also has not required her rescue inhaler. She does continue on full-dose Eliquis for the history of recurrent blood clots. The patient now is scheduled to undergo a total knee replacement. The patient does have increased risk for perioperative pulmonary complications including thromboembolic disease, bronchospasms, atelectasis hypoxia and pneumonia. At this point the patient is medically optimize may be able to proceed with anesthesia and surgery. I do believe that she should not have any restrictions from anesthesia point of view. She can not tolerate general surgery. We did talk about her anticoagulation prior to surgery. Once the patient has surgery she should go back on Lovenox or straight on Eliquis if deemed safe by her surgeon. The patient follow-up in 3-4 months after his surgery to reassess. 09/30/2024 the patient is here for a pulmonary follow-up visit. Since she had her surgery she did require further manipulation of the total knee. After she ended up with swelling of her knee and was found to have a nonocclusive DVT. She already had been on Eliquis in very hearing to the therapy. She went to [facility] which she was then placed on Lovenox and she did a CTA demonstrating no evidence of any thromboembolic disease. But they found a thyroid nodule. She did undergo an ultrasound of thyroid. She also underwent blood work it was noted that her liver function studies were elevated. Apparently she has been taking a lot of new medicines including Tylenol and she was taking tramadol it had been taking some Percocet. In addition to that the enoxaparin sometimes can also elevate the LFTs. Therefore, she will come in next week to recheck her LFTs and make sure that they are stable if not better. If there still climbing, then need to consider the enoxaparin the culprit. She also did undergo the thyroid ultrasound. Waiting for the results. Currently on Lovenox. She is taking 80 mg subQ twice a day. Seems to be tolerating it but it does cause significant bruising and discomfort to the skin area. She will stay on the Lovenox hopefully for 2 months and then after that once the blood clots are clear she can go back on Eliquis with the hope that she can stay clear of any thrombotic disease. From an asthma standpoint the patient is doing well [facility] Medical History (Updated 09/30/24 @ 19:41 by Sen Betancur MD) DVT (deep venous thrombosis) Osteoarthritis of right knee Knee pain, right Lower extremity edema Pulmonary emboli Asthma Surgical History History of cholecystectomy History of lateral meniscus repair of right knee History of hysterectomy Family History Mother No problems noted. Father Prostate cancer Social History Housing: House Patient Tobacco Use Status: Never used Tobacco e-Cigarette/Vaping Use: Never Used Second Hand Smoke Exposure: No service: No Current occupational status: disabled Cognitive needs: Yes Hearing needs: No Vision needs: Yes Review of Systems Const Denies chills, Denies night sweats and Reports weight loss ENT Denies change in voice, Denies lip swelling, Denies mouth pain, Reports nasal congestion, Reports nasal discharge and Denies tongue swelling Card Denies chest pain Resp Reports cough and Denies wheezing GI Denies abdominal pain Musc Reports as per HPI, Reports arthralgias, Reports joint swelling, Reports limited range of motion, Reports muscle weakness and Reports stiffness Skin/Breast Denies rash Neuro Denies Neuro-related abnormal movements Psych Denies no additional complaints Minh/Lymph Denies easy bleeding and Denies lymphadenopathy Aller/Immun Denies lip swelling, Denies tongue swelling and Denies wheezing Physical Exam Vital Signs: Last Vital Signs Pulse 77 09/30/24 12:53 BP 132/84 09/30/24 12:53 Pulse Ox 98 09/30/24 12:53 Oxygen Delivery Method Room Air 09/30/24 12:53 BMI result Body Mass Index 36.4 Const General: cooperative, healthy appearing, no acute distress and alert HEENT Head: Yes normal to inspection Eyes General: appearance normal, both eyes and all related structures Neck Neck: Yes normal visual inspection Chest Chest palpation & inspection: normal inspection of the chest Resp Effort & Inspection: normal respiratory effort Auscultation: clear to auscultation bilaterally and no wheezes Cardio Rate: regular rate Rhythm: regular rhythm Heart sounds: S1 normal heart sound present and S2 normal heart sound present GI Palpation (GI): Soft to palpation Skin General skin exam: no rashes or lesions noted Extrem General: No clubbing, No cyanosis and Yes edema Results Reviewed Results Reviewed: personally reviewd CTA from [facility] [place], +thyroid nodules, no PE Assessment & Plan Assessment & Plan (1) Asthma: Code(s): J45.909 - Unspecified asthma, uncomplicated Category: Medical Qualifiers: Asthma severity: moderate Asthma persistence: persistent Asthma complication type: uncomplicated Qualified Code(s): J45.40 - Moderate persistent asthma, uncomplicated (2) Pulmonary emboli: Code(s): I26.99 - Other pulmonary embolism without acute cor pulmonale Category: Medical Qualifiers: Pulmonary embolism type: unspecified Chronicity: chronic Acute cor pulmonale presence: without acute cor pulmonale Qualified Code(s): I27.82 - Chronic pulmonary embolism (3) Transaminitis: Code(s): R74.01 - Elevation of levels of liver transaminase levels Category: Medical (4) Thyroid nodule: Code(s): E04.1 - Nontoxic single thyroid nodule Category: Medical (5) DVT (deep venous thrombosis): Code(s): I82.409 - Acute embolism and thrombosis of unspecified deep veins of unspecified lower extremity Category: Medical Qualifiers: DVT location: lower extremity Affected thrombotic vein of extremity: unspecified vein of extremity Chronicity: acute Laterality: right Qualified Code(s): I82.401 - Acute embolism and thrombosis of unspecified deep veins of right lower extremity Plan continue Lovenox x 8 weeks, then likely restart Eliquis if DVT resolved. Then likely follow ddimers and serial US Will likely need Thyroid nodule bx, will need endo referral. Pt can stop the Lovenox 12 hours prior for biopsy, then restart Short-acting beta agonist as needed F/U with Hematology continue Zyrtec as needed Bloodwork next week. LFTs likely elevated due to polyoharmacy. Although, Lovenox can also result in transaminitis. Therefore, if labs still elevated or worsening we would need to consider med changes Follow-up in 3-4 months Coding Level of Care Code Est Pt Level 5 (15177) Diagnoses Moderate persistent asthma without complication J45.40 Asthma severity: moderate Asthma persistence: persistent Asthma complication type: uncomplicated Chronic pulmonary embolism without acute cor pulmonale, unspecified pulmonary embolism type I27.82 Pulmonary embolism type: unspecified Chronicity: chronic Acute cor pulmonale presence: without acute cor pulmonale Transaminitis R74.01 Thyroid nodule E04.1 Acute deep vein thrombosis (DVT) of right lower extremity, unspecified vein I82.401 DVT location: lower extremity Affected thrombotic vein of extremity: unspecified vein of extremity Chronicity: acute Laterality: right Time Spent (min) 45
[2024-09-30 12:53] VITALS: BP 132/84; PULSE 77; O2SAT 98; BMI 36.4
--- OUTSIDE RECORDS SUMMARY | 2024-09-30 14:58 | XMS_ITS | Continuity of Care Document ---
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 She struggles with keeping her R LE out of ER and still has very poor quad control. Plan: Continue POC. Progress as tolerated. [email or web address] Not available 09/29/2024 10:42:25 Plan of Treatment Reminders Order Date Submit Date Provider Last Modified By Organization Details Last Modified Time Details Appointments PT FOLLOW -UP 025 12:30PM Freddie Adame ETL ANALYST Not available Not available Not available PT FOLLOW -UP 025 11:00AM Freddie Adame ETL ANALYST Not available Not available Not available PT FOLLOW -UP 025 12:00PM Judd Hodgson DPT Not available Not available Not available POST OP 10 025 01:40PM Justino Richter MD Not available Not available Not available PT FOLLOW -UP 025 02:00PM TRUPTI PowellT Not available Not available Not available PT FOLLOW -UP 025 12:00PM Judd Hodgson DPT Not available Not available Not available PT FOLLOW -UP 025 12:00PM Judd Hodgson DPT Not available Not available Not available PT FOLLOW -UP 025 12:00PM Judd Arnolddeja, DPT Not available Not available Not available PT FOLLOW -UP 025 12:00PM Judd Hodgson, DPT Not available Not available Not available PT FOLLOW -UP 025 12:00PM Judd Hodgson, DPT Not available Not available Not available PT FOLLOW -UP 025 12:00PM Judd Hodgson, DPT Not available Not available Not available Lab None record ed. Referral None record ed. Procedures None record ed. Surgeries None record ed. Imaging None record ed. Medication Orders None record ed. Patient TargetsNo targets recorded. Patient InstructionsNo instructions recorded. Reason for Referral None Reported. Results Created Date Observation Date Name Description Value Unit Range Abnormal Flag Note LastModifiedBy Organization Detail LastModifiedTime 09/10/20 24 09/10/2024 US, duple x, venou s, lower extre mity No observ ation record ed. [facility] [address] [address], [place], [address], 09/11/2024 13:18:08 09/10/20 24 09/10/2024 US, duple x, venou s, lower extre mity No observ ation record ed. [facility] [address] [facility] [address], [place], [address], 09/11/2024 13:18:09 09/16/20 24 09/16/2024 XR, knee, 3 view [email or web address]:/ [email or web address] ?Encry pted=s hAaTro YD8dLq bEUv6g %2BXZw aYqtaq 0bqfl% 2Fg9IQ a4ajBk vP9nXo QUaueC m3YtLR FvZlgJ JJ8mAn HZtai3 5g6390 AC0Kqb nuHVqa lKiQtr MwF INTERFACE [facility] [address], [place], [address], 09/16/2024 08:43:17 12/2409/16/2024 XR, knee, 3 view [email or web address]:/ [email or web address] ?Encry pted=s hAGeoffreyo YD8dLq bEUv6g %2BXZw aYqtaq 0bqfl% 2Fg9IQ a4ajBk vP9nXo QUaueC m3YtLR FvZlgJ JJ8mAn HZtai3 5x1863 AC0Kqb nuHVqa lKiQtr MwF INTERFACE [facility] [address], [place], [address], 09/16/2024 08:43:19 Result Notes None recorded. Problems Name Problem SNOMED Code Status Onset Date Resolution Date Notes Provider Name and Address Organization Details Recorded Time No complaints 579967930 Active Status : 'A'; Not Available Formerly [facility] 4 09:16:26 Ankylosis of right knee joint 8046621764306 Active 2023 Justino Richter MD [address], [place], [address] , [facility] 4 15:12:33 Pain of right knee joint 9443360713198 00 Active 2023 KAYLIA L'HEUREUX null, [facility] 4 11:44:08 Swelling of bilateral lower limbs 358961805 Active 2023 KAYLIA L'HEUREUX null, [facility] 4 09:07:45 Osteoarthr itis of right knee joint 9233845376018 00 Active 2023 Justino Richter MD [address], [place], [address] , [facility] 4 18:01:41 Osteoarthr itis of left knee joint 2918016797283 09 Active 2023 Justino Richter MD [address], [place], [address] , [facility] 4 18:01:42 Problem Notes None recorded. Procedures Surgical History Date Name Laterality Status Provider Name and Address Organization Details Recorded Time 08/25/20 42132 Therapeutic Exercise (1:1) completed Freddie Adame ETL ANALYST [address], [place], [address], [facility] 08/25/2024 08:44:38 08/25/20 52759: Hot or Cold Pack completed Freddie Adame ETL ANALYST [address], [place], [address], [facility] 08/25/2024 08:44:38 08/25/20 34081: Manual therapy completed Freddie Adame ETL ANALYST [address], [place], [address], [facility] 08/25/2024 14:29:03 08/19/20 49745 Therapeutic Exercise (1:1) completed Freddie Adame ETL ANALYST [address], [place], [address], [facility] 08/18/2024 14:25:47 08/19/20 67630: Hot or Cold Pack completed Freddie Adame, ETL ANALYST [address], [place], [address], [facility] 08/18/2024 14:25:47 08/19/20 89921: Manual therapy completed Freddie Adame ETL ANALYST [address], [place], [address], [facility] 08/18/2024 14:25:47 08/14/20 22710 Therapeutic Exercise (1:1) completed Freddie Adame ETL ANALYST [address], [place], [address], [facility] 08/12/2024 16:54:25 08/14/20 19122: Hot or Cold Pack completed Freddie Adame, ETL ANALYST [address], [place], [address], [facility] 08/12/2024 16:54:25 08/14/20 86270: Manual therapy completed Freddie Adame, ETL ANALYST [address], [place], [address], [facility] 08/12/2024 16:54:25 08/12/20 13710 Therapeutic Exercise (1:1) completed Freddie Adame PTA [address], [place], [address], [facility] 08/12/2024 09:41:30 08/12/20 27516: Hot or Cold Pack completed Freddie Adame ETL ANALYST [address], [place], [address], [facility] 08/12/2024 09:41:30 08/12/20 00266: Manual therapy completed Freddie Adame PTA [address], [place], [address], [facility] 08/12/2024 09:41:30 08/06/20 54949 Therapeutic Exercise (1:1) completed Freddie Adame PTA [address], [place], [address], [facility] 08/06/2024 14:46:53 08/06/20 40143: Hot or Cold Pack completed Freddie Adame PTA [address], [place], [address], [facility] 08/05/2024 18:30:29 08/06/20 98009: Manual therapy completed Freddie Adame PTA [address], [place], [address], [facility] 08/05/2024 18:30:29 08/04/20 58881 Therapeutic Exercise (1:1) completed Freddie Adame ETL ANALYST [address], [place], [address], [facility] 08/04/2024 09:44:54 08/04/20 13783: Hot or Cold Pack completed Freddie Adame ETL ANALYST [address], [place], [address], [facility] 08/04/2024 09:44:54 08/04/20 00754: Manual therapy completed Freddie Adame ETL ANALYST [address], [place], [address], [facility] 08/04/2024 09:44:54 07/31/20 05769 Therapeutic Exercise (1:1) completed Freddie Adame ETL ANALYST [address], [place], [address], [facility] 07/31/2024 14:39:01 07/31/20 79868: Hot or Cold Pack completed Freddie Adame ETL ANALYST [address], [place], [address], [facility] 07/30/2024 10:16:09 07/31/20 83896: Manual therapy completed Freddie Adame PTA [address], [place], [address], [facility] 07/30/2024 10:16:09 07/29/20 42617 Therapeutic Exercise (1:1) completed RTUPTI PowellT [address], [place], [address], [facility] 07/29/2024 18:12:01 07/29/20 93432: Hot or Cold Pack completed Judd Hodgson DPT [address], [place], [address], [facility] 07/29/2024 18:12:13 07/29/20 60363: Manual therapy completed Judd Hodgson DPT [address], [place], [address], [facility] 07/29/2024 18:12:06 07/24/20 41240 Therapeutic Exercise (1:1) completed Judd Hodgson DPT [address], [place], [address], [facility] 07/23/2024 14:29:24 07/24/20 99012: Low complexity PT Eval completed Judd Hodgson, DPT [address], [place], [address], [facility] 07/23/2024 14:29:19 02/01/20 [place] Knee Injection, Bilateral completed Justino Richter MD [address], [place], [address], [facility] 02/01/2024 18:01:54 Imaging Results [...] Status Never Smoker Kathleen solorio [place] - [place] [facility] 07/24/2024 14:15:28 Do You [...] Diagnosis/Indication Diagnosis SNOMED-CT Code Diagnosis ICD10 Code Diagnosis Note [id number] [facility] [address] [address] 09/01/2024 09:07:08 09/01/2024 10:21:59 History of total knee arthroplasty 3972675868 105 Z96.290 [id number] Judd Hodgson, DPT [facility] [address] [place] [address] 09/02/2024 16:36:40 09/02/2024 17:24:55 History of total knee arthroplasty 3971463103 105 Z96.918 [id number] Judd Hodgson DPT [facility] [address] [place] [address] 09/03/2024 13:28:29 09/03/2024 14:28:52 History of total knee arthroplasty 0507645555 105 Z96.334 [id number] Judd Hodgson DPT [facility] [address] [place] [address] 09/04/2024 10:39:01 09/05/2024 08:26:23 History of total knee arthroplasty 1894980435 105 Z96.649 [id number] TRUPTI PowellT [facility] [address] [place] [address] 09/05/2024 14:00:30 09/05/2024 15:20:28 History of total knee arthroplasty 9765904418 105 Z96.532 [id number] TRUPTI PowellT [facility] [address] [place] [address] 09/08/2024 10:42:48 09/08/2024 12:02:20 History of total knee arthroplasty 1287134459 105 Z96.613 [id number] Judd Hodgson DPT [facility] [address] [place] [address] 09/09/2024 12:51:18 09/09/2024 14:01:29 History of total knee arthroplasty 8634213677 105 Z96.652 [id number] Judd Hodgson DPT [facility] [address] [place] [address] 09/10/2024 09:22:48 09/10/2024 09:50:16 History of total knee arthroplasty 0023879463 105 Z96.641 [id number] Judd Hodgson DPT [facility] [address] [place] [address] 09/15/2024 13:51:41 09/15/2024 14:53:12 History of total knee arthroplasty 8177151912 105 Z96.265 [id number] TRUPTI PowellT [facility] [address] [place] [address] 09/16/2024 10:17:56 09/16/2024 11:34:00 History of total knee arthroplasty 6224875979 105 Z96.478 [id number] [facility] [address] [place] [address] 09/16/2024 08:21:27 09/16/2024 09:02:55 Implantation of joint prosthesis 61281546 Z47.1 Knee joint prosthesis present 9811557726 Z96.688 [id number] Judd Hodgson DPT [facility] [address] [place] [address] 09/19/2024 13:50:26 09/19/2024 14:56:09 History of total knee arthroplasty 3841664870 105 Z96.349 [id number] Judd Hodgson DPT [facility] [address] [place] [address] 2024 11:43:48 2024 14:47:12 History of total knee arthroplasty 1855326306 105 Z96.258 [id number] Judd Hodgson DPT [facility] [address] [place] [address] 09/26/2024 10:54:28 09/26/2024 12:32:30 History of total knee arthroplasty 2955679454 105 Z96.560 [id number] Judd Hodgson DPT [facility] [address] [place] [address] 09/29/2024 09:54:52 09/29/2024 10:42:56 History of total knee arthroplasty 5402281720 105 Z96.651 Health Concerns Section Related Observation LastModified by Organization Detai ls LastModified Time None Recorded Concern Status LastModified by Organization Details LastModified Time None Recorded Payers Encounter Date Sequence Insurance Name Policy Number Policy Campos Covered Member ID Campos Member ID Guarantor Name 09/29/2024 1 [facility] [employer] - TOGETHER (MEDICAID HMO) [id number] Linda Cleveland [id number] Linda Cleveland Notes Date Note Type Note Provider Name and Address Organization Details Recorded Time 09/29/2024 text/html Patient states s he has been working hard on the straightening and the back of her knee is snapping a lot and it bothers her but she is now off SPC and RW in and out of the house. She came off all pain and muscle relaxor medicine secondary to elevated liver levels. Judd Hodgson, DPT [address], [place], [address], [facility] - [place] [facility] 09/29/2024 10:42:38 OBGyn Episode No OBEpisode recorded.
--- OUTSIDE RECORDS SUMMARY | 2024-09-30 14:58 | XMS_ITS | Continuity of Care Document ---
Author Organization [place] - [facility], [facility] 2nd floor Address [address] [place] [address] Care Team Providers Care Security Officers And Guards Name Role Phone GAGE ISIDRO Primary Care Provider [phone] Assessment Encounter Date Assessment Date Assessment LastModified by Organization Details LastModified Time 09/16/2024 09/16/2024 I am seeing the patient today under the supervision of Dr. Parks who was available but who did not see the patient. HISTORY OF PRESENT ILLNESS The patient presents today for a follow-up, now 2 weeks status post manipulation under anesthesia of right total knee arthroplasty. Happy with the results. No significant complaints of pain. Doing well with P.T. ROM with therapy is 0-115 degrees. PAST MEDICAL/SURGICAL HISTORY Reviewed today, otherwise unchanged per intake sheet. REVIEW OF SYSTEMS Systemic: No fever and no chills. Cardiovascular: No chest pain or discomfort. Pulmonary: No dyspnea. PHYSICAL FINDINGS General Appearance: Well developed. ?? In no acute distress. Musculoskeletal System: Lower Leg: General/bilatera l: ?? Calves of both lower legs were not tender on palpation. Neurological: Oriented to time, place, and person. Gait And Stance: An operative sided antalgic gait was observed with assistive device. Psychiatric: Mood was appropriate to the affect. Skin inspection reveals incision intact with no evidence of infection. ROM is as above. Mild effusion noted Stable to varus/valgus stress. Extensor mechanism is intact. Normal sensation bilateral lower extremities Contralateral side shows no warmth, erythema, soft tissue swelling or effusion. TESTS X-rays ordered, obtained and reviewed at [facility] today, three views, reveals maintained alignment of the prosthetic components, no fractures or dislocations, excellent interface, patella tracking centrally. ASSESSMENT Progressing nicely 2 weeks status post manipulation under anesthesia of right total knee arthroplasty. PLAN The patient is progressing nicely and will continue total knee precautions. Continue to work on range of motion and strengthening exercises. Follow-up as scheduled for re-evaluation, sooner if there is any complications. [email or web address] Not available 09/16/2024 08:58:21 Plan of Treatment Reminders Order Date Submit Date Provider Last Modified By Organization Details Last Modified Time Details Appointments PT FOLLOW- UP 2024 12:30P M Freddie Adame, [employer] Not available Not available Not available PT FOLLOW- UP 2024 11:00A M Freddie Adame, [employer] Not available Not available Not available PT FOLLOW- UP 2024 12:00P M Judd Hodgson, DPT Not available Not available Not available POST OP 10 2024 01:40P M Justino Richter MD Not available Not available Not available PT FOLLOW- UP 2024 02:00P M Judd Hodgson, DPT Not available Not available Not available PT FOLLOW- UP 2024 12:00P M Judd Hodgson, DPT Not available Not available Not available PT FOLLOW- UP 2024 12:00P M Judd Hodgson, DPT Not available Not available Not available PT FOLLOW- UP 2024 12:00P M Judd Hodgson, DPT Not available Not available Not available PT FOLLOW- UP 2024 12:00P M Judd Hodgson DPT Not available Not available Not available PT FOLLOW- UP 2024 12:00P M Judd Hodgson, DPT Not available Not available Not available PT FOLLOW- UP 2024 12:00P M Judd Hodgson, DPT Not available Not available Not available Lab None recorde d. Referral None recorde d. Procedures None recorde d. Surgeries None recorde d. Imaging XR, knee, 3 view - 1st post op RTKR manip ab room 221 2023 024 [email or web address] [facility], [address], [address], [place], [address], 09/16/2024 11:22:11 Medication Orders None recorde d. Patient TargetsNo targets recorded. Patient InstructionsNo instructions recorded. Reason for Referral None Reported. Results Created Date Observation Date Name Description Value Unit Range Abnormal Flag Note LastModifiedBy Organization Detail LastModifiedTime 08/20/20 24 08/20/2024 XR, knee, 3 view [email or web address]:/ [email or web address] ?Encry pted=s hAaTro YD8dLq bEUv6g %2BXZw aYqtaq 0bqfl% 2Fg9IQ a4ajBk vP9nXo QUaueC m3YtLR FvZlgJ JJ8mAn HZtai3 [id number] AC0Kqa XiAWKW kKiQtr MwF INTERFACE [facility] [address], [place], [address], 08/20/2024 14:26:23 08/20/20 24 08/20/2024 XR, knee, 3 view [email or web address]:/ [email or web address] ?Encry pted=s hAaTro YD8dLq bEUv6g %2BXZw aYqtaq 0bqfl% 2Fg9IQ a4ajBk vP9nXo QUaueC m3YtLR FvZlgJ JJ8mAn HZtai3 7c3255 AC0Kqa XiAWKW kKiQtr MwF INTERFACE [facility] [address], [place], [address], 08/20/2024 14:26:25 09/10/20 24 09/10/2024 US, laisha xkelly s, lower extre mity No observ ation record ed. [facility] [place] [address], [place], [address], 09/11/2024 13:18:08 09/10/20 24 09/10/2024 US, laisha xkelly s, lower extre mity No observ ation record ed. [email or web address] [facility] [place] [address], [place], [address], 09/11/2024 13:18:09 09/16/20 24 09/16/2024 XR, knee, 3 view [email or web address]:/ [email or web address] ?Encry pted=s hAaTro YD8dLq bEUv6g %2BXZw aYqtaq 0bqfl% 2Fg9IQ a4ajBk vP9nXo QUaueC m3YtLR FvZlgJ JJ8mAn HZtai3 3n3508 AC0Kqb nuHVqa lKiQtr MwF INTERFACE [facility] [address], [place], [address], 09/16/2024 08:43:17 09/16/20 24 09/16/2024 XR, knee, 3 view [email or web address]:/ [email or web address] ?Encry pted=s hAaTro YD8dLq bEUv6g %2BXZw aYqtaq 0bqfl% 2Fg9IQ a4ajBk vP9nXo QUaueC m3YtLR FvZlgJ JJ8mAn HZtai3 6g7467 AC0Kqb nuHVqa lKiQtr MwF INTERFACE [facility] [address], [place], [address], 09/16/2024 08:43:19 Result Notes None recorded. Problems Name Problem SNOMED Code Status Onset Date Resolution Date Notes Provider Name and Address Organization Details Recorded Time No complaints 890582040 Active Status : 'A'; [facility] 09:16:26 Ankylosis of right knee joint 3316825597710 01 Active 2023 Justino Richter MD [address], [place], [address] , [facility] 4 15:12:33 Pain of right knee joint 1646124323838 00 Active 2023 JASBIR solorio [place] - [facility] 11:44:08 Swelling of bilateral lower limbs 296432205 Active 2023 JASBIR JOSÉ null, [facility] 09:07:45 Osteoarthr itis of right knee joint 8953889005779 00 Active 2023 Justino Richter MD [address], [place], [address] , [facility] 4 18:01:41 Osteoarthr itis of left knee joint 0734920356898 09 Active 2023 Justino Richter MD [address], [place], [address] , [facility] 18:01:42 Problem Notes None recorded. Procedures Surgical History Date Name Laterality Status Provider Name and Address Organization Details Recorded Time 08/25/20 76401 Therapeutic Exercise (1:1) completed Freddie Adame PTA [address], [place], [address], [facility] 08/25/2024 08:44:38 08/25/20 94201: Hot or Cold Pack completed Freddie Adame PTA [address], [place], [address], [facility] 08/25/2024 08:44:38 08/25/20 06068: Manual therapy completed Freddie Adame PTA [address], [place], [address], [facility] 08/25/2024 14:29:03 08/19/20 10721 Therapeutic Exercise (1:1) completed Freddie Adame PTA [address], [place], [address], [facility] 08/18/2024 14:25:47 08/19/20 87974: Hot or Cold Pack completed Freddie Adame PTA [address], [place], [address], [facility] 08/18/2024 14:25:47 08/19/20 45269: Manual therapy completed Freddie Adame, [employer] [address], [place], [address], [facility] 08/18/2024 14:25:47 08/14/20 35554 Therapeutic Exercise (1:1) completed Freddie Adame [employer] [address], [place], [address], [facility] 08/12/2024 16:54:25 08/14/20 10910: Hot or Cold Pack completed Freddie Adame, [employer] [address], [place], [address], [facility] 08/12/2024 16:54:25 08/14/20 78771: Manual therapy completed Freddie Adame [employer] [address], [place], [address], [facility] 08/12/2024 16:54:25 08/12/20 71797 Therapeutic Exercise (1:1) completed Freddie Adame [employer] [address], [place], [address], [facility] 08/12/2024 09:41:30 08/12/20 74490: Hot or Cold Pack completed Freddie Adame [employer] [address], [place], [address], [facility] 08/12/2024 09:41:30 08/12/20 73176: Manual therapy completed Freddie Adame, [employer] [address], [place], [address], [facility] 08/12/2024 09:41:30 08/06/20 40395 Therapeutic Exercise (1:1) completed Freddie Adame, [employer] [address], [place], [address], [facility] 08/06/2024 14:46:53 08/06/20 18192: Hot or Cold Pack completed Freddie Adame, [employer] [address], [place], [address], [facility] 08/05/2024 18:30:29 08/06/20 83740: Manual therapy completed Freddie Adame PTA [address], [place], [address], [facility] 08/05/2024 18:30:29 08/04/20 60634 Therapeutic Exercise (1:1) completed Freddie Adame PTA [address], [place], [address], [facility] 08/04/2024 09:44:54 08/04/20 46667: Hot or Cold Pack completed Freddie Adame PTA [address], [place], [address], [facility] 08/04/2024 09:44:54 08/04/20 51497: Manual therapy completed Freddie Adame PTA [address], [place], [address], [facility] 08/04/2024 09:44:54 07/31/20 33639 Therapeutic Exercise (1:1) completed Freddie Adame PTA [address], [place], [address], [facility] 07/31/2024 14:39:01 07/31/20 20913: Hot or Cold Pack completed Freddie Adame PTA [address], [place], [address], [facility] 07/30/2024 10:16:09 07/31/20 94801: Manual therapy completed Freddie Adame PTA [address], [place], [address], [facility] 07/30/2024 10:16:09 07/29/20 63353 Therapeutic Exercise (1:1) completed Judd Hodgson DPT [address], [place], [address], [facility] 07/29/2024 18:12:01 07/29/20 93399: Hot or Cold Pack completed Judd Hodgson DPT [address] [facility], [place], [address], [facility] 07/29/2024 18:12:13 07/29/20 63942: Manual therapy completed Judd Hodgson DPT [address], [place], [address], [facility] 07/29/2024 18:12:06 07/24/20 85959 Therapeutic Exercise (1:1) completed Judd Hodgson DPT [address] [facility], [place], [address], [facility] 07/23/2024 14:29:24 07/24/20 41197: Low complexity PT Eval completed Judd Hodgson DPT [address], [place], [address], [facility] 07/23/2024 14:29:19 02/01/20 Zilretta Knee Injection, Bilateral completed Justino Richter MD [address], [place], [address], [facility] 02/01/2024 18:01:54 Imaging Results None recorded. [...] and Address Organization Details Last Updated DateTime 09/16/2024 144.78 cm 40.7 kg/m2 59343.37 g JASBIR FranciscoHEUREUX [facility] 09/16/2024 08:30:55 Social History Question Answer Notes LastModified by Organizat ion Details LastModified Time Tobacco Smoking Status Never Smoker Kathleen Millie solorio [facility] 07/24/2024 14:15:28 [...] SNOMED-CT Code Diagnosis ICD10 Code Diagnosis Note [id number] O[facility] [address] [place] [address] 08/19/2024 13:39:45 08/19/2024 14:44:19 History of total knee arthroplasty 8863621156 105 Z96.978 [id number] MD Michelle Portillo [address] [facility] [place] [address] 08/20/2024 13:30:39 09/08/2024 12:12:38 History of right total knee replacement 8167422342 894220 Z96.651 Ankylosis of right knee joint 2174724443 30319 M24.177 [id number] [facility] [address] [place] [address] 08/25/2024 13:38:40 08/25/2024 14:30:33 History of total knee arthroplasty 2352463677 105 Z96.219 [id number] O[facility]AN [facility]on [facility] [address] [place] [address] 08/27/2024 13:22:31 08/27/2024 14:42:09 History of total knee arthroplasty 0169065103 105 Z96.118 [id number] Judd Hodgson DPT [facility] [address] [place] [address] 09/01/2024 09:07:08 09/01/2024 10:21:59 History of total knee arthroplasty 6406747559 105 Z96.440 [id number] TRUPTI PowellT [facility] [address] [place] [address] 09/02/2024 16:36:40 09/02/2024 17:24:55 History of total knee arthroplasty 0068954079 105 Z96.571 [id number] TRUPTI PowellT [facility] [address] [place] [address] 09/03/2024 13:28:29 09/03/2024 14:28:52 History of total knee arthroplasty 7860080256 105 Z96.263 [id number] Judd Hodgson DPT [facility] [address] [place] [address] 09/04/2024 10:39:01 09/05/2024 08:26:23 History of total knee arthroplasty 7935963436 105 Z96.081 [id number] Judd Hodgson DPT [facility] [address] [place] [address] 09/05/2024 14:00:30 09/05/2024 15:20:28 History of total knee arthroplasty 3088879215 105 Z96.759 [id number] Judd Hodgson DPT [facility] [address] [place] [address] 09/08/2024 10:42:48 09/08/2024 12:02:20 History of total knee arthroplasty 6145889780 105 Z96.423 [id number] TRUPTI PoewllT [facility] [address] [place] [address] 09/09/2024 12:51:18 09/09/2024 14:01:29 History of total knee arthroplasty 7573211849 105 Z96.339 [id number] OSMAN [facility] [address] [place] [address] 09/10/2024 09:22:48 09/10/2024 09:50:16 History of total knee arthroplasty 1097400689 105 Z96.496 [id number] O[facility]AN [facility] [address] [place] [address] 09/15/2024 13:51:41 09/15/2024 14:53:12 History of total knee arthroplasty 2334045931 105 Z96.673 [id number] [facility] [address] [place] [address] 09/16/2024 10:17:56 09/16/2024 11:34:00 History of total knee arthroplasty 5108546255 105 Z96.884 [id number] BHARGAV Hendrickson 2nd floor [address] [place] [address] 09/16/2024 08:21:27 09/16/2024 09:02:55 Implantation of joint prosthesis 52117375 Z47.1 Knee joint prosthesis present 2363841323 02 Z96.659 Health Concerns Section Related Observation LastModified by Organization Detai ls LastModified Time None Recorded Concern Status LastModified by Organization Details LastModified Time None Recorded Payers Encounter Date Sequence Insurance Name Policy Number Policy Campos Covered Member ID Campos Member ID Guarantor Name 09/16/2024 1 [facility] [employer] - TOGETHER (MEDICAID HMO) [id number] Linda Cleveland [id number] Linda Cleveland Notes Date Note Type Note Provider Name and Address Organization Details Recorded Time 09/16/2024 text/html Patient states t he PA told her to wear compression sock throughout the day as well as start muscle relaxor but overall he was happy with my motion. Judd Hodgson DPT [address], [place], [address], [facility] - [facility] 09/16/2024 11:32:52 OBGyn Episode No OBEpisode recorded.
--- OUTSIDE RECORDS SUMMARY | 2024-09-30 14:59 | XMS_ITS | Continuity of Care Document ---
Author Organization [facility] [address] [place] [address] Care Team Providers Care Collar Folder Operator Name Role Phone GAGE ISIDRO Primary Care Provider Assessment Encounter Date Assessment Date Assessment LastModified by Organization Details LastModified Time 09/01/2024 09/01/2024 Assessment: Patient had significant improvement in ROM compared to pre BLAISE. She is still using RW and has decreased flexion in swing. Plan: Continue POC. Progress to tolerance [email or web address] Not available 09/01/2024 10:20:51 Plan of Treatment Reminders Order Date Submit Date Provider Last Modified By Organization Details Last Modified Time Details Appointments PT FOLLOW -UP 025 12:30PM Freddie Adame [employer] Not available Not available Not available PT FOLLOW -UP 025 11:00AM Freddie Adame [employer] Not available Not available Not available PT FOLLOW -UP 025 12:00PM TRUPTI PowellT Not available Not available Not available POST OP 10 025 01:40PM Justino Richter MD Not available Not available Not available PT FOLLOW -UP 025 02:00PM Judd Hodgson DPT Not available Not available Not available PT FOLLOW -UP 025 12:00PM TRUPTI PowellT Not available Not available Not available PT FOLLOW -UP 025 12:00PM Judd Hodgson DPT Not available Not available Not available PT FOLLOW -UP 025 12:00PM TRUPTI PowellT Not available Not available Not available PT FOLLOW -UP 025 12:00PM Judd Gokul DPT Not available Not available Not available PT FOLLOW -UP 025 12:00PM Judd Hodgson DPT Not available Not available Not available PT FOLLOW -UP 025 12:00PM Judd Gokul DPT Not available Not available Not available [...] 0bqfl% 2Fg9IQ a4ajBk vP9nXo QUaueC m3YtLR FvZlg JJ8mAn HZtai3 [id number] AC0Kqa XiAWKW kKiQtr MwF INTERFACE [facility] [address], [place], [address], 08/20/2024 14:26:23 08/20/20 24 08/20/2024 XR, knee, 3 view [email or web address]:/ [email or web address] ?Encry pted=s hAaTro YD8dLq bEUv6g %2BXZw aYqtaq 0bqfl% 2Fg9IQ a4ajBk vP9nXo QUaueC m3YtLR FvZl J8Grant Hospitaltai3 [id number] AC0Kqa XiAWKW kKiQtr MwF INTERFACE [facility] [address], [place], [address], 08/20/2024 14:26:25 09/10/20 24 09/10/2024 US, duple x, venou s, lower extre mity No observ ation record ed. [email or web address] [facility] [address] [facility] [address], [place], [address], 09/11/2024 13:18:08 09/10/20 24 09/10/2024 US, laisha x, venou s, lower extre mity No observ ation record ed. [email or web address] [facility] [address] [facility] [address], [place], [address], 09/11/2024 13:18:09 09/16/20 24 09/16/2024 XR, knee, 3 view [email or web address]:/ [email or web address] ?Encry pted=s hAaTro YD8dLq bEUv6g %2BXZw aYqtaq 0bqfl% 2Fg9IQ a4ajBk vP9nXo QUaueC m3YtLR FvZlgJ JJ8mAn HZtai3 0h9728 AC0Kqb nuHVqa lKiQtr MwF INTERFACE [facility] [address] [facility], [place], [address], 09/16/2024 08:43:17 09/16/20 24 09/16/2024 XR, knee, 3 view [email or web address]:/ [email or web address] ?Encry pted=s hAaTro YD8dLq bEUv6g %2BXZw aYqtaq 0bqfl% 2Fg9IQ a4ajBk vP9nXo QUaueC m3YtLR FvZlg JJ8mAn HZtai3 [id number] AC0Kqb nuHVqa lKiQtr MwF INTERFACE [facility] [address] [facility] [address], [place], [address], 09/16/2024 08:43:19 Result Notes None recorded. Problems Name Problem SNOMED Code Status Onset Date Resolution Date Notes Provider Name and Address Organization Details Recorded Time No complaints 631019834 Active Status : 'A'; [facility] 4 09:16:26 Ankylosis of right knee joint 5532730213000 01 Active 2023 Justino Richter MD [address], [place], [address] , [facility] 4 15:12:33 Pain of right knee joint 5793442690977 00 Active 2023 KAYLIA L'HEUREUX null, [facility] 4 11:44:08 Swelling of bilateral lower limbs 345611395 Active 2023 KAYLIA L'HEUREUX null, [facility] 4 09:07:45 Osteoarthr itis of right knee joint 7170081521107 00 Active 2023 Justino Richter MD [address], [place], [address] , [facility] 4 18:01:41 Osteoarthr itis of left knee joint 0352436015349 09 Active 2023 Justino Richter MD [address], [place], [address] , [facility] 4 18:01:42 Problem Notes None recorded. Procedures Surgical History Date Name Laterality Status Provider Name and Address Organization Details Recorded Time 08/25/20 97184 Therapeutic Exercise (1:1) completed Freddie Adame PTA [address], [place], [address], [facility] 08/25/2024 08:44:38 08/25/20 37997: Hot or Cold Pack completed Freddie Adame PTA [address], [place], [address], [facility] 08/25/2024 08:44:38 08/25/20 86814: Manual therapy completed Freddie Adame PTA [address], [place], [address], [facility] 08/25/2024 14:29:03 08/19/20 25048 Therapeutic Exercise (1:1) completed Freddie Adame, [employer] [address], [place], [address], [facility] 08/18/2024 14:25:47 08/19/20 99431: Hot or Cold Pack completed Freddie Adame, [employer] [address], [place], [address], [facility] 08/18/2024 14:25:47 08/19/20 94889: Manual therapy completed Freddie Adame [employer] [address], [place], [address], [facility] 08/18/2024 14:25:47 08/14/20 38976 Therapeutic Exercise (1:1) completed Freddie Adame [employer] [address], [place], [address], [facility] 08/12/2024 16:54:25 08/14/20 84280: Hot or Cold Pack completed Freddie Adame, [employer] [address], [place], [address], [facility] 08/12/2024 16:54:25 08/14/20 31498: Manual therapy completed Freddie Adame [employer] [address], [place], [address], [facility] 08/12/2024 16:54:25 08/12/20 49962 Therapeutic Exercise (1:1) completed Freddie Adame [employer] [address], [place], [address], [facility] 08/12/2024 09:41:30 08/12/20 96557: Hot or Cold Pack completed Freddie Adame, COL[employer] [address], [place], [address], [facility] 08/12/2024 09:41:30 08/12/20 68882: Manual therapy completed Freddie Adame, COL[employer] [address], [place], [address], [facility] 08/12/2024 09:41:30 08/06/20 98834 Therapeutic Exercise (1:1) completed Freddie Adame [employer] [address], [place], [address], [facility] 08/06/2024 14:46:53 08/06/20 49470: Hot or Cold Pack completed Freddie Adame [employer] [address], [place], [address], [facility] 08/05/2024 18:30:29 08/06/20 16054: Manual therapy completed Freddie Adame [employer] [address], [place], [address], [facility] 08/05/2024 18:30:29 08/04/20 39126 Therapeutic Exercise (1:1) completed Freddie Adame [employer] [address], [place], [address], [facility] 08/04/2024 09:44:54 08/04/20 80742: Hot or Cold Pack completed Freddie Adame, COL[employer] [address], [place], [address], [facility] 08/04/2024 09:44:54 08/04/20 11790: Manual therapy completed Freddie Adame [employer] [address], [place], [address], [facility] 08/04/2024 09:44:54 07/31/20 79666 Therapeutic Exercise (1:1) completed Freddie Adame, COL[employer] [address], [place], [address], [facility] 07/31/2024 14:39:01 07/31/20 53374: Hot or Cold Pack completed Freddie Adame, COL[employer] [address], [place], [address], [facility] 07/30/2024 10:16:09 07/31/20 59828: Manual therapy completed Freddie Adame, COL[employer] [address], [place], [address], [facility] 07/30/2024 10:16:09 07/29/20 24 84611 Therapeutic Exercise (1:1) completed Judd Hodgson DPT [address], [place], [address], [facility] 07/29/2024 18:12:01 07/29/20 46634: Hot or Cold Pack completed Judd Hodgson DPT [address], [place], [address], [facility] 07/29/2024 18:12:13 07/29/20 86514: Manual therapy completed Judd Hodgson DPT [address], [place], [address], [facility] 07/29/2024 18:12:06 07/24/20 24 52466 Therapeutic Exercise (1:1) completed Judd Hodgson DPT [address], [place], [address], [facility] 07/23/2024 14:29:24 07/24/20 24 38703: Low complexity PT Eval completed Judd Hodgson DPT [address], [place], [address], [facility] 07/23/2024 14:29:19 02/01/20 24 Zilretta Knee Injection, Bilateral completed Justino Richter MD [address], [place], [address], [facility] 02/01/2024 18:01:54 Imaging Results [...] Status Never Smoker Kathleen solorio [place] - [facility] 07/24/2024 14:15:28 Do You Or [...] SNOMED-CT Code Diagnosis ICD10 Code Diagnosis Note [id number] OSMAN Powell PT [address] [place] [address] 08/04/2024 13:38:13 08/04/2024 15:48:53 History of total knee arthroplasty 3168930498 105 Z96.877 [id number] O[facility] [address] [place] [address] 08/06/2024 13:43:11 08/06/2024 14:47:31 History of total knee arthroplasty 5015851518 105 Z96.435 [id number] BHARGAV Fox [address] [place] [address] 08/07/2024 12:52:14 08/20/2024 12:07:22 History of right total knee replacement 6423788826 555110 Z96.279 [id number] Judd Hodgson DPT [facility] [address] [place] [address] 08/12/2024 13:06:55 08/12/2024 14:57:39 History of total knee arthroplasty 9819362811 105 Z96.969 [id number] Judd Hodgson DPT [facility] [address] [place] [address] 08/14/2024 13:37:55 08/14/2024 14:39:00 History of total knee arthroplasty 7519401816 105 Z96.574 [id number] Judd Hodgson DPT [facility] [address] [place] [address] 08/19/2024 13:39:45 08/19/2024 14:44:19 History of total knee arthroplasty 0972473664 105 Z96.809 [id number] Justino CastilloersMD Martinez 2nd floor [address] [place] [address] 08/20/2024 13:30:39 09/08/2024 12:12:38 History of right total knee replacement 2185239832 295354 Z96.651 Ankylosis of right knee joint 5429913455 70207 M24.353 [id number] Judd Hodgson DPT [facility] [address] [place] [address] 08/25/2024 13:38:40 08/25/2024 14:30:33 History of total knee arthroplasty 8674138582 105 Z96.919 [id number] Judd Hodgson DPT [facility] [address] [place] [address] 08/27/2024 13:22:31 08/27/2024 14:42:09 History of total knee arthroplasty 2447099600 105 Z96.649 [id number] Judd Hodgson DPT [facility] [address] [place] [address] 09/01/2024 09:07:08 09/01/2024 10:21:59 History of total knee arthroplasty 0263894358 105 Z96.651 Health Concerns Section Related Observation LastModified by Organization Detai ls LastModified Time None Recorded Concern Status LastModified by Organization Details LastModified Time None Recorded Payers Encounter Date Sequence Insurance Name Policy Number Policy Campos Covered Member ID Campos Member ID Guarantor Name 09/01/[address] [facility] [employer] - TOGETHER (MEDICAID HMO) [id number] Linda Cleveland [id number] Linda Cleveland Notes Date Note Type Note Provider Name and Address Organization Details Recorded Time 09/01/2024 text/html Patient just had RAYNA this morning around 7 am. The pain is around 5/10 coming. Judd Hodgson, DPT [address] [facility] [address], [place], [address], [facility] 09/01/2024 10:21:51 OBGyn Episode No OBEpisode recorded.
--- OUTSIDE RECORDS SUMMARY | 2024-09-30 14:59 | XMS_ITS | Continuity of Care Document ---
Author Organization [facility] [address] [place] [address] Care Team Providers Care Oven Tender Name Role Phone GAGE ISIDRO Primary Care Provider Assessment Encounter Date Assessment Date Assessment LastModified by Organization Details LastModified Time 09/02/2024 09/02/2024 Assessment: Patient came in tired and sore so ther ex was modified but overall patient maintained ROM with mild-mod pain at end range. Patient has difficulty completing heel to toe gait and has a tendency to have an inverted ankle. She is still using her RW out of the house and even at times in the house. Plan: Continue POC. michelle Not available 09/02/2024 17:23:14 Plan of Treatment Reminders Order Date Submit Date Provider Last Modified By Organization Details Last Modified Time Details Appointments PT FOLLOW -UP 025 12:30PM Freddie Adame ENGINE PILOT Not available Not available Not available PT FOLLOW -UP 025 11:00AM Freddie Adame PTA Not available Not available [...] available PT FOLLOW -UP 025 12:00PM Judd Catjakis, DPT Not available Not available Not available [...] a4ajBk vP9nXo QUaueC m3YtLR FvZlgJ JJ8mAn HZtai3 [id number] AC0Kqa XiAWKW kKiQtr MwF INTERFACE [facility] [address], [place], [address], 08/20/2024 14:26:23 08/20/20 24 08/20/2024 XR, knee, 3 view [email or web address] ?Encry pted=s hAaTro YD8dLq bEUv6g %2BXZw aYqtaq 0bqfl% 2Fg9IQ a4ajBk vP9nXo QUaueC m3YtLR FvZlgJ JJ8mAn HZtai3 2u8330 AC0Kqa XiAWKW kKiQtr MwF INTERFACE [facility] [address], [place], [address], 08/20/2024 14:26:25 09/10/20 24 09/10/2024 US, duple x, venou s, lower extre mity No observ ation record ed. [facility] [address], [place], [address], 09/11/2024 13:18:08 09/10/20 24 09/10/2024 US, duple x, venou s, lower extre mity No observ ation record ed. [facility] [address], [place], [address], 09/11/2024 13:18:09 09/16/20 24 09/16/2024 XR, knee, 3 view [email or web address] ?Encry pted=s hAaTro YD8dLq bEUv6g %2BXZw aYqtaq 0bqfl% 2Fg9IQ a4ajBk vP9nXo QUaueC m3YtLR FvZlgJ J8[place] HZtai3 2i0237 AC0Kqb nuHVqa lKiQtr MwF INTERFACE [facility] [address], [place], [address], 09/16/2024 08:43:17 09/16/20 24 09/16/2024 XR, knee, 3 view [email or web address] ?Encry pted=s hAaTro YD8dLq bEUv6g %2BXZw aYqtaq 0bqfl% 2Fg9IQ a4ajBk vP9nXo QUaueC m3YtLR FvZl JJ8[place] HZtai3 9f6326 AC0Kqb nuHVqa lKiQtr MwF INTERFACE [facility] [address] [facility] [address], [place], [address], 09/16/2024 08:43:19 Result Notes None recorded. Problems Name Problem SNOMED Code Status Onset Date Resolution Date Notes Provider Name and Address Organization Details Recorded Time No complaints [id number] Active Status : 'A'; Not Available [facility] 4 09:16:26 Ankylosis of right knee joint 9949910764999 01 Active 2023 Justino Richter MD [address], [place], [address] , [facility] 4 15:12:33 Pain of right knee joint 7957168066420 00 Active 2023 KAYLIA L'HEUREUX null, [facility] 4 11:44:08 Swelling of bilateral lower limbs 604603571 Active 2023 KAYLIA L'HEUREUX null, [facility] 4 09:07:45 Osteoarthr itis of right knee joint 6138515870679 00 Active 2023 Justino Richter MD [address], [place], [address] , [facility] 4 18:01:41 Osteoarthr itis of left knee joint 7131996797930 09 Active 2023 Justino Richter MD [address], [place], [address] , [facility] 4 18:01:42 Problem Notes None recorded. Procedures Surgical History Date Name Laterality Status Provider Name and Address Organization Details Recorded Time 08/25/20 49806 Therapeutic Exercise (1:1) completed Freddie Adame PTA [address] [address], [place], [address], [facility] 08/25/2024 08:44:38 08/25/20 34134: Hot or Cold Pack completed Freddie Adame PTA [address], [place], [address], [facility] 08/25/2024 08:44:38 08/25/20 18989: Manual therapy completed Freddie Adame PTA [address], [place], [address], [facility] 08/25/2024 14:29:03 08/19/20 45198 Therapeutic Exercise (1:1) completed Freddie Adame PTA [address], [place], [address], [facility] 08/18/2024 14:25:47 08/19/20 87002: Hot or Cold Pack completed Freddie Adame ENGINE PILOT [address], [place], [address], [facility] 08/18/2024 14:25:47 08/19/20 77733: Manual therapy completed Freddie Adame ENGINE PILOT [address], [place], [address], [facility] 08/18/2024 14:25:47 08/14/20 54009 Therapeutic Exercise (1:1) completed Freddie Adame PTA [address], [place], [address], [facility] 08/12/2024 16:54:25 08/14/20 93635: Hot or Cold Pack completed Freddie Adame PTA [address], [place], [address], [facility] 08/12/2024 16:54:25 08/14/20 70909: Manual therapy completed Freddie Adame ENGINE PILOT [address], [place], [address], [facility] 08/12/2024 16:54:25 08/12/20 87284 Therapeutic Exercise (1:1) completed Freddie Adame ENGINE PILOT [address], [place], [address], [facility] 08/12/2024 09:41:30 08/12/20 66411: Hot or Cold Pack completed Freddie Adame, ENGINE PILOT [address], [place], [address], [facility] 08/12/2024 09:41:30 08/12/20 47042: Manual therapy completed Freddie Adame PTA [address], [place], [address], [facility] 08/12/2024 09:41:30 08/06/20 14066 Therapeutic Exercise (1:1) completed Freddie Adame PTA [address], [place], [address], [facility] 08/06/2024 14:46:53 08/06/20 54941: Hot or Cold Pack completed Freddie Adame ENGINE PILOT [address], [place], [address], [facility] 08/05/2024 18:30:29 08/06/20 00743: Manual therapy completed Freddie Adame PTA [address], [place], [address], [facility] 08/05/2024 18:30:29 08/04/20 66201 Therapeutic Exercise (1:1) completed Freddie Adame PTA [address], [place], [address], [facility] 08/04/2024 09:44:54 08/04/20 72454: Hot or Cold Pack completed Freddie Adame PTA [address], [place], [address], [facility] 08/04/2024 09:44:54 08/04/20 51462: Manual therapy completed Freddie Adame PTA [address], [place], [address], [facility] 08/04/2024 09:44:54 07/31/20 72646 Therapeutic Exercise (1:1) completed Freddie Adame ENGINE PILOT [address], [place], [address], [facility] 07/31/2024 14:39:01 07/31/20 96620: Hot or Cold Pack completed Freddie Adame ENGINE PILOT [address], [place], [address], [facility] 07/30/2024 10:16:09 07/31/20 12032: Manual therapy completed Freddie Adame PTA [address] [facility], [place], [address], [facility] 07/30/2024 10:16:09 07/29/20 24 59738 Therapeutic Exercise (1:1) completed Judd Hodgson DPT [address] [facility], [place], [address], [facility] 07/29/2024 18:12:01 07/29/20 85595: Hot or Cold Pack completed Judd Hodgson DPT [address] [facility], [place], [address], [facility] 07/29/2024 18:12:13 07/29/20 62733: Manual therapy completed Judd Hodgson DPT [address], [place], [address], [facility] 07/29/2024 18:12:06 07/24/20 79821 Therapeutic Exercise (1:1) completed Judd Hodgson DPT [address] [facility], [place], [address], [facility] 07/23/2024 14:29:24 07/24/20 24 98121: Low complexity PT Eval completed Judd Hodgson DPT [address] [facility], [place], [address], [facility] 07/23/2024 14:29:19 02/01/20 24 Zilretta Knee Injection, Bilateral completed Justino Richter MD [address] [facility], [place], [address], [facility] 02/01/2024 18:01:54 Imaging Results None [...] Status Never Smoker Kathleen solorio [place] - [facility] 07/24/2024 14:15:28 Do You Or [...] SNOMED-CT Code Diagnosis ICD10 Code Diagnosis Note [id number] [facility] [address] [place] [address] 08/04/2024 13:38:13 08/04/2024 15:48:53 History of total knee arthroplasty 7360807841 105 Z96.641 [id number] [facility] [address] [place] [address] 08/06/2024 13:43:11 08/06/2024 14:47:31 History of total knee arthroplasty 1545196487 105 Z96.962 [id number] BHARGAV Fox [address] [place] [address] 08/07/2024 12:52:14 08/20/2024 12:07:22 History of right total knee replacement 8887474586 474488 Z96.307 [id number] Judd Hodgson DPT [facility] [address] [place] [address] 08/12/2024 13:06:55 08/12/2024 14:57:39 History of total knee arthroplasty 3470670858 105 Z96.450 [id number] Judd Hodgson DPT [facility] [address] [place] [address] 08/14/2024 13:37:55 08/14/2024 14:39:00 History of total knee arthroplasty 7614598702 105 Z96.388 [id number] Judd Hodgson DPT [facility] [address] [place] [address] 08/19/2024 13:39:45 08/19/2024 14:44:19 History of total knee arthroplasty 9450302124 105 Z96.070 [id number] MD Michelle Portillo [address] floor [address] [place] [address] 08/20/2024 13:30:39 09/08/2024 12:12:38 History of right total knee replacement 3138303462 073199 Z96.651 Ankylosis of right knee joint 0843675457 13124 M24.503 [id number] Judd Hodgson DPT [facility] [address] [place] [address] 08/25/2024 13:38:40 08/25/2024 14:30:33 History of total knee arthroplasty 6407210947 105 Z96.559 [id number] Judd Hodgson DPT [facility] [address] [place] [address] 08/27/2024 13:22:31 08/27/2024 14:42:09 History of total knee arthroplasty 7596319545 105 Z96.994 [id number] Judd Hodgson DPT [facility] [address] [place] [address] 09/01/2024 09:07:08 09/01/2024 10:21:59 History of total knee arthroplasty 9789630384 105 Z96.238 [id number] [facility] [address] [facility] [place] [place] [address] 09/02/2024 16:36:40 09/02/2024 17:24:55 History of total knee arthroplasty 3664868558 105 Z96.651 Health Concerns Section Related Observation LastModified by Organization Detai ls LastModified Time None Recorded Concern Status LastModified by Organization Details LastModified Time None Recorded Payers Encounter Date Sequence Insurance Name Policy Number Policy Campos Covered Member ID Campos Member ID Guarantor Name 09/02/2024 1 [employer] - TOGETHER (MEDICAID HMO) [id number] Linda Cleveland [id number] Linda Cleveland Notes Date Note Type Note Provider Name and Address Organization Details Recorded Time 09/02/2024 text/html Patient reports that she spent all day in the ER after falling on her face after being dizzy when waking up this morning. They cleared her after r/o blood clots. She does state the CPM was delivered today but has not gotten a chance to use it because she was in the ER. Judd Hodgson DPT [address], [place], [address], [facility] 09/02/2024 17:24:49 OBGyn Episode No OBEpisode recorded.
--- OUTSIDE RECORDS SUMMARY | 2024-09-30 15:00 | XMS_ITS | Continuity of Care Document ---
Author Organization [facility], [facility] 2nd floor Address [address] [place] [address] Care Team Providers Care Deputy Court Name Role Phone GAGE ISIDRO Primary Care Provider Assessment No assessment recorded. Plan of Treatment Reminders Order Date Submit Date Provider Last Modified By Organization Details Last Modified Time Details Appointments PT FOLLOW -UP 025 12:30PM Freddie Adame TERMINAL COMPUTER OPERATOR Not available Not available Not available PT FOLLOW -UP 025 11:00AM Freddie Adame TERMINAL COMPUTER OPERATOR Not available Not available Not available PT [...] LastModifiedTime 07/24/2007/24/2024 XR, knee, 3 view [email or web address] ?Encry pted=s hAaTro YD8dLq bEUv6g %2BXZw aYqtaq 0bqfl% 2Fg9IQ a4ajBk vP9nXo QUaueC m3YtLR FvZl JJ8mAn HZtai3 8t4503 AC0Kqa HmEUKq vKiQtr MwF INTERFACE [facility] [address] [facility] [address], [place], [address], 07/24/2024 14:45:59 07/24/20 24 07/24/2024 XR, knee, 3 view [email or web address] ?Encry pted=s hAaTro YD8dLq bEUv6g %2BXZw aYqtaq 0bqfl% 2Fg9IQ a4ajBk vP9nXo QUaueC m3YtLR Zl [facility] HZtai3 2c8188 AC0Kqa HmEUKq vKiQtr MwF INTERFACE [facility] [address] [facility] [address], [place], [address], 07/24/2024 14:46:01 08/20/20 24 08/20/2024 XR, knee, 3 view [email or web address]:/ [email or web address] ?Encry pted=s hAaTro YD8dLq bEUv6g %2BXZw aYqtaq 0bqfl% 2Fg9IQ a4ajBk vP9nXo QUaueC m3YtLR FvZlg JJ8mAn HZtai3 8i9139 AC0Kqa XiAWKW kKiQtr MwF INTERFACE [facility] [address], [place], [address], 08/20/2024 14:26:23 08/20/20 24 08/20/2024 XR, knee, 3 view [email or web address]:/ [email or web address] ?Encry pted=s hAaTro YD8dLq bEUv6g %2BXZw aYqtaq 0bqfl% 2Fg9IQ a4ajBk vP9nXo QUaueC m3YtLR FvZlgJ [facility] HZtai3 7b7385 AC0Kqa XiAWKW kKiQtr MwF INTERFACE [facility] [address] [place] [address], [place], [address], 08/20/2024 14:26:25 09/10/20 24 09/10/2024 US, duple x, venou s, lower extre mity No observ ation record ed. [facility] [place] [address], [address], 09/11/2024 13:18:08 09/10/20 24 09/10/2024 US, duple x, venou s, lower extre mity No observ ation record ed. [facility] [place] [address], [address], 09/11/2024 13:18:09 09/16/20 24 09/16/2024 XR, knee, 3 view [email or web address]:/ [email or web address] ?Encry pted=s hAaTro YD8dLq bEUv6g %2BXZw aYqtaq 0bqfl% 2Fg9IQ a4ajBk vP9nXo QUaueC m3YtLR FvZlgJ JJ8mAn HZtai3 1w7300 AC0Kqb nuHVqa lKiQtr MwF INTERFACE [facility] [address], [place], [address], 09/16/2024 08:43:17 09/16/20 24 09/16/2024 XR, knee, 3 view [email or web address]:/ [email or web address] ?Encry pted=s hAaTro YD8dLq bEUv6g %2BXZw aYqtaq 0bqfl% 2Fg9IQ a4ajBk vP9nXo QUaueC m3YtLR FvZlgJ JJ8mAn HZtai3 7d3554 AC0Kqb nuHVqa lKiQtr MwF INTERFACE [facility] [address], [place], [address], 09/16/2024 08:43:19 Result Notes None recorded. Problems Name Problem SNOMED Code Status Onset Date Resolution Date Notes Provider Name and Address Organization Details Recorded Time No complaints 624523306 Active Status : 'A'; [facility] Available [facility] 4 09:16:26 Ankylosis of right knee joint 2298783852542 01 Active 2023 Justino Richter MD [address], [place], [address] , [facility] 4 15:12:33 Pain of right knee joint 9124665602692 00 Active 2023 KAYLIA L'HEUREUX null, [facility] 4 11:44:08 Swelling of bilateral lower limbs 055437901 Active 2023 KAYLIA L'HEUREUX null, [place] [facility] 4 09:07:45 Osteoarthr itis of right knee joint 5514818554251 00 Active 2023 Justino Richter MD [address], [place], [address] , [facility] 4 18:01:41 Osteoarthr itis of left knee joint 9428708450833 09 Active 2023 Justino Richter MD [address], [place], [address] , [facility] 18:01:42 Problem Notes None recorded. Procedures Surgical History Date Name Laterality Status Provider Name and Address Organization Details Recorded Time 08/25/20 85285 Therapeutic Exercise (1:1) completed Freddie Adame PTA [address], [place], [address], [facility] 08/25/2024 08:44:38 08/25/20 17516: Hot or Cold Pack completed Freddie Adame PTA [address], [place], [address], [facility] 08/25/2024 08:44:38 08/25/20 86726: Manual therapy completed Freddie Adame PTA [address], [place], [address], [facility] 08/25/2024 14:29:03 08/19/20 48819 Therapeutic Exercise (1:1) completed Freddie Adame PTA [address], [place], [address], [facility] 08/18/2024 14:25:47 08/19/20 26610: Hot or Cold Pack completed Freddie Adame PTA [address], [place], [address], [facility] 08/18/2024 14:25:47 08/19/20 81377: Manual therapy completed Freddie Adame PTA [address], [place], [address], [facility] 08/18/2024 14:25:47 08/14/20 22551 Therapeutic Exercise (1:1) completed Freddie Adame PTA [address], [place], [address], [facility] 08/12/2024 16:54:25 08/14/20 51521: Hot or Cold Pack completed Freddie Adame PTA [address], [place], [address], [facility] 08/12/2024 16:54:25 08/14/20 19435: Manual therapy completed Freddie Adame TERMINAL COMPUTER OPERATOR [address], [place], [address], [facility] 08/12/2024 16:54:25 08/12/20 32400 Therapeutic Exercise (1:1) completed Freddie Adame TERMINAL COMPUTER OPERATOR [address], [place], [address], [facility] 08/12/2024 09:41:30 08/12/20 09507: Hot or Cold Pack completed Freddie Adame TERMINAL COMPUTER OPERATOR [address], [place], [address], [facility] 08/12/2024 09:41:30 08/12/20 60341: Manual therapy completed Freddie Adame PTA [address], [place], [address], [facility] 08/12/2024 09:41:30 08/06/20 51749 Therapeutic Exercise (1:1) completed Freddie Adame PTA [address], [place], [address], [facility] 08/06/2024 14:46:53 08/06/20 05805: Hot or Cold Pack completed Freddie Adame PTA [address], [place], [address], [facility] 08/05/2024 18:30:29 08/06/20 24331: Manual therapy completed Freddie Adame TERMINAL COMPUTER OPERATOR [address], [place], [address], [facility] 08/05/2024 18:30:29 08/04/20 37213 Therapeutic Exercise (1:1) completed Freddie Adame TERMINAL COMPUTER OPERATOR [address], [place], [address], [facility] 08/04/2024 09:44:54 08/04/20 04370: Hot or Cold Pack completed Freddie Adame PTA [address], [place], [address], [facility] 08/04/2024 09:44:54 08/04/20 54281: Manual therapy completed Freddie Adame PTA [address], [place], [address], [facility] 08/04/2024 09:44:54 07/31/20 73684 Therapeutic Exercise (1:1) completed Freddie Adame PTA [address], [place], [address], [facility] 07/31/2024 14:39:01 07/31/20 08297: Hot or Cold Pack completed Freddie Adame PTA [address], [place], [address], [facility] 07/30/2024 10:16:09 07/31/20 79286: Manual therapy completed Freddie Adame PTA [address], [place], [address], [facility] 07/30/2024 10:16:09 07/29/20 13881 Therapeutic Exercise (1:1) completed Judd Hodgson DPT [address], [place], [address], [facility] 07/29/2024 18:12:01 07/29/20 84176: Hot or Cold Pack completed Judd Hodgson DPT [address], [place], [address], [facility] 07/29/2024 18:12:13 07/29/20 26803: Manual therapy completed Judd Hodgson DPT [address], [place], [address], [facility] 07/29/2024 18:12:06 07/24/20 74708 Therapeutic Exercise (1:1) completed Judd Hodgson DPT [address], [place], [address], [facility] 07/23/2024 14:29:24 07/24/20 07805: Low complexity PT Eval completed Judd Hodgson DPT [address], [place], [address], [facility] 07/23/2024 14:29:19 02/01/20 Zilretta Knee Injection, Bilateral completed Justino Richter MD [address], [place], [address], [facility] 02/01/2024 18:01:54 Imaging Results None recorded. [...] and Address Organization Details Last Updated DateTime 08/07/2024 144.78 cm 40.7 kg/m2 84583.37 g Ally Campos [facility] 08/07/2024 13:02:07 Social History Question Answer Notes LastModified by Organizat ion Details LastModified Time Tobacco Smoking Status Never Smoker Kathleen solorio [facility] 07/24/2024 14:15:28 Do You Or Have [...] SNOMED-CT Code Diagnosis ICD10 Code Diagnosis Note [id number] Judd Hodgson DPT [facility] [address] [place] [address] 07/24/2024 11:11:22 07/24/2024 12:28:34 History of total knee arthroplasty 9927747910 105 Z96.297 [id number] Epifanio [facility]ate [facility] 2[facility] [address] [place] [address] 07/24/2024 13:49:37 08/15/2024 09:20:00 Postoperative visit 904018542 Z48.89 [id number] Judd Hodgson DPT [facility] [address] [place] [address] 07/29/2024 17:07:06 07/29/2024 18:46:56 History of total knee arthroplasty 3045790542 105 Z96.245 [id number] Judd Hodgson DPT [facility] [address] [place] [address] 07/31/2024 13:36:22 07/31/2024 15:38:09 History of total knee arthroplasty 6829159904 105 Z96.145 [id number] Judd Hodgson DPT [facility] [address] [place] [address] 08/04/2024 13:38:13 08/04/2024 15:48:53 History of total knee arthroplasty 5057794194 105 Z96.253 [id number] Judd Hodgson DPT [facility] [address] [place] [address] 08/06/2024 13:43:11 08/06/2024 14:47:31 History of total knee arthroplasty 5242341089 105 Z96.776 [id number] BHARGAV [facility] 2nd floor [address] [place] [address] 08/07/2024 12:52:14 08/20/2024 12:07:22 History of right total knee replacement 2823799116 027181 Z96.651 Health Concerns Section Related Observation LastModified by Organization Detai ls LastModified Time None Recorded Concern Status LastModified by Organization Details LastModified Time None Recorded Payers Encounter Date Sequence Insurance Name Policy Number Policy Campos Covered Member ID Campos Member ID Guarantor Name 08/07/2024 1 [facility] [employer] - TOGETHER (MEDICAID HMO) [id number] Linda Cleveland [id number] Linda Cleveland Notes Date Note Type Note Provider Name and Address Organization Details Recorded Time 08/07/2024 text/html I am seeing the patient today under the supervision of {{Dr. Tena Richter* Dr.Luber Dr. Ion Lainez}} who was available but who did not see the patient. HPI: Patient comes in for follow-up, now 4 weeks status post {{right* left}} total knee arthroplasty. Happy with results. Still struggling with pain and stiffness about the knee. Range of motion with physical therapy is {{ 0-90#}} . No negative postoperative complications noted. Past family, medical, social history and review of systems has been reviewed, updated and is located in the patient? s chart. Examination:The patient is well appearing and in no apparent distress. Alert and oriented x3. Gait is antalgic on the operative side with use of ambulatory aid. Examination {{right* left}} knee has a healing surgical incision, Appropriate postoperative effusion, no erythema or warmth. Range of motion from {{ 0-80#}}. No ligamentous instability to varus or valgus stress test at 0 or 30??. Calf is soft and nontender bilaterally. 4/5 strength of knee flexion and extension. Impression: 4 weeks Status post {{right* left}} total knee arthroplasty Plan: Nature of the diagnosis discussed with the patient today at this point due to some concerns of her progress of range of motion. Case was discussed with Dr. Richter recommend following up with Dr. Richter on 08/20 with possible BLAISE on 08/25 [facility] speech recognition fur plucker software was used to create portions of this document. An attempt at proofreading has been made to minimize errors. Please call for corrections. Epifanio Arzate PA-C [address] [place] [address] [address], [place], [address], [facility] 08/07/2024 13:22:12 OBGyn Episode No OBEpisode recorded.
== END 2024-09-30 13:24 | disposition home or self-care (01) ==
PROVIDERS: PCP Internal Medicine; Visit Provider Hospitalist
DX: J45.40 Moderate persistent asthma, uncomplicated (principal); I27.82 Chronic pulmonary embolism; R74.01 Elevation of levels of liver transaminase levels; E04.1 Nontoxic single thyroid nodule; I82.401 Acute embolism and thrombosis of unspecified deep veins of right lower extremity
CPT/HCPCS: 99215

== ENCOUNTER → 2024-09-30 12:51 | Outpatient (BNVA) | payer OTHER, SELFPAY | PROVIDERS: PCP Internal Medicine; Visit Provider Hospitalist | DX: J45.40 Moderate persistent asthma, uncomplicated (principal); I27.82 Chronic pulmonary embolism; I82.401 Acute embolism and thrombosis of unspecified deep veins of right lower extremity; E04.1 Nontoxic single thyroid nodule; R74.01 Elevation of levels of liver transaminase levels | CPT/HCPCS: 99212 ==

== ENCOUNTER 2024-11-14 13:01 | Outpatient (REF) | payer OTHER, SELFPAY ==
--- NOTE | ~2024-11-14 | US_ITS ---
EXAMINATION: US TRIPLEX LOWER EXTREMITY, RIGHT CLINICAL INFORMATION: History of acute embolism. Right lower extremity pain. COMPARISON: None available. TECHNIQUE: Color-flow triplex imaging with spectral analysis and compression Doppler were performed on the right lower extremity. FINDINGS: Respiratory variation, normal compression and augmented flow are noted throughout the right lower extremity. The visualized common femoral vein, superficial femoral vein, profunda femoral vein, popliteal vein and midcalf peroneal and posterior tibial venous segments show normal compressibility, respiratory compression and augmentation.. There is no Alarcon's cyst. US/US venous duplex LE RT IMPRESSION: No acute deep venous thrombosis involving the right lower extremity. Negative exam. Electronically signed by: Dylan Marquez MD 11/17/2024 08:28 AM EST
--- OUTSIDE RECORDS SUMMARY | 2024-11-14 13:29 | XMS_ITS | Clinical Summary ---
Author Organization [facility] Address [address] [place] [address] Care Team Providers Care Broth Mixer Name Role Phone Graham Pro MD Primary Care Provider [phone] Allergies No known active allergies Medications Medication Sig Dispensed Refills Start Date End Date Status ELIQUIS 5 MG TABS tablet Take 5 mg by mouth 2 (two) times a day. for 30 days 11 06/10/2019 Active Active Problems Problem Noted Date Diagnosed Date Abnormal uterine bleeding 06/06/2018 Endometriosis 07/29/2017 Hypertension 07/29/2017 Kidney stone 07/29/2017 Obesity, Class III, BMI 40-49.9 (morbid obesity) 07/29/2017 History of pulmonary embolism 03/20/2016 Asthma 03/19/2016 Thyroid nodule 03/19/2016 Overview: Overview: Chest CT 03/12/16 at [facility] - Exophytic nodule along left inferior border of thyroid gland, rec thyroid US Social History Tobacco Use Types Packs/Day Years Used Date Smoking Tobacco: Never Smokeless Tobacco: Never Alcohol Use Standard Drinks/Week Comments No 0 (1 standard drink = 0.6 oz pur e alcohol) Sex and Gender Information Value Date Recorded Sex Assigned at Not on file Gender Identity Not on file Sexual Orientation Not on file Last Filed Vital Signs Vital Sign Reading Time Taken Comments Blood Pressure - - Pulse - - Temperature - - Respiratory Rate - - Oxygen Saturation - - Inhaled Oxygen Concentration - - Weight 105.7 kg (233 lb) 07/07/2019 9:57 AM EDT Height 152.4 cm (5') 07/07/2019 9:57 AM EDT Body Mass Index 45.5 07/07/2019 9:57 AM EDT Plan of Treatment Health Maintenance Due Date Last Done Comments Hepatitis B Vaccines (1 of 3 - 3-dose series) 1973 Hepatitis C Screening 1973 COVID-19 Vaccine (#1) 03/23/1974 Pneumococcal Vaccine (1 of 2 - PCV) 1979 Depression Screening 1985 BMI Counseling 1991 Preventative Health Evaluation 1991 DTap / Tdap / Td (1 - Tdap) 1992 Cervical Cancer Screening (P ap Smear) 1994 Colon Cancer Screening (Colonoscopy) 2018 Breast Cancer Screening (Mammogram) 2023 Shingrix-Zoster Vaccine (1 of 2) 2023 Influenza Vaccine (#1) 2024 RSV Ped < 20 months Aged Out No longe r eligible based on patient's age to complete this topic Insurance Payer Benefit Plan / Group Subscriber ID Effective Dates Phone Address [facility] [id number] 2018-Seth 1 [facility] [address] [place] [phone] [facility] [place] Care Teams Broth Mixer Relationship Specialty Start Date End Date Graham rPo MD PCP - General Internal Medicine 07/07/19
--- OUTSIDE RECORDS SUMMARY | 2024-11-14 13:29 | XMS_ITS | Clinical Summary ---
Author Organization [facility] [address] [place] [address] [place] [address] Phone Care Team Providers Care Wood Handler Name Role Phone Jeremie Pro MD Primary Care Provider [phone] Encounters Date Type Department Care Team Description 10/07/2024 10:36 AM EST - 10/07/2024 11:59 PM EST Hospital Encounter Radiology Department - [address] [phone] Encounter for screening mammogram for breast cancer Discharge Disposition: Home or Self Care from Last 3 Months Surgical History Surgery Date Site/Laterality Comments OTHER SURGICAL HISTORY PROCEDURE: [place] NEPHROLITHOTOMY SECONDARY SURG OPERJ CALCULUS TUBAL LIGATION 1993 PROCEDURE: HISTORICAL TUBAL LIGATION CHOLECYSTECTOMY 1999 PROCEDURE: [place] CHOLECYSTECTOMY ROBOTIC ASSISTED HYSTERECTOMY 07/19/2018 PROCEDURE: HISTORICAL ROBOTIC HYSTERECTOMY WITH OR WITHOUT BSO; COMMENT: da Autumn total hysterectomy with bilateral salpingectomy performed by Dr. Sofia Medical History Medical History Date Comments Dysmenorrhea DX:Dysmenorrhea Pneumonia 09/2012 DX:Pneumonia Pulmonary embolism (CMS/HCC) 03/20/2016, DX:Pulmonary embolism ([facility]) Hypertension 07/29/2017 DX:Hypertension Asthma 03/19/2016 DX:Asthma; COMME NT: X 1 mo - then [facility] 03/12/16 admission for pneumonia - seen by Dr. Betancur (pul), advised f/u upon d/c. Endometriosis 07/29/2017 DX:Endometriosis Kidney stone 07/29/2017 DX:Kidney stone Morbid obesity with BMI of 45.0-49.9, adult (CMS/HCC) 07/29/2017 DX:Morbid obesity with BMI of 45.0-49.9, adult (HCC) Morbid obesity with BMI of 50.0-59.9, adult (CMS/HCC) 07/29/2017 DX:Morbid obesity with BMI of 50.0-59.9, adult (HCC) History of pulmonary embolism 03/20/2016 DX :History of pulmonary embolism Thyroid nodule 03/19/2016 DX:Thyroid nodul e; COMMENT: Chest CT 03/12/16 at [facility] - Exophytic nodule along left inferior border of thyroid gland, rec thyroid US Family History Medical History Relation Name Comments Breast cancer Aunt m. aunt Other: Endometriosis Mother Other: cancer breast Other materna l cousin Breast cancer Paternal Grandmother Pancreatic cancer Paternal Grandmother Other: brain tumor Uncle paternal Relation Name Status Comments Aunt m. aunt Brother Alive Father Alive Maternal Grandfather Maternal Grandmother Alive Mother Alive Other Paternal Grandfather Paternal Grandmother Sister Alive Son 1 López Alive Son 2 Baltazar Alive Uncle Social History Tobacco Use Types Packs/Day Years Used Date Smoking Tobacco: Never Smokeless Tobacco: Never Alcohol Use Standard Drinks/Week Comments No 0 (1 standard drink = 0.6 oz pur e alcohol) Comments No Sex and Gender Information Value Date Recorded Sex Assigned at Not on file Legal Sex Female 12:43 PM EST Gender Identity Not on file Sexual Orientation Not on file Obstetrics History Para Term AB IAB SAB Ectopic Multiple Livin g Live Births 2 2 2 2 Date Outcome GA Total Labor Labor/2nd/3rd Weight Sex Type Anes PTL Chelsea A1 A5 Name Clin Term Term Last Filed Vital Signs Vital Sign Reading Time Taken Comments Blood Pressure 144/100 02/16/2023 1:40 PM EDT Pulse 90 02/16/2023 1:04 PM EDT Temperature - - Respiratory Rate - - Oxygen Saturation - - Inhaled Oxygen Concentration - - Weight 106 kg (233 lb) 02/16/2023 1:04 PM EDT Height 152.4 cm (5') 02/16/2023 1:04 PM EDT Body Mass Index 45.5 02/16/2023 1:04 PM EDT Plan of Treatment Health Maintenance Due Date Last Done Comments DTaP,Tdap,and Td Vaccines (1 - Tdap) 1992 Hepatitis B Vaccines (1 of 3 - 19+ 3-dose series) 1992 Cervical Cancer Screening: HPV 1994 Cholesterol Screening (Lipid Panel) 09/02/2022 Colorectal Cancer Screening: Colonoscopy 09/02/2022 Depression Screening 09/02/2022 HIV Screening 09/02/2022 Hepatitis C Screening 09/02/2022 Hypertension/CHF/CAD Annual BMP Blood Test 09/02/2022 Social Influencers of Health Screening 09/02/2022 Zoster Vaccines (1 of 2) 2023 Breast Cancer Screening 10/07/2026 10/07/19 25, 09/27/2023, 09/25/2023, Additional history exists Pneumococcal Vaccine: 50+ Years Completed 09/28/2023 Pneumococcal Vaccine: Pediatrics (0 to 5 Years) and At-Risk Patients (6 to 64 Years) Completed 09/28/2023 COVID-19 Vaccine Completed 06/06/2024, , 07/27/2022, Additional history exists Influenza Vaccine Completed 06/06/2024, , 08/24/2022, Additional history exists HIB Vaccines Aged Out No longer eligi ble based on patient's age to complete this topic HPV Vaccines Aged Out No longer eligi ble based on patient's age to complete this topic Hepatitis A Vaccines Aged Out No long er eligible based on patient's age to complete this topic IPV Vaccines Aged Out No longer eligi ble based on patient's age to complete this topic MMR Vaccines Aged Out No longer eligi ble based on patient's age to complete this topic Meningococcal ACWY Vaccine Aged Out N o longer eligible based on patient's age to complete this topic Meningococcal B Vacine Aged Out No lo nger eligible based on patient's age to complete this topic RSV Immunization Patients Under 20 months Aged Out No longer eligible based on patient's age to complete this topic Varicella Vaccines Aged Out No longer eligible based on patient's age to complete this topic Procedures Procedure Name Priority Date/Time Associated Diagnosis Comments MG MAMMO DIGITAL SCREENING W LINWOOD BILAT Routine 10/07/2024 11:17 AM EST Encounter for screening mammogram for breast cancer from Last 3 Months Results * MG Mammo Digital Screening w Linwood bilat (10/07/2024 11:17 AM EST) Anatomical Region Laterality Modality Breast Bilateral Mammography 10/07/2024 12:3 3 PM EST Impressions 10/07/2024 12:37 PM EST Benign. BI-RADS CATEGORY: 1 - NEGATIVE RECOMMENDATION: Screening bilateral mammogram is recommended in 1 year. Mammo Location: [facility], [address] [place] [address], [id number], . -------- FINAL REPORT -------- Dictated By: Cindi Cabrera Dictated Date: 10/07/2024 12:33 ET Assigned Physician: Cindi Cabrera Reviewed and Electronically Signed By: Cindi Cabrera Signed Date: 10/07/2024 12:37 ET Workstation ID: [id number] Transcribed By: Self Edit Transcribed Date: 10/07/2024 12:33 ET Narrative 10/07/2024 12:37 PM EST CLINICAL: 49 years old, Female, routine annual exam. COMPARISON: Mammograms dating back to 08/26/2020 with most recent of 09/25/2023. ?? TECHNIQUE: Bilateral MLO and CC views were obtained digitally with 3-D mammogram (digital breast tomosynthesis). Computer-aided detection was utilized in evaluation of this exam (CAD). FINDINGS: There is no evidence of suspicious mass or architectural distortion. ??No worrisome calcifications are evident. ??There has been no significant change from prior exam(s). ?? BREAST DENSITY: B - There are scattered areas of fibroglandular density. Procedure Note Cindi Cabrera MD - 10/07/2024 CLINICAL: 49 years old, Female, routine annual exam. COMPARISON: Mammograms dating back to 08/26/2020 with most recent of09/25/2023. TECHNIQUE: Bilateral MLO and CC views were obtained digitally with 3-Dmammogram (digital breast tomosynthesis). Computer-aided detection wasutilized in evaluation of this exam (CAD). FINDINGS: There is no evidence of suspicious mass or architectural distortion. Noworrisome calcifications are evident. There has been no significantchange from prior exam(s). BREAST DENSITY: B - There are scattered areas of fibroglandular density. IMPRESSION: Benign. BI-RADS CATEGORY: 1 - NEGATIVE RECOMMENDATION: Screening bilateral mammogram is recommended in 1 year. Mammo Location: [facility], [address] [place] [address], [id number], . -------- FINAL REPORT -------- Dictated By: Cindi Cabrera Dictated Date: 10/07/2024 12:33 ET Assigned Physician: Cindi Cabrera Reviewed and Electronically Signed By: Cindi Cabrera Signed Date: 10/07/2024 12:37 ET Workstation ID: [id number] Transcribed By: Self Edit Transcribed Date: 10/07/2024 12:33 ET Marjan Joy MD IMG BI PROCEDURES Final Result from Last 3 Months Insurance [facility] Care Teams Wood Handler Relationship Specialty Start Date End Date Jereime Pro MD [address] [place] [id number] PCP - General 08/02/23
== END 2024-11-14 13:02 | disposition home or self-care (01) ==
LOC: HO.US 13:01
PROVIDERS: PCP Internal Medicine; Visit Provider Internal Medicine
DX: I82.401 Acute embolism and thrombosis of unspecified deep veins of right lower extremity (principal)
CPT/HCPCS: 93971

== ENCOUNTER → 2024-11-14 13:03 | Outpatient (BNV) | payer OTHER, SELFPAY | PROVIDERS: PCP Internal Medicine; Visit Provider Radiology Diagnostic Radiology | DX: M79.661 Pain in right lower leg (principal) | CPT/HCPCS: 93971 ==

== ENCOUNTER 2024-12-11 16:23 | Outpatient (AMB) | payer OTHER, SELFPAY ==
--- NOTE | 2024-12-11 16:29 | A.OFFPC_ITS ---
Vital Signs 12/11/24 16:31 Height 4 ft 10 in Weight 177 lb 11.081 oz BMI 37.1 BP 130/72 Blood Pressure Location Lt brachial Position Sitting Intake Visit Reasons: thyroid nodule/knee replmnt f/u Uniform Attendant Required: No Accompanied by: Self / Same As Patient Allergies No Known Allergies Allergy (Verified 12/11/24 16:52) Medication List - Last Reconciled 12/11/24 by Marjan Joy MD albuterol sulfate 2.5 mg (3 mL) inhalation Q4-6H PRN albuterol sulfate 90 mcg/actuation 2 puffs inhalation QID PRN 30 days budesonide-formoterol 160-4.5 mcg/actuation 2 inhalations inhalation BID 30 days thom.stocking,knee,reg,smal 15-20 cm enoxaparin (Lovenox) 80 mg subcut Q12H nebulizers As directed Tobacco use date assessed: 12/11/24 Dental Screening Dental Screen Date: 12/11/24 Did you have a dental visit in the last 12 months?: Yes Did you have a dental problem in the last 6 months where you did not have access to dental care?: No Was dental information given to patient?: Patient has dentist HPI HPI Comments History of Present Illness Details The patient is a 49-year-old female presenting with follow-up concerns regarding her anticoagulation therapy and complications arising from knee osteoarthritis, post-right knee replacement surgery, and thyroid management. A significant thyroid nodule requires biopsy evaluation, planned for December 18. The anticoagulation therapy includes Lovenox following reclotting events instead of Eliquis, as advised pending hematology consultation. Severe bilateral osteoarthritis required earlier right knee meniscus repair and a recent knee replacement. Post-replacement manipulation followed due to scar tissue formation, potentially aggravating clot risks previously inherent in her medical history. Swelling and pain confirmed a recurrence of clotting complications, consistent with prior DVT and embolism episodes. She also underwent a hysterectomy in 2018 for similar risks. Mobility limitations due to bilateral osteoarthritis led to her current disability status. Her left knee requires replacement, heightened by disability and severe pain. Weight loss post-gastric sleeve surgery significantly altered her health profile, impacting glucose readings now observed at lower levels than her previous high measurements. [facility] Medical History (Updated 12/11/24 @ 17:04 by Marjan Joy MD) Morbid obesity DVT (deep venous thrombosis) Osteoarthritis of right knee Knee pain, right Lower extremity edema Pulmonary emboli Asthma Surgical History (Updated 12/11/24 @ 17:01 by Marjan Joy MD) H/O gastric sleeve History of right knee joint replacement History of cholecystectomy History of lateral meniscus repair of right knee History of hysterectomy Family History Mother No problems noted. Father Prostate cancer Social History Housing: House Patient Tobacco Use Status: Never used Tobacco e-Cigarette/Vaping Use: Never Used Second Hand Smoke Exposure: No service: No Current occupational status: disabled Cognitive needs: Yes Hearing needs: No Vision needs: Yes Questionnaire PHQ-9 Over the last 2 weeks, how often have you been bothered by any of the following problems? 1. Little interest or pleasure in doing things: not at all 2. Feeling down, depressed, or hopeless: not at all 3. Trouble falling or staying asleep, or sleeping too much: not at all 4. Feeling tired or having little energy: not at all 5. Poor appetite or overeating: not at all 6. Feeling bad about yourself - or that you are a failure or have let yourself or your family down: not at all 7. Trouble concentrating on things, such as reading the newspaper or watching television: not at all 8. Moving or speaking so slowly that other people could have noticed. Or the opposite - being so fidgety or restless that you have been moving around a lot more than usual: not at all 9. Thoughts that you would be better off or of hurting yourself in some way: not at all Total score: 0 Depression Screening Interpretation: Negative Depression Screening Done: Yes 23115 - PHQ-9 Billing: Yes Source: Developed by Drs. Ron Michel, Kimberly Arcos, Pedro Sigala and colleagues, with an educational chiquis from [employer]. Thrive Questionnaire Date Thrive assessed: 12/11/24 I am a: Patient What is your living situation today?: I have a steady place to live Within the past 12 months, did the food you bought not last and you didn't have the money to get more?: Never true Within the past 12 months, did you worry whether your food would run out before you got money to buy more?: Never true Do you have trouble paying for medicines?: No Do you have trouble getting transportation to medical appointments?: No Do you have trouble paying your heating and electricity bill?: No Do you have trouble taking care of your child, family member or friend?: No Do you have trouble with day-to-day activities such as bathing, preparing meals, shopping, managing finances, etc.?: No Are you currently unemployed and looking for a job?: No Are you interested in more education?: No Please select the resources that you would like help with: None Currently or been in a relationship where the following occur: No concerns reported THRIVE Score: 0 AUDIT C Alcohol Use Questionnaire (AUDIT-C) 1. How often do you have a drink containing alcohol?: Never Total Score: 0 Score Reviewed/Action Taken: No BISI-7 AMB Questionnaire BISI-7 Date BISI - 7 assessed: 12/11/24 Feeling nervous, anxious, or on edge: 0 = Not at all Not being able to stop or control worryin = Not at all Worrying too much about different things: 0 = Not at all Trouble relaxin = Not at all Being so restless that it is hard to sit still: 0 = Not at all Becoming easily annoyed or irritable: 0 = Not at all Feeling afraid as if something awful might happen: 0 = Not at all Total BISI-7 score (0-4 normal; 5-9 mild; 10-14 moderate; 15-21 severe): 0 Source: Developed by Drs. Ron Michel, Kimberly Arcos, Pedro Sigala and colleagues, with an educational chiquis from [employer]. BISI-7 Assessment Billing BISI-7 Assessment Tool: BISI-7 Assessment 90639 Review of Systems Const All systems reviewed & are unremarkable except as noted in HPI and below Card Denies chest pain at rest, Denies chest pain with activity, Denies edema, Denies irregular heart rhythm, Denies claudication, Denies dyspnea, Denies dyspnea on exertion, Denies orthopnea, Denies paroxysmal nocturnal dyspnea and Denies slow heart rate Resp Denies cough, Denies dyspnea and Denies dyspnea on exertion GI Denies abdominal pain, Denies change in bowel habits, Denies excessive flatus, Denies nausea and Denies vomiting Neuro Denies behavioral changes and Denies lack of coordination Psych Denies behavioral changes Physical exam (Primary Care) Vital Signs: Last Vital Signs BP 130/72 12/11/24 16:31 BMI result Body Mass Index 37.1 Tobacco/Smoking Status: Tobacco use Status Tobacco use date assessed 12/11/24 12/11/24 16:38 Patient Tobacco Use Status Never used Tobacco 12/11/24 16:38 e-Cigarette/Vaping Use Never Used 12/11/24 16:38 PHQ-9: PHQ-9 Score PHQ-9: Total score 0 12/11/24 16:53 Depression Screening Interpretation: Negative Thrive Assessment: Date of Thrive Assessment Date Thrive assessed 12/11/24 12/11/24 16:38 Currently or been in a relationship where the following occur: No concerns reported Resp Effort & Inspection: normal respiratory effort Auscultation: clear to auscultation bilaterally Cardio Jugular venous distension: no JVD Rate: regular rate Rhythm: regular rhythm Heart sounds: S1 normal heart sound present and S2 normal heart sound present Extrem General: Yes full ROM Psych Appearance: grossly normal Coding Level of Care Code Est Pt Level 4 (31417) Complex EM visit Add On G2211 Diagnoses Acute deep vein thrombosis (DVT) of right lower extremity, unspecified vein I82.401 DVT location: lower extremity Affected thrombotic vein of extremity: unspecified vein of extremity Chronicity: acute Laterality: right Impaired glucose tolerance R73.02 Thyroid nodule E04.1 Obesity E66.9 Osteoarthritis of right knee M17.11 Additional Codes BISI-7 Assessment Billing - BISI-7 Assessment Tool: BISI-7 Assessment 40052 ([id number]) PHQ-9 - 37473 - PHQ-9 Billing: Yes ([id number]) Time Spent (min) 21 Assessment & Plan Assessment & Plan (1) DVT (deep venous thrombosis): Code(s): I82.409 - Acute embolism and thrombosis of unspecified deep veins of unspecified lower extremity Category: Medical Qualifiers: DVT location: lower extremity Affected thrombotic vein of extremity: unspecified vein of extremity Chronicity: acute Laterality: right Qualified Code(s): I82.401 - Acute embolism and thrombosis of unspecified deep veins of right lower extremity (2) Impaired glucose tolerance: Code(s): R73.02 - Impaired glucose tolerance (oral) Category: Medical (3) Thyroid nodule: Code(s): E04.1 - Nontoxic single thyroid nodule Category: Medical (4) Obesity: Code(s): E66.9 - Obesity, unspecified Category: Medical (5) Osteoarthritis of right knee: Code(s): M17.11 - Unilateral primary osteoarthritis, right knee Category: Medical Plan Maintain Lovenox anticoagulation therapy in anticipation of the thyroid biopsy on December 18, consulting with the field contact person for continuity of care and possible Eliquis reintroduction. Knee management focuses on continued improvement following right knee replacement complications while awaiting scheduled surgery for the left knee. Nutritional monitoring of glucose fluctuations and weight management continues with ensuing routine blood work in January. Biopsy results will yield further course guidance, emphasizing safe anticoagulation strategies to mitigate thrombosis risks during surgeries. Patient was informed and verbally consented to the use of an ambient scribe for clinic note documentation during this visit. I discussed with the patient the importance of maintaining Lovenox therapy ahead of her scheduled thyroid biopsy due to the associated anticoagulation risks. We reviewed the delay in biopsy scheduling and its implications for therapy management, emphasizing hematology's role in determining the potential switch back to Eliquis following the procedure. The anticipated left knee replacement was discussed in conjunction with current anticoagulation requirements, pending results from her planned biopsy. A scheduled review of her nutritional status and blood glucose levels is planned with blood work ordered for January to ensure continued monitoring of her health metrics post-gastric sleeve surgery. I ensured the patient acknowledged the safety and risk reduction associated with our current management approach. Orders: Orders Lipid Panel Today E78.5 - Hyperlipidemia, unspecified Comprehensive [place]. Panel Fast Today R73.02 - Impaired glucose tolerance (oral) Thyroid Stimulating Hormone Today E04.1 - Nontoxic single thyroid nodule Patient Instructions: - Continue Lovenox therapy as directed every 12 hours until biopsy. - Attend upcoming thyroid biopsy appointment on December 18. - Schedule and complete blood work the week before the January appointment to monitor glucose and other health metrics. - Notify the provider immediately if experiencing increased swelling, unusual pain, or other symptoms suggestive of clotting. - Continue current dietary practices while monitoring caloric intake and weight. - Consider follow-up with your field contact person in February for further assessment and management post-biopsy. - Watch for changes in mobility or symptoms in the knees and report to the provider as needed.
[2024-12-11 16:31] VITALS: BP 130/72; BMI 37.1
== END 2024-12-11 17:21 | disposition home or self-care (01) ==
LOC: HO.HMCH 16:24
PROVIDERS: PCP Internal Medicine; Visit Provider Internal Medicine
DX: I82.401 Acute embolism and thrombosis of unspecified deep veins of right lower extremity (principal); R73.02 Impaired glucose tolerance (oral); E66.9 Obesity, unspecified; Z68.37 Body mass index [BMI] 37.0-37.9, adult; E04.1 Nontoxic single thyroid nodule; M17.11 Unilateral primary osteoarthritis, right knee

== ENCOUNTER → 2024-12-11 16:23 | Outpatient (BNVA) | payer OTHER, SELFPAY | PROVIDERS: PCP Internal Medicine; Visit Provider Internal Medicine | DX: I82.401 Acute embolism and thrombosis of unspecified deep veins of right lower extremity (principal); R73.02 Impaired glucose tolerance (oral); E04.1 Nontoxic single thyroid nodule; E66.9 Obesity, unspecified; Z68.37 Body mass index [BMI] 37.0-37.9, adult; M17.11 Unilateral primary osteoarthritis, right knee; Z71.3 Dietary counseling and surveillance | CPT/HCPCS: 96127; 99212 ==

== ENCOUNTER 2025-02-02 07:29 | Outpatient (REF) | payer OTHER, SELFPAY ==
--- OUTSIDE RECORDS SUMMARY | 2025-02-02 07:32 | XMS_ITS | Clinical Summary ---
Author Organization [address] Address [address] [place] [phone] Phone Care Team Providers Care Material Assembler Name Role Phone Jeremie Pro MD Primary Care Provider [phone] Surgical History Surgery Date Site/Laterality Comments OTHER SURGICAL HISTORY PROCEDURE: [place] NEPHROLITHOTOMY SECONDARY SURG OPERJ CALCULUS TUBAL LIGATION 1993 PROCEDURE: HISTORICAL TUBAL LIGATION CHOLECYSTECTOMY 1999 PROCEDURE: [place] CHOLECYSTECTOMY ROBOTIC ASSISTED HYSTERECTOMY 07/19/2018 PROCEDURE: HISTORICAL ROBOTIC HYSTERECTOMY WITH OR WITHOUT BSO; COMMENT: da Autumn total hysterectomy with bilateral salpingectomy performed by Dr. Sofia Medical History Medical History Date Comments Dysmenorrhea DX:Dysmenorrhea Pneumonia 09/2012 DX:Pneumonia Pulmonary embolism ([facility] V24, [facility] V28) 03/20/2016, 10/01/2018 DX:Pulmonary embolism ([facility]) Hypertension 07/29/2017 DX:Hypertension Asthma 03/19/2016 DX:Asthma; COMME NT: X 1 mo - then [facility] 03/12/16 admission for pneumonia - seen by Dr. Betancur (pul), advised f/u upon d/c. Endometriosis 07/29/2017 DX:Endometriosis Kidney stone 07/29/2017 DX:Kidney stone Morbid obesity with BMI of 45.0-49.9, adult (CMS/HCC V24, [facility] V28) 07/29/2017 DX:Morbid obesity with BMI o f 45.0-49.9, adult ([facility]) Morbid obesity with BMI of 50.0-59.9, adult (CMS/HCC V24, CMS/HCC V28) 07/29/2017 DX:Morbid obesity with BMI o f 50.0-59.9, adult ([facility]) History of pulmonary embolism 03/20/2016 DX :History of pulmonary embolism Thyroid nodule 03/19/2016 DX:Thyroid nodul e; COMMENT: Chest CT 03/12/16 at [facility] - Exophytic nodule along left inferior border of thyroid gland, rec thyroid US Family History Medical History Relation Name Comments Breast cancer Aunt theresa. aunt Other: Endometriosis Mother Other: cancer breast [...] 02/16/2023 1:04 PM EDT Plan of Treatment Upcoming Encounters Date Type Department Care Team (Late st Contact Info) Description 02/23/2025 9:00 AM EDT Office Visit Obstetrics & Gynecology - [facility] [address] [place] [address] Alison Aponte CNM [address] [place] [address] Health Maintenance Due Date Last Done Comments [...] age to complete this topic Meningococcal B Vaccine Aged Out No l onger eligible based on patient's age to complete [...] for breast cancer from Last 3 Months or Most Recently Relevant to Health Maintenance Results * MG Mammo Digital Screening w [facility] bilat (10/07/2024 11:17 AM EST) Anatomical Region Laterality Modality Breast Bilateral Mammography 10/07/2024 12:3 3 PM EST Impressions 10/07/2024 12:37 PM EST Benign. BI-RADS CATEGORY: 1 - NEGATIVE RECOMMENDATION: Screening bilateral mammogram is recommended in 1 year. Mammo Location: [facility], [address] [place] [address], [address], . -------- FINAL REPORT -------- Dictated By: Cindi Cabrera Dictated Date: 10/07/2024 12:33 ET Assigned Physician: Cindi Cabrera Reviewed and Electronically Signed By: Cindi Cabrera Signed Date: 10/07/2024 12:37 ET Workstation ID: [id number] Transcribed By: Self Edit Transcribed Date: 10/07/2024 [...] is recommended in 1 year. Mammo Location: [facility], [address] [place] [address], [address], . -------- FINAL REPORT -------- Dictated By: Cindi Cabrera Dictated Date: 10/07/2024 12:33 ET Assigned Physician: Cindi Cabrera Reviewed and Electronically Signed By: Cindi Cabrera Signed Date: 10/07/2024 12:37 ET Workstation ID: [id number] Transcribed By: Self Edit Transcribed Date: 10/07/2024 12:33 ET Marjan Joy MD IMG BI PROCEDURES Final Result from Last 3 Months or Most Recently Relevant to Health Maintenance Insurance [facility] PLAN Care Teams Material Assembler Relationship Specialty Start Date End Date Jeremie Pro MD [address] [place] [id number] PCP - General 08/02/23
--- OUTSIDE RECORDS SUMMARY | 2025-02-02 07:32 | XMS_ITS | Clinical Summary ---
Author Organization [facility] Address [address] [place] [address] Care Team Providers Care Crane Mechanic Name Role Phone Graham Pro MD Primary Care Provider [phone] Allergies No known active allergies Medications Medication [...] 03/19/2016 Overview: Overview: Chest CT 03/12/16 at [facility] - Exophytic nodule along left inferior [...] Group Subscriber ID Effective Dates Phone Address [facility] [id number] 2018-Seth 1 [facility] [address] [place] [phone] [facility] Care Teams Crane Mechanic Relationship Specialty Start Date End Date Graham Pro MD PCP - General Internal Medicine 07/07/19
[2025-02-02 08:17] LABS: Alanine Aminotransferase 16 U/L (0-31); Albumin Level 4.1 g/dL (3.5-5.0); Alkaline Phosphatase 63 U/L (39-117); Anion Gap 11 (12-20); Aspartate Amino Transferase 18 U/L (5-31); Bilirubin Total 1.5 mg/dL (0.0-1.0); Blood Urea Nitrogen 15 mg/dL (9-16); Calcium 9.6 mg/dL (8.4-10.2); Carbon Dioxide 27 mmol/L (22-29); Chloride 108 mmol/L (96-108); Cholesterol 193 mg/dL (<200); Estimated Glomerular Filt Rate > 60; Glucose Fasting 91 mg/dL (60-99); HDL Cholesterol 81 mg/dL (>40); LDL Cholesterol Calculated 104 mg/dL (<100); Potassium 4.3 mmol/L (3.3-5.1); Sodium 142 mmol/L (135-145); Triglycerides 42 mg/dL (<150)
[2025-02-02 08:32] LABS: Thyroid Stimulating Hormone 2.52 uIU/mL (0.32-4.0)
== END 2025-02-02 07:30 | disposition home or self-care (01) ==
LOC: HO.LAB 07:29
PROVIDERS: Visit Provider Internal Medicine
DX: R73.02 Impaired glucose tolerance (oral) (principal); E04.1 Nontoxic single thyroid nodule; E78.5 Hyperlipidemia, unspecified
CPT/HCPCS: 36415; 80053; 80061; 84443

== ENCOUNTER 2025-02-03 15:45 | Outpatient (AMB) | payer OTHER, SELFPAY ==
[2025-02-03 15:59] VITALS: BP 152/100; BMI 35.9
--- NOTE | 2025-02-03 15:59 | MHC.PC.OV ---
Vital Signs 02/03/25 15:59 Height 4 ft 10 in Weight 172 lb BMI 35.9 BP 152/100 H Blood Pressure Location Lt brachial Position Sitting Intake Visit Reasons: Annual PE Intake Note: Patient here for a physical exam Hairspring Inspector Required: No Accompanied by: Self / Same As Patient Allergies No Known Allergies Allergy (Verified 02/03/25 16:24) Medication List - Last Reconciled 02/03/25 by Marjan Joy MD albuterol sulfate 2.5 mg (3 mL) inhalation Q4-6H PRN albuterol sulfate 90 mcg/actuation 2 puffs inhalation QID PRN 30 days apixaban (Eliquis) 5 mg PO BID budesonide-formoterol 160-4.5 mcg/actuation 2 inhalations inhalation BID 30 days thom.stocking,knee,reg,smal 15-20 cm nebulizers As directed Tobacco use date assessed: 12/11/24 Dental Screening Dental Screen Date: 12/11/24 HPI HPI Comments History of Present Illness Details The patient is a 49-year-old female presenting for an annual physical examination. She reports no previous tetanus vaccination and wishes to receive the Tdap vaccine. She is considering the shingles vaccine now that she is over 50 years old. Her prior mammogram in September was normal, and she is considering changing her mammogram location for convenience. She acknowledges being due for a colonoscopy but considers a Cologuard test, given the absence of family history or alarming symptoms. Her current medical history is significant for osteoarthritis with a completed right knee replacement, and the ongoing recovery is noted. A left knee surgery is pending due to bilateral involvement. She reports initial constipation post-gastric sleeve, managed with MiraLAX, and exacerbated by medication following knee surgery, which has since improved. Her three thrombotic episodes, including pulmonary embolisms and DVT, are treated with Eliquis. She plans to follow up with hematology in February. Asthma is managed with as-needed use of Symbicort and ventolin inhalers without recent exacerbations. The patient denies smoking, alcohol use, and depression but expresses anxiety about medical visits. Family history is notable for prostate cancer and a non-malignant nasal tumor in her father. A recent thyroid biopsy returned non-malignant results, with follow-up in May. - Tdap vaccine planned today - Consideration of the shingles vaccine since patient is over 50 years old - Mammogram performed in September with normal results - Discussed colorectal cancer screening, considering Cologuard due to no family history or symptoms - Thyroid follow-up scheduled for May after recent benign biopsy result - Eliquis for DVT prophylaxis and Symbicort for asthma management [facility] Medical History (Updated 02/03/25 @ 19:23 by Marjan Joy MD) Morbid obesity DVT (deep venous thrombosis) Osteoarthritis of right knee Knee pain, right Lower extremity edema Pulmonary emboli Asthma Surgical History H/O gastric sleeve History of right knee joint replacement History of cholecystectomy History of lateral meniscus repair of right knee History of hysterectomy Family History Mother No problems noted. Father Prostate cancer Social History Housing: House Patient Tobacco Use Status: Never used Tobacco e-Cigarette/Vaping Use: Never Used Second Hand Smoke Exposure: No service: No Current occupational status: disabled Cognitive needs: Yes Hearing needs: No Vision needs: Yes Questionnaire PHQ-9 Over the last 2 weeks, how often have you been bothered by any of the following problems? 1. Little interest or pleasure in doing things: not at all 2. Feeling down, depressed, or hopeless: not at all 3. Trouble falling or staying asleep, or sleeping too much: not at all 4. Feeling tired or having little energy: not at all 5. Poor appetite or overeating: not at all 6. Feeling bad about yourself - or that you are a failure or have let yourself or your family down: not at all 7. Trouble concentrating on things, such as reading the newspaper or watching television: not at all 8. Moving or speaking so slowly that other people could have noticed. Or the opposite - being so fidgety or restless that you have been moving around a lot more than usual: not at all 9. Thoughts that you would be better off or of hurting yourself in some way: not at all Total score: 0 Depression Screening Interpretation: Negative Depression Screening Done: Yes 27193 - PHQ-9 Billing: Yes Source: Developed by Drs. Ron Michel, Pedro Banuelos and colleagues, with an educational chiquis from [employer]. Thrive Questionnaire Date Thrive assessed: 12/11/24 I am a: Patient What is your living situation today?: I have a steady place to live Within the past 12 months, did the food you bought not last and you didn't have the money to get more?: Never true Within the past 12 months, did you worry whether your food would run out before you got money to buy more?: Never true Do you have trouble paying for medicines?: No Do you have trouble getting transportation to medical appointments?: No Do you have trouble paying your heating and electricity bill?: I choose not to answer this question Do you have trouble taking care of your child, family member or friend?: No Do you have trouble with day-to-day activities such as bathing, preparing meals, shopping, managing finances, etc.?: I choose not to answer this question Are you currently unemployed and looking for a job?: No Are you interested in more education?: No Please select the resources that you would like help with: None Currently or been in a relationship where the following occur: No concerns reported THRIVE Score: 0 AUDIT C Alcohol Use Questionnaire (AUDIT-C) 1. How often do you have a drink containing alcohol?: Never Total Score: 0 Score Reviewed/Action Taken: No BISI-7 AMB Questionnaire BISI-7 Date BISI - 7 assessed: 12/11/24 Feeling nervous, anxious, or on edge: 0 = Not at all Not being able to stop or control worryin = Not at all Worrying too much about different things: 0 = Not at all Trouble relaxin = Not at all Being so restless that it is hard to sit still: 0 = Not at all Becoming easily annoyed or irritable: 0 = Not at all Feeling afraid as if something awful might happen: 0 = Not at all Total BISI-7 score (0-4 normal; 5-9 mild; 10-14 moderate; 15-21 severe): 0 Source: Developed by Drs. Ron Michel, Kimberly Arcos, Pedro Sigala and colleagues, with an educational chiquis from [employer]. BISI-7 Assessment Billing BISI-7 Assessment Tool: BISI-7 Assessment 27752 Review of Systems Const All systems reviewed & are unremarkable except as noted in HPI and below Card Denies chest pain at rest, Denies chest pain with activity, Denies edema, Denies irregular heart rhythm, Denies claudication, Denies dyspnea, Denies dyspnea on exertion, Denies orthopnea, Denies paroxysmal nocturnal dyspnea and Denies slow heart rate Resp Denies cough, Denies dyspnea and Denies dyspnea on exertion GI Denies abdominal pain, Denies change in bowel habits, Denies excessive flatus, Denies nausea and Denies vomiting Denies urinary incontinence, Denies urinary hesitancy and Denies urinary urgency Musc Denies abnormal gait, Denies atrophy, Denies deformity and Denies limited range of motion Skin/Breast Denies bleeding lesions, Denies changing lesions and Denies rash Neuro Denies abnormal gait, Denies behavioral changes and Denies lack of coordination Psych Denies behavioral changes Physical exam (Primary Care) Vital Signs: Last Vital Signs BP 152/100 H 02/03/25 15:59 BMI result Body Mass Index 35.9 BMI Assessment/Plan discussion: High BMI High, discussed plan: lifestyle, weight reduction, dietary and physical activity Tobacco/Smoking Status: Tobacco use Status Tobacco use date assessed 12/11/24 02/03/25 16:03 Patient Tobacco Use Status Never used Tobacco 02/03/25 16:03 e-Cigarette/Vaping Use Never Used 02/03/25 16:03 PHQ-9: PHQ-9 Score PHQ-9: Total score 0 02/03/25 16:31 Depression Screening Interpretation: Negative Thrive Assessment: Date of Thrive Assessment Date Thrive assessed 12/11/24 02/03/25 16:03 Currently or been in a relationship where the following occur: No concerns reported [facility] Head: Yes normal to inspection, Yes normocephalic and Yes atraumatic Ears: external ears normal Eyes General: appearance normal, both eyes and all related structures Eyelids: Yes eyelids normal Conjunctivae: conjunctivae normal Neck Neck: Yes normal visual inspection and Yes supple Resp Effort & Inspection: normal respiratory effort Auscultation: clear to auscultation bilaterally Cardio Jugular venous distension: no JVD Rate: regular rate Rhythm: regular rhythm Heart sounds: S1 normal heart sound present and S2 normal heart sound present GI Inspection: Yes normal to inspection Palpation (GI): Soft to palpation and nontender Auscultation: normal bowel sounds Skin General skin exam: no rashes or lesions noted Neuro General: no focal motor deficits Extrem General: Yes full ROM Psych Appearance: grossly normal Coding Level of Care Code Complex EM visit Add On G2211 Diagnoses Physical exam Z00.00 Acute deep vein thrombosis (DVT) of right lower extremity, unspecified vein I82.401 DVT location: lower extremity Affected thrombotic vein of extremity: unspecified vein of extremity Chronicity: acute Laterality: right Chronic pulmonary embolism without acute cor pulmonale, unspecified pulmonary embolism type I27.82 Pulmonary embolism type: unspecified Chronicity: chronic Acute cor pulmonale presence: without acute cor pulmonale Additional Codes BISI-7 Assessment Billing - BISI-7 Assessment Tool: BISI-7 Assessment 28859 ([id number]) PHQ-9 - 53992 - PHQ-9 Billing: Yes ([id number]) Time Spent (min) 36 Assessment & Plan Assessment & Plan (1) Physical exam: Code(s): Z00.00 - Encounter for general adult medical examination without abnormal findings Category: Medical (2) DVT (deep venous thrombosis): Code(s): I82.409 - Acute embolism and thrombosis of unspecified deep veins of unspecified lower extremity Category: Medical Qualifiers: DVT location: lower extremity Affected thrombotic vein of extremity: unspecified vein of extremity Chronicity: acute Laterality: right Qualified Code(s): I82.401 - Acute embolism and thrombosis of unspecified deep veins of right lower extremity (3) Pulmonary emboli: Code(s): I26.99 - Other pulmonary embolism without acute cor pulmonale Category: Medical Qualifiers: Pulmonary embolism type: unspecified Chronicity: chronic Acute cor pulmonale presence: without acute cor pulmonale Qualified Code(s): I27.82 - Chronic pulmonary embolism Plan For today's visit, I will administer the Tdap vaccination and discuss the shingles vaccine, as she is over 50 years old. Her recent mammogram was normal, and we are considering a change in location for her next screening. We will evaluate colorectal cancer screening options, including Cologuard, based on her low-risk profile. Her recovery from right knee replacement continues smoothly, with physiotherapy recommended. The pending left knee surgery will be planned once her right knee is adequately rehabilitated. Her DVT and pulmonary embolism history are managed with Eliquis, with a follow-up with hematology in February. Asthma is managed on an as-needed basis with Symbicort and ventolin inhalers. A recent thyroid biopsy has returned nonmalignant results, and we will follow up in May. Patient was informed and verbally consented to the use of an ambient scribe for clinic note documentation during this visit. During our discussion, I reviewed the upcoming Tdap vaccination and encouraged the patient to receive a shingles vaccine. I acknowledged her normal mammogram and advised a possible location change for future screenings. Considering her lack of family history or adverse symptoms, I discussed the feasibility of Cologuard for colorectal screening. Post-right knee replacement rehabilitation is ongoing, and the left knee surgery will be deferred until she is fully recovered. We addressed her anxiety concerning medical visits, remember to continue swimming, and use MiraLAX occasionally for post-gastric sleeve constipation. Her DVT and embolism history are managed with Eliquis, with a hematology appointment in February. For asthma, she uses Symbicort as needed and has no recent exacerbations. The thyroid biopsy results were benign; we will reassess its status in May. Orders: Referrals Cologuard Test Z12.11 - Encounter for screening for malignant neoplasm of colon, Z12.12 - Encounter for screening for malignant neoplasm of rectum Patient Instructions: - Receive Tdap vaccine today - Consider shingles vaccine; check pharmacy availability - Schedule follow-up mammograms; consider location change - For colon cancer screening, consider Cologuard; avoid foods that may color stool near test time - Engage in continued physical therapy; follow surgeon's advice for left knee surgery - Continue using Symbicort inhaler as needed for asthma - Use MiraLAX to manage constipation occasionally - Follow DVT management with Eliquis and hematology in February - Report any new symptoms or concerns immediately
--- OUTSIDE RECORDS SUMMARY | 2025-02-03 16:28 | XMS_ITS | Clinical Summary ---
Author Organization [address] Address [address] [place] [phone] Phone Care Team Providers Care Scrummaster Name Role Phone Jeremie Pro MD Primary Care Provider [phone] Surgical History Surgery Date Site/Laterality Comments OTHER SURGICAL HISTORY PROCEDURE: [place] NEPHROLITHOTOMY SECONDARY SURG OPERJ CALCULUS TUBAL LIGATION 1993 PROCEDURE: HISTORICAL TUBAL LIGATION CHOLECYSTECTOMY 1999 PROCEDURE: [place] CHOLECYSTECTOMY ROBOTIC ASSISTED HYSTERECTOMY 07/19/2018 PROCEDURE: HISTORICAL ROBOTIC HYSTERECTOMY WITH OR WITHOUT BSO; COMMENT: da Autumn total hysterectomy with bilateral salpingectomy performed by Dr. Sofia Medical History Medical History Date Comments Dysmenorrhea DX:Dysmenorrhea Pneumonia 09/2012 DX:Pneumonia Pulmonary embolism ([facility] V24, [facility] V28) 03/20/2016, 10/01/2018 DX:Pulmonary embolism ([facility]) Hypertension 07/29/2017 DX:Hypertension Asthma 03/19/2016 DX:Asthma; COMME NT: X 1 mo - then [facility] 03/12/16 admission for pneumonia - seen by Dr. Betancur (pul), advised f/u upon d/c. Endometriosis 07/29/2017 DX:Endometriosis Kidney stone 07/29/2017 DX:Kidney stone Morbid obesity with BMI of 45.0-49.9, adult (CMS/HCC V24, [facility] V28) 07/29/2017 DX:Morbid obesity with BMI o f 45.0-49.9, adult ([facility]) Morbid obesity with BMI of 50.0-59.9, adult (CMS/HCC V24, CMS/HCC V28) 07/29/2017 DX:Morbid obesity with BMI o f 50.0-59.9, adult ([facility]) History of pulmonary embolism 03/20/2016 DX :History [...] EDT Office Visit Obstetrics & Gynecology - [facility] [address] [place] [address] Alison Aponte CNM [address] [place] [address] Health Maintenance Due Date Last [...] is recommended in 1 year. Mammo Location: [facility], [address] [place] [address], [address], . -------- FINAL REPORT -------- Dictated By: Cindi Cabrera Dictated Date: 10/07/2024 12:33 ET Assigned Physician: Cindi Cabrera Reviewed and Electronically Signed By: Cindi Cabrera Signed Date: 10/07/2024 12:37 ET Workstation ID: [id number] Transcribed By: Self Edit Transcribed Date: 10/07/2024 [...] is recommended in 1 year. Mammo Location: [facility], [address] [place] [address], [address], . -------- FINAL REPORT -------- Dictated By: Cindi Cabrera Dictated Date: 10/07/2024 12:33 ET Assigned Physician: Cindi Cabrera Reviewed and Electronically Signed By: Cindi Cabrera Signed Date: 10/07/2024 12:37 ET Workstation ID: [id number] Transcribed By: Self Edit Transcribed Date: 10/07/2024 12:33 ET Marjan Joy MD IMG BI PROCEDURES Final Result from Last 3 Months or Most Recently Relevant to Health Maintenance Insurance [facility] Care Teams Scrummaster Relationship Specialty Start Date End Date Jeremie Pro MD [address] [place] [id number] PCP - General 08/02/23
--- OUTSIDE RECORDS SUMMARY | 2025-02-03 16:28 | XMS_ITS | Clinical Summary ---
Author Organization [facility] Address [address] [place] [address] Care Team Providers Care President [place] Name Role Phone Graham Pro MD Primary Care Provider [phone] Allergies No known active allergies Medications Medication [...] 03/19/2016 Overview: Overview: Chest CT 03/12/16 at [facility] - Exophytic nodule along left inferior [...] Group Subscriber ID Effective Dates Phone Address [facility] [id number] 2018-Seth 1 [facility] [address] [place] [phone] [facility] Care Teams President [place] Relationship Specialty Start Date End Date Graham Pro MD PCP - General Internal Medicine 07/07/19
== END 2025-02-03 16:47 | disposition home or self-care (01) ==
LOC: HO.HMCH 15:46
PROVIDERS: PCP Internal Medicine; Visit Provider Internal Medicine
DX: Z00.00 Encounter for general adult medical examination without abnormal findings (principal); I82.401 Acute embolism and thrombosis of unspecified deep veins of right lower extremity; I27.82 Chronic pulmonary embolism

== ENCOUNTER → 2025-02-03 15:45 | Outpatient (BNVA) | payer OTHER, SELFPAY | PROVIDERS: PCP Internal Medicine; Visit Provider Internal Medicine | DX: Z00.00 Encounter for general adult medical examination without abnormal findings (principal); I82.401 Acute embolism and thrombosis of unspecified deep veins of right lower extremity; I27.82 Chronic pulmonary embolism | CPT/HCPCS: 96127; 99396 ==

== ENCOUNTER 2025-03-19 10:49 | Outpatient (AMB) | payer OTHER, SELFPAY ==
[2025-03-19 10:58] VITALS: BP 156/78; PULSE 73; O2SAT 99; BMI 36.4
--- NOTE | 2025-03-19 10:58 | MHC.OFFVIS ---
Vital Signs 03/19/25 10:58 Height 4 ft 10 in Weight 174 lb 2.643 oz BMI 36.4 BP 156/78 H Blood Pressure Location Lt brachial Position Sitting Pulse 73 Pulse Source Pulse Oximeter Pulse Oximetry (%) 99 Oxygen Delivery Method Room Air Intake Visit Reasons: Asthma River Expedition Guide Required: No Accompanied by: Self / Same As Patient Allergies No Known Allergies Allergy (Verified 03/19/25 11:01) HPI Comments Details: The patient is a 49-year-old woman with a known history of moderate persistent asthma, history recurring pulmonary emboli currently on lifelong anticoagulation and also morbid obesity. Her respiratory status has been stable. 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 But, for now she has been doing well from the asthma standpoint. In regards of the history of pulmonary emboli she continues on the Eliquis 5 mg twice a day. She is wondering about 1 is safe to decrease the dose. I do feel she should be at least on a year's worth therapeutic Eliquis prior to deciding to cut down to half dose. She is currently dealing with an issue with her right knee. She has a torn ACL and is awaiting getting a brace for this injury. She continues to try to exercise and she lost approximately around 40 lb as she has continued to exercise and maintain a lifestyle change. In the meantime the patient does have a torn ACL. Because of her history of blood clots the patient cannot have surgery done locally. Once this duration improves with the she should go to [place] to have an evaluation. In the meantime for her anxiety that is ultimately affecting her ability to function and also at worsening respiratory symptoms the patient is requesting to talk to a mental health counselor. I will help her make arrangements for in order for her to do that. 09/28/2023 the patient is here for a pulmonary follow-up visit. The patient overall is doing about the same from the orthopedic issue. Still having significant right knee pain. She did have arthroscopic surgery, but, ultimately needs a repeat total knee replacement. She is following closely with orthopedic surgery. Because of her significant disability she has been able to go back to work. At this point the patient is significantly overweight she is already losing weight and she is part of a bariatric program. She is trying to undergo a gastric sleeve in the coming months. From a respiratory status the patient does have a history of asthma. She has been stable on the current therapy. She has not had any recent flare-ups. She does have Symbicort as a maintenance inhaler. The patient did undergo spirometry dating her spirometry numbers are perfectly normal which is reassuring. In addition to that she has had history of recurrent blood clots. The patient has been on long-term anticoagulation with Eliquis which she tolerated well. Prior to that she was on Coumadin but had issues with hair loss and she was not happy with that. The Eliquis has been working very well. Now going to surgery the patient will have to stop the Eliquis per the surgeon's protocol but we have to restart anticoagulation or antithrombotic therapy quickly after surgery to minimize the risk of recurrent clotting the patient indeed is high risk for recurrent blood clots. Clinically the patient is doing very good and she is able to consent for surgery and also anesthesia at this time. 04/15/2024 the patient is here for a pulmonary follow-up visit. The patient continues to do well. She did undergo her bariatric surgery at [facility] and went very well. She did stop the Eliquis as prescribed and she was able to restart the Eliquis without any issues. No minor major bleeding noted. She has been monitoring closely her protein intake and has been taking her supplemental vitamins. Overall she is doing very good with her recovery after her surgery. She will be seeing her orthopedic doctor sometime in April to assess her physical state in potentially schedule her surgery. The patient needs to undergo a total knee replacement on the right side. From a respiratory status she is doing well. She has been off the Symbicort which is reassuring. She has a rescue inhaler that she uses as needed. She continues on full-dose Eliquis without any issues. She knows that she will be on anticoagulation lifelong. 06/26/2024 the patient is here for a preoperative evaluation. The patient overall has been doing well from a respiratory status. The patient has not required a maintenance inhalers. She also has not required her rescue inhaler. She does continue on full-dose Eliquis for the history of recurrent blood clots. The patient now is scheduled to undergo a total knee replacement. The patient does have increased risk for perioperative pulmonary complications including thromboembolic disease, bronchospasms, atelectasis hypoxia and pneumonia. At this point the patient is medically optimize may be able to proceed with anesthesia and surgery. I do believe that she should not have any restrictions from anesthesia point of view. She can not tolerate general surgery. We did talk about her anticoagulation prior to surgery. Once the patient has surgery she should go back on Lovenox or straight on Eliquis if deemed safe by her surgeon. The patient follow-up in 3-4 months after his surgery to reassess. 09/30/2024 the patient is here for a pulmonary follow-up visit. Since she had her surgery she did require further manipulation of the total knee. After she ended up with swelling of her knee and was found to have a nonocclusive DVT. She already had been on Eliquis in very hearing to the therapy. She went to [facility] which she was then placed on Lovenox and she did a CTA demonstrating no evidence of any thromboembolic disease. But they found a thyroid nodule. She did undergo an ultrasound of thyroid. She also underwent blood work it was noted that her liver function studies were elevated. Apparently she has been taking a lot of new medicines including Tylenol and she was taking tramadol it had been taking some Percocet. In addition to that the enoxaparin sometimes can also elevate the LFTs. Therefore, she will come in next week to recheck her LFTs and make sure that they are stable if not better. If there still climbing, then need to consider the enoxaparin the culprit. She also did undergo the thyroid ultrasound. Waiting for the results. Currently on Lovenox. She is taking 80 mg subQ twice a day. Seems to be tolerating it but it does cause significant bruising and discomfort to the skin area. She will stay on the Lovenox hopefully for 2 months and then after that once the blood clots are clear she can go back on Eliquis with the hope that she can stay clear of any thrombotic disease. From an asthma standpoint the patient is doing well 03/19/2025 the patient is here for pulmonary follow-up visit. Overall she is doing well. She has switched back to Eliquis as per the recommendations of the charge lpn. The Lovenox was well tolerated but cause significant discomfort in bruising her abdomen. She also underwent a thyroid biopsy which was negative for any cancer but those still follow with regular ultrasounds. Overall the patient is doing well from a surgical standpoint. She is starting to move a little better although she does have some issues with the hamstring. She is going to continue with physical therapy at this time. The patient is planned to go to [place]. At this point she is doing okay on the Eliquis she will wear compression stockings and try to move a little bit. It is only a 3 hour trip so is not too long of a period of time. If she does develop any discomfort or pain or swelling of her leg she can always call and I can send her son Kai. But at this point is okay just on the Eliquis. The patient will continue with the current respiratory therapy although she is doing a lot better from a breathing standpoint status specially after losing more than 100 lb. Patient follow-up in a year's time if she has any issues prior to that she will call for an earlier assessment. [facility] Medical History Morbid obesity DVT (deep venous thrombosis) Osteoarthritis of right knee Knee pain, right Lower extremity edema Pulmonary emboli Asthma Surgical History H/O gastric sleeve History of right knee joint replacement History of cholecystectomy History of lateral meniscus repair of right knee History of hysterectomy Family History Mother No problems noted. Father Prostate cancer Social History Housing: House Patient Tobacco Use Status: Never used Tobacco e-Cigarette/Vaping Use: Never Used Second Hand Smoke Exposure: No service: No Current occupational status: disabled Cognitive needs: Yes Hearing needs: No Vision needs: Yes Review of Systems Const Denies chills, Denies fatigue, Denies fever(s), Denies weight gain and Reports weight loss ENT Denies dizziness, Denies lip swelling and Denies tongue swelling Card Denies chest pain, Denies leg edema, Denies lightheadedness, Denies palpitations, Reports dyspnea on exertion, Denies orthopnea and Denies other Resp Reports cough, Reports dyspnea on exertion and Denies wheezing GI Denies hematochezia and Denies change in stool character Musc Reports abnormal gait, Reports myalgias, Reports arthralgias, Reports limited range of motion, Denies muscle weakness, Denies numbness, Denies radiating pain into limb and Denies tingling Skin/Breast Denies rash Neuro Reports abnormal gait, Denies dizziness, Denies numbness and Denies tingling Psych Denies no additional complaints Endo Denies fatigue and Denies palpitations Minh/Lymph Denies easy bleeding and Denies lymphadenopathy Aller/Immun Denies lip swelling, Denies tongue swelling and Denies wheezing Physical Exam Vital Signs: Last Vital Signs Pulse 73 03/19/25 10:58 BP 156/78 H 03/19/25 10:58 Pulse Ox 99 03/19/25 10:58 Oxygen Delivery Method Room Air 03/19/25 10:58 BMI result Body Mass Index 36.4 Const General: cooperative, healthy appearing, no acute distress and alert HEENT Head: Yes normal to inspection Eyes General: appearance normal, both eyes and all related structures Neck Neck: Yes normal visual inspection Chest Chest palpation & inspection: normal inspection of the chest Resp Effort & Inspection: normal respiratory effort Auscultation: clear to auscultation bilaterally and no wheezes Cardio Rate: regular rate Rhythm: regular rhythm Heart sounds: S1 normal heart sound present and S2 normal heart sound present GI Palpation (GI): Soft to palpation Skin General skin exam: no rashes or lesions noted Extrem General: No clubbing, No cyanosis and Yes edema Assessment & Plan Assessment & Plan (1) Asthma: Code(s): J45.909 - Unspecified asthma, uncomplicated Category: Medical Qualifiers: Asthma complication type: uncomplicated Asthma persistence: persistent Asthma severity: moderate Qualified Code(s): J45.40 - Moderate persistent asthma, uncomplicated (2) Pulmonary emboli: Code(s): I26.99 - Other pulmonary embolism without acute cor pulmonale Category: Medical Qualifiers: Acute cor pulmonale presence: without acute cor pulmonale Chronicity: chronic Pulmonary embolism type: unspecified Qualified Code(s): I27.82 - Chronic pulmonary embolism (3) Thyroid nodule: Code(s): E04.1 - Nontoxic single thyroid nodule Category: Medical (4) DVT (deep venous thrombosis): Code(s): I82.409 - Acute embolism and thrombosis of unspecified deep veins of unspecified lower extremity Category: Medical Qualifiers: Affected thrombotic vein of extremity: unspecified vein of extremity Chronicity: acute DVT location: lower extremity Laterality: right Qualified Code(s): I82.401 - Acute embolism and thrombosis of unspecified deep veins of right lower extremity Plan Short-acting beta agonist as needed F/U with Hematology continue Zyrtec as needed Continue ELiquis. Consider Fondapiranox Follow-up in 8-12 months Coding Level of Care Code Est Pt Level 4 (44229) Diagnoses Moderate persistent asthma without complication J45.40 Asthma complication type: uncomplicated Asthma persistence: persistent Asthma severity: moderate Chronic pulmonary embolism without acute cor pulmonale, unspecified pulmonary embolism type I27.82 Acute cor pulmonale presence: without acute cor pulmonale Chronicity: chronic Pulmonary embolism type: unspecified Thyroid nodule E04.1 Acute deep vein thrombosis (DVT) of right lower extremity, unspecified vein I82.401 Affected thrombotic vein of extremity: unspecified vein of extremity Chronicity: acute DVT location: lower extremity Laterality: right Time Spent (min) 17
--- OUTSIDE RECORDS SUMMARY | 2025-03-19 12:44 | XMS_ITS | Clinical Summary ---
Author Organization [facility] Address [address] [place] [address] Care Team Providers Care Case Folder Name Role Phone Graham Pro MD Primary Care Provider [phone] Allergies No known active allergies Medications Medication [...] 03/19/2016 Overview: Overview: Chest CT 03/12/16 at [facility] - Exophytic nodule along left [...] Vaccine (1 of 2) 2023 Influenza Vaccine (Season Ended) 2025 RSV Ped < 20 months Aged Out No longe r eligible based on patient's age to complete this topic Insurance Payer Benefit Plan / Group Subscriber ID Effective Dates Phone Address [facility] [id number] 2018-Seth 1 [facility] [address] [place] [id number] [facility] Care Teams Case Folder Relationship Specialty Start Date End Date Graham Pro MD PCP - General Internal Medicine 07/07/19
== END 2025-03-19 11:25 | disposition home or self-care (01) ==
LOC: HO.HPS 10:50
PROVIDERS: PCP Internal Medicine; Visit Provider Hospitalist
DX: J45.40 Moderate persistent asthma, uncomplicated (principal); I27.82 Chronic pulmonary embolism; E04.1 Nontoxic single thyroid nodule; I82.401 Acute embolism and thrombosis of unspecified deep veins of right lower extremity
CPT/HCPCS: 99214

== ENCOUNTER → 2025-03-19 10:49 | Outpatient (BNVA) | payer OTHER, SELFPAY | PROVIDERS: PCP Internal Medicine; Visit Provider Hospitalist | DX: J45.40 Moderate persistent asthma, uncomplicated (principal); E04.1 Nontoxic single thyroid nodule; I27.82 Chronic pulmonary embolism; I82.401 Acute embolism and thrombosis of unspecified deep veins of right lower extremity | CPT/HCPCS: 99212 ==

== ENCOUNTER 2025-06-09 15:27 | Outpatient (AMB) | payer OTHER, SELFPAY ==
[2025-06-09 15:48] VITALS: BP 180/98; PULSE 73; RESP 18; TEMP 36.4; O2SAT 98; BMI 36.8
--- NOTE | 2025-06-09 15:48 | A.OFFPC_ITS ---
Vital Signs 06/09/25 15:48 Height 4 ft 10 in Weight 176 lb BMI 36.8 BP 180/98 H Blood Pressure Location Lt brachial Position Sitting Respiration 18 Pulse 73 Pulse Source Pulse Oximeter Temp 97.5 F Temp Source Temporal Artery Scan Pulse Oximetry (%) 98 Oxygen Delivery Method Room Air Intake Visit Reasons: 4 month Tinner Helper Required: No Accompanied by: Self / Same As Patient Allergies No Known Allergies Allergy (Verified 06/09/25 16:04) Medication List - Last Reconciled 06/09/25 by Marjan Joy MD albuterol sulfate 2.5 mg (3 mL) inhalation Q4-6H PRN albuterol sulfate 90 mcg/actuation 2 puffs inhalation QID PRN 30 days apixaban (Eliquis) 5 mg PO BID thom.stocking,knee,reg,smal 15-20 cm nebulizers As directed Tobacco use date assessed: 06/09/25 Dental Screening Dental Screen Date: 06/09/25 Did you have a dental visit in the last 12 months?: Yes Did you have a dental problem in the last 6 months where you did not have access to dental care?: No Was dental information given to patient?: Patient has dentist HPI HPI Comments History of Present Illness Details This is a 49-year-old female with right knee osteoarthritis that comes today for follow-up on her conditions. Blood pressure elevated and will be recheck in 3 weeks by nurse navigator. Denies any chest pain or shortness on breath. Walks with a cane for gait stability and complains of bilateral knee pain more prominent in the right. Will have surgery soon. Denies any chest pain or shortness on breath. [facility] Medical History Morbid obesity DVT (deep venous thrombosis) Osteoarthritis of right knee Knee pain, right Lower extremity edema Pulmonary emboli Asthma Surgical History H/O gastric sleeve History of right knee joint replacement History of cholecystectomy History of lateral meniscus repair of right knee History of hysterectomy Family History Mother No problems noted. Father Prostate cancer Social History Housing: House Patient Tobacco Use Status: Never used Tobacco e-Cigarette/Vaping Use: Never Used Second Hand Smoke Exposure: No service: No Current occupational status: disabled Cognitive needs: Yes Hearing needs: No Vision needs: Yes Questionnaire Thrive Questionnaire Date Thrive assessed: 01/27/25 I am a: Patient What is your living situation today?: I have a steady place to live Within the past 12 months, did the food you bought not last and you didn't have the money to get more?: Never true Within the past 12 months, did you worry whether your food would run out before you got money to buy more?: Never true Do you have trouble paying for medicines?: No Do you have trouble getting transportation to medical appointments?: No Do you have trouble paying your heating and electricity bill?: I choose not to answer this question Do you have trouble taking care of your child, family member or friend?: No Do you have trouble with day-to-day activities such as bathing, preparing meals, shopping, managing finances, etc.?: I choose not to answer this question Are you currently unemployed and looking for a job?: No Are you interested in more education?: No Please select the resources that you would like help with: None Currently or been in a relationship where the following occur: No concerns reported THRIVE Score: 0 BISI-7 AMB Questionnaire BISI-7 Date BISI - 7 assessed: 12/11/24 Source: Developed by Drs. Ron Michel, Kimberly Arcos, Pedro Sigala and colleagues, with an educational chiquis from [employer]. Review of Systems Const All systems reviewed & are unremarkable except as noted in HPI and below Card Denies chest pain at rest, Denies chest pain with activity, Denies edema, Denies irregular heart rhythm, Denies claudication, Denies dyspnea, Denies dyspnea on exertion, Denies orthopnea, Denies paroxysmal nocturnal dyspnea and Denies slow heart rate Resp Denies cough, Denies dyspnea and Denies dyspnea on exertion GI Denies abdominal pain, Denies change in bowel habits, Denies excessive flatus, Denies nausea and Denies vomiting Denies urinary incontinence, Denies urinary hesitancy and Denies urinary urgency Neuro Denies lack of coordination Physical exam (Primary Care) Vital Signs: Last Vital Signs Temp 97.5 F 06/09/25 15:48 Pulse 73 06/09/25 15:48 Resp 18 06/09/25 15:48 BP 180/98 H 06/09/25 15:48 Pulse Ox 98 06/09/25 15:48 Oxygen Delivery Method Room Air 06/09/25 15:48 BMI result Body Mass Index 36.8 Tobacco/Smoking Status: Tobacco use Status Tobacco use date assessed 06/09/25 06/09/25 15:55 Patient Tobacco Use Status Never used Tobacco 06/09/25 15:55 e-Cigarette/Vaping Use Never Used 06/09/25 15:55 Thrive Assessment: Date of Thrive Assessment Date Thrive assessed 01/27/25 06/09/25 15:55 Currently or been in a relationship where the following occur: No concerns reported Resp Effort & Inspection: normal respiratory effort Auscultation: clear to auscultation bilaterally Cardio Jugular venous distension: no JVD Rate: regular rate Rhythm: regular rhythm Heart sounds: S1 normal heart sound present and S2 normal heart sound present Extrem General: Yes full ROM Immunizations Boostrix Tdap 2.5 Lf unit-8 mcg-5 Lf/0.5 mL intramuscular syringe Performing Provider: Marjan Joy MD [facility] Administered by: Marianna Lim LPN on 06/09/25 16:31 Dose Route Admin Location Dispensed Lot Number Expiration Date UTC Reel Assembler 0.5 mL IM Left Deltoid 0.5 mL [id number] 08/13/27 29105-915-82 [employer] Total Dispensed Waste 0.5 mL 0 % VIS Given Date VIS Provided VIS Publication Date 06/09/25 Single Vaccine 21 Eligibility Eligibility Date Funding Source Not [facility] Eligible 06/09/25 Private Coding Level of Care Code Est Pt Level 3 (57366) Complex EM visit Add On G2211 Diagnoses Osteoarthritis of right knee M17.11 Time Spent (min) 18 Assessment & Plan Assessment & Plan (1) Osteoarthritis of right knee: Code(s): M17.11 - Unilateral primary osteoarthritis, right knee Category: Medical Plan Recheck blood pressure with nurse navigator in 3 weeks. Follow-up with ortho for your right knee. Orders: Orders TDaP Immunization Today Z23 - Encounter for immunization
--- OUTSIDE RECORDS SUMMARY | 2025-06-09 18:48 | XMS_ITS | Encounter Summary ---
Author Organization [facility] Address [address] [place] [id number] Phone Care Team Providers Care Roll Bucker Name Role Phone Graham Pro MD Primary Care Provider [phone] Encounter Details Date Type Department Care Team (Late st Contact Info) Description 05/26/2021 Telephone [facility] Pain Management [address] [place] [address] [address] [place] [address] [email or web address] Social History Tobacco Use Types Packs/Day Years Used Date Smoking Tobacco: Never Smokeless Tobacco: Never Comments Unknown Sex and Gender Information Value Date Recorded Sex Assigned at Female 02/11/2020 11:15 AM EDT Legal Sex Female 11:10 AM EDT Gender Identity Female 02/11/2020 11:15 AM EDT Sexual Orientation Straight 02/11/2020 11 :15 AM EDT documented as of this encounter Plan of Treatment Not on file documented as of this encounter Visit Diagnoses Not on filedocumented in this encounter Care Teams Roll Bucker Relationship Specialty Start Date End Date Graham Pro MD [address] [place] [phone] PCP - General Internal Medicine 01/05/21 documented as of this encounter Additional Source Comments The information contained in this document represents components of the legal health record. It is not the complete legal health record.[facility]
--- OUTSIDE RECORDS SUMMARY | 2025-06-09 18:48 | XMS_ITS ---
Author Name [facility] Organization Unknown Care Team Organization Name Specialty Phone Email Start Date End Da lon [facility] Primary Care 10/02/2022 05/12/2024
--- OUTSIDE RECORDS SUMMARY | 2025-06-09 18:48 | XMS_ITS | Encounter Summary ---
Author Organization [facility] Address [address] [place] [phone] Phone Care Team Providers Care Aerial Hurricane Hunter Name Role Phone Graham Pro MD Primary Care Provider Encounter Details Date Type Department Care Team (Late st Contact Info) Description 04/11/2021 Procedure Pass [facility] MR Imaging, [place] [address] [place] [address] Social History Tobacco Use Types Packs/Day Years [...] on filedocumented in this encounter Care Teams Aerial Hurricane Hunter Relationship Specialty Start Date End Date Graham Pro MD [address] [place] [phone] PCP - General Internal Medicine 01/05/21 documented as of this encounter Additional Source Comments The information contained in this document represents components of the legal health record. It is not the complete legal health record.[facility]
--- OUTSIDE RECORDS SUMMARY | 2025-06-09 18:48 | XMS_ITS | Clinical Summary ---
Author Organization [address] Address [address] [place] [phone] Phone Care Team Providers Care Rodding Machine Tender Name Role Phone Jeremie Pro MD Primary Care Provider [phone] Allergies No known active allergies Medications albuterol HFA (PROAIR HFA ; PROVENTIL HFA ; VENTOLIN HFA) 90 mcg/actuation inhaler INHALE 2 PUFFS BY MOUTH FOUR TIMES DAILY NEEDED FOR SHORTNESS OF BREATH OR WHEEZING 1 Active Eliquis 2.5 mg tablet TAKE 1 TABLET BY MOUTH TWO TIMES A DAY FOR 7 DAYS AFTER SURGERY, THEN RESUME HOME DOSE OF 5MG. Active Eliquis 5 mg tablet Take 1 tablet (5 mg total) by mouth. 9 Active enoxaparin (LOVENOX) 80 mg/0.8 mL syringe INJECT 0.8ML SUBCUTANEOUSLY EVERY 12 HOURS DIRECTED Active HYDROmorphone (DILAUDID) 2 mg tablet Active pantoprazole (PROTONIX) 40 mg EC tablet Take 1 tablet (40 mg total) by mouth 1 (one) time each day. Active tiZANidine (ZANAFLEX) 2 mg tablet Take 1 tablet (2 mg total) by mouth. Active traMADoL (ULTRAM) 50 mg tablet TAKE 1 TABLET BY MOUTH EVERY 4 TO 6 HOURS FOR 7 DAYS. TAKE WITH A MEAL 4 Active Active Problems Problem Noted Date Diagnosed Date Binge eating disorder 02/23/2025 Class 2 obesity 02/23/2025 Pulmonary embolism (CMS/HCC V24, CMS/HCC V28) Swelling of both lower extremities 09/16/2024 Arthralgia of right knee 09/10/2024 Ankylosis of right knee joint 08/20/2024 Osteoarthritis of left knee 02/01/2024 Osteoarthritis of right knee 02/01/2024 Abnormal uterine bleeding 06/06/2018 Endometriosis 07/29/2017 Hypertension 07/29/2017 Kidney stone 07/29/2017 Obesity, Class III, BMI 40-49.9 (morbid obesity) 07/29/2017 Asthma 03/19/2016 Thyroid nodule 03/19/2016 Overview (02/23/2025): Chest CT 03/12/16 at [facility] - Exophytic nodule along left inferior border of thyroid gland, rec thyroid US Immunizations Name Administration Dates Next Due Influenza Quadravalent, MDCK , 0.5ml, preservative free (Flucelvax) 6mo and older 08/24/2022 Influenza Quadrivalent, 0.5m l, preservative free (Fluarix; FluLaval; Fluzone) ages 6mo and older (Afluria) 3yo and older 06/25/2023,07/09/2021 Influenza trivalent, MDCK, 0 .5mL, preservative free (Flucelvax) 6mo and older 06/06/2024 Pneumococcal conjugate 20 va lent (Prevnar 20, PCV 20) 2mo and older 09/28/2023 Surgical History Surgery Date Site/Laterality Comments OTHER SURGICAL HISTORY PROCEDURE: DE NEPHROLITHOTOMY SECONDARY SURG OPERJ CALCULUS TUBAL LIGATION 1993 PROCEDURE: HISTORICAL TUBAL LIGATION CHOLECYSTECTOMY 1999 PROCEDURE: DE CHOLECYSTECTOMY ROBOTIC ASSISTED HYSTERECTOMY 07/19/2018 PROCEDURE: HISTORICAL ROBOTIC HYSTERECTOMY WITH OR WITHOUT BSO; COMMENT: da Autumn total hysterectomy with bilateral salpingectomy performed by Dr. Sofia Medical History Medical History Date Comments Dysmenorrhea DX:Dysmenorrhea Pneumonia 09/2012 DX:Pneumonia Pulmonary embolism (CMS/HCC V24, CMS/HCC V28) 03/20/2016, 10/01/2018 DX:Pulmonary embolism ([facility]) Hypertension 07/29/2017 DX:Hypertension Asthma 03/19/2016 DX:Asthma; COMME NT: X 1 mo - then [facility] 03/12/16 admission for pneumonia - seen by Dr. Betancur (pulm), advised f/u upon d/c. Endometriosis 07/29/2017 DX:Endometriosis Kidney stone 07/29/2017 DX:Kidney stone Morbid obesity with BMI of 45.0-49.9, adult ([facility]/HCC V24, [facility] V28) 07/29/2017 DX:Morbid obesity with BMI o f 45.0-49.9, adult (HCC) Morbid obesity with BMI of 50.0-59.9, adult (CMS/HCC V24, [facility] V28) 07/29/2017 DX:Morbid obesity with BMI o f 50.0-59.9, adult (HCC) History of pulmonary embolism 03/20/2016 DX :History of pulmonary embolism Thyroid nodule 03/19/2016 DX:Thyroid nodul e; COMMENT: Chest CT 03/12/16 at [facility] - Exophytic nodule along left inferior border of thyroid gland, rec thyroid US Asthma 03/19/2016 Hypertension 07/29/2017 Family History Medical History Relation Name Comments [...] Value Date Recorded Sex Assigned at Female 02/16/2025 9:13 PM EDT Legal Sex Female 12:43 PM EST Gender Identity Female 02/16/2025 9:13 PM EDT Sexual Orientation Straight 02/16/2025 9: 13 PM EDT Obstetrics History Para Term AB IAB SAB Ectopic Multiple Livin g Live Births 2 2 2 2 2 Date Outcome GA Total Labor Labor//3rd Weight Sex Type Anes PTL Chelsea A1 A5 Name Clin 02/28 Term 40w 0d M Vag-S pont Living López 08/10 Term 40w 0d M Vag-S pont Living Baltazar Hannony Last Filed Vital Signs Vital Sign Reading Time Taken Comments Blood Pressure 132/80 02/23/2025 8:47 AM EDT Pulse 78 02/23/2025 8:47 AM EDT Temperature - - Respiratory Rate - - Oxygen Saturation - - Inhaled Oxygen Concentration - - Weight 79.1 kg (174 lb 4.8 oz) 02/23/2025 8:47 A M EDT Height 147.3 cm (4' 10 ) 02/23/2025 8:47 AM EDT Body Mass Index 36.43 02/23/2025 8:47 AM EDT Plan of Treatment Health Maintenance Due Date Last Done Comments DTaP,Tdap,and Td Vaccines (1 - Tdap) 1992 Hepatitis B Vaccines (1 of 3 - 19+ 3-dose series) 1992 Cervical Cancer Screening: HPV 1994 Cholesterol Screening (Lipid Panel) 09/02/2022 Colorectal Cancer Screening: Colonoscopy 09/02/2022 HIV Screening 09/02/2022 Hepatitis C Screening 09/02/2022 Hypertension/CHF/CAD Annual BMP Blood Test 09/02/2022 Social Influencers of Health Screening 09/02/2022 Zoster Vaccines (1 of 2) 2023 Influenza Vaccine (#1) 2025 , 06/25/2023, 08/24/2022, Additional history exists Breast Cancer Screening 10/07/2026 10/07/19 25, 09/27/2023, 09/25/2023, Additional history exists Pneumococcal Vaccine: 50+ Years Completed 09/28/2023 COVID-19 Vaccine Completed 06/06/2024, , 07/27/2022, Additional history exists Depression Screening Completed 02/16/2025 HIB Vaccines Aged Out No longer eligi [...] is recommended in 1 year. Mammo Location: [facility], [address] [place] [address], [id number], . -------- FINAL REPORT -------- Dictated By: Cindi Cabrera Dictated Date: 10/07/2024 12:33 ET Assigned Physician: Cindi Cabrera Reviewed and Electronically Signed By: Cindi Cabrera Signed Date: 10/07/2024 12:37 ET Workstation ID: [id number] Transcribed By: Self Edit Transcribed Date: 10/07/2024 12:33 ET Narrative 10/07/2024 12:37 PM EST CLINICAL: 49 years old, Female, routine annual exam. COMPARISON: Mammograms dating back to 08/26/2020 with most recent of 09/25/2023. TECHNIQUE: Bilateral MLO and CC views were obtained digitally with 3-D mammogram (digital breast tomosynthesis). Computer-aided detection was utilized in evaluation of this exam (CAD). FINDINGS: There is no evidence of suspicious mass or architectural distortion. No worrisome calcifications are evident. There has been no significant change from prior exam(s). BREAST DENSITY: B - [...] is recommended in 1 year. Mammo Location: [facility], [address] [place] [address], [phone], . -------- FINAL REPORT -------- Dictated By: Cindi Cabrera Dictated Date: 10/07/2024 12:33 ET Assigned Physician: Cindi Cabrera Reviewed and Electronically Signed By: Cindi Cabrera Signed Date: 10/07/2024 12:37 ET Workstation ID: [id number] Transcribed By: Self Edit Transcribed Date: 10/07/2024 12:33 ET Marjan Joy MD IMG BI PROCEDURES Final Result from Last 3 Months or Most Recently Relevant to Health Maintenance Insurance [facility] Care Teams Rodding Machine Tender Relationship Specialty Start Date End Date Jeremie Pro MD [address] [place] [address] [address] [place] [phone] PCP - General 08/02/23
--- OUTSIDE RECORDS SUMMARY | 2025-06-09 18:48 | XMS_ITS | Encounter Summary ---
Author Organization [facility] Address [address] [place] [phone] Phone Care Team Providers Care Fabricator Special Items Name Role Phone Graham Pro MD Primary Care Provider Encounter Details Date Type Department Care Team (Late st Contact Info) Description 04/11/2021 Ancillary Orders [facility] Department of Orthopaedics [address] [place] [address] Chelita Castaneda MD [email or web address] Chronic pain of both knees Social History Tobacco Use Types Packs/Day Years [...] on file documented as of this encounter Results * XR KNEE 3 VIEW (BILATERAL) (04/11/2021 1:33 PM EDT) Anatomical Region Laterality Modality Knee Bilateral, Knee Right, Knee Left Computed Radiography 04/11/2021 5:07 PM EDT Impressions 04/11/2021 5:48 PM EDT 1. Mild tricompartmental left knee osteoarthritis with mild medial tibiofemoral joint space narrowing. 2. Mild tricompartmental right knee osteoarthritis. ATTESTATION: Purvi Crenshaw, as teaching physician have reviewed the images, if any, for this patient's exam, and if necessary, have edited the report originally created by Brionna Orozco. Narrative 04/11/2021 5:48 PM EDT XR KNEE 3 VIEW (BILATERAL) COMPARISON: XR LOWER EXTREMITY OUTSIDE (NO INTERPRETATION) FINDINGS: Left Knee: No fracture. Normal alignment. Mild medial tibiofemoral joint space narrowing. Small tricompartmental marginal osteophytes. No effusion. Right Knee: No fracture. Normal alignment. Normal joint spaces. Small tricompartmental marginal osteophytes. No effusion. Procedure Note Purvi Emmanuel MD - 04/11/2021 XR KNEE 3 VIEW (BILATERAL) COMPARISON: XR LOWER EXTREMITY OUTSIDE (NO INTERPRETATION) FINDINGS: Left Knee: No fracture. Normal alignment. Mild medial tibiofemoral jointspace narrowing. Small tricompartmental marginal osteophytes. Noeffusion. Right Knee: No fracture. Normal alignment. Normal joint spaces. Smalltricompartmental marginal osteophytes. No effusion. IMPRESSION: 1. Mild tricompartmental left knee osteoarthritis with mild medialtibiofemoral joint space narrowing. 2. Mild tricompartmental right knee osteoarthritis. ATTESTATION: Purvi Crenshaw, as teaching physician have reviewed theimages, if any, for this patient's exam, and if necessary, have edited thereport originally created by Brionna Orozco. Chelita Castaneda MD IMG XR LOWER EXTREMITY Final Result documented in this encounter Visit Diagnoses Diagnosis Chronic pain of both knees Chronic pain of both knees documented in this encounter Care Teams Fabricator Special Items Relationship Specialty Start Date End Date Graham Pro MD [address] [place] [phone] PCP - General Internal Medicine 01/05/21 documented as of this encounter Additional Source Comments The information contained in this document represents components of the legal health record. It is not the complete legal health record.[facility]
--- OUTSIDE RECORDS SUMMARY | 2025-06-09 18:48 | XMS_ITS | Clinical Summary ---
Author Organization [facility] Address [address] [place] [phone] Phone Care Team Providers Care Breaker Operator Name Role Phone Graham Pro MD Primary Care Provider Allergies No known active allergies Medications apixaban (ELIQUIS ORAL) Take by mouth. Active acetaminophen (TYLENOL ORAL) Take by mouth. As needed for pain. Active albuterol 90 mcg/actuation inhaler INHALE 2 PUFFS EVERY 6 HOURS NEEDED FOR SHORTNESS OF BREATH OR WHEEZING Active Social History Tobacco Use Types Packs/Day Years Used Date Smoking Tobacco: Never Smokeless Tobacco: Never Education Answer Date Recorded Are you interested in more education? Not on zuleyka e 01/19/2023 Are you concerned about learning? Not on file 01/19/2023 No 01/19/2023 No 01/19/2023 Digital Access Answer Date Recorded No 02/17/2023 No 02/17/2023 No 02/17/2023 Reliable internet access at home? Not on file 02/17/2023 Device with a working camera? Not on file Comments Unknown Sex and Gender Information Value Date Recorded Sex Assigned at Female 02/11/2020 11:15 AM EDT Legal Sex Female 11:10 AM EDT Gender Identity Female 02/11/2020 11:15 AM EDT Sexual Orientation Straight 02/11/2020 11 :15 AM EDT Last Filed Vital Signs Vital Sign Reading Time Taken Comments Blood Pressure - - Pulse - - Temperature - - Respiratory Rate - - Oxygen Saturation - - Inhaled Oxygen Concentration - - Weight 112.5 kg (248 lb) 05/02/2021 10:56 AM EDT Height 152.4 cm (5') 05/02/2021 10:56 AM EDT Body Mass Index 48.43 05/02/2021 10:56 AM EDT Plan of Treatment Health Maintenance Due Date Last Done Comments Adult Td,Tdap Booster 1973 CREATININE LEVEL 1973 LIPID PANEL 1973 DEPRESSION SCREENING 1985 HEPATITIS C SCREENING 1991 HIV ONE-TIME SCREENING (18-6 5 YEARS) 1991 PAP SMEAR 1994 MAMMOGRAM 2013 COLOGUARD 2018 COLONOSCOPY 2018 COLORECTAL CANCER SCREENING 2018 FIT TEST 2018 FOBT 2018 SIGMOIDOSCOPY 2018 VIRTUAL COLONOSCOPY 2018 PNEUMOCOCCAL VACCINES (50+ years) (1 of 1 - PCV) 2023 ZOSTER VACCINES (1 of 2) 2023 INFLUENZA VACCINE (#1) 2025 COVID-19 VACCINE (3 - 2024-2 6 season) 2025 12/25/2020, 12/04/2020 SMOKING STATUS SCREENING (On ce After 26 Yrs) Completed 05/02/2021 HEPATITIS A VACCINES Aged Out No long er eligible based on patient's age to complete this topic HIB VACCINES Aged Out No longer eligi ble based on patient's age to complete this topic MENINGOCOCCAL VACCINES (ACWY) Aged Out No longer eligible based on patient's age to complete this topic MENINGOCOCCAL VACCINES (B) Aged Out N o longer eligible based on patient's age to complete this topic Medical Devices Not on file Insurance [facility] HMO POS HMO POS O POS HMO POS HMO POS Care Teams Breaker Operator Relationship Specialty Start Date End Date Graham Pro MD [address] [place] [id number] PCP - General Internal Medicine 01/05/21 Additional Source Comments The information contained in this document represents components of the legal health record. It is not the complete legal health record.[facility]
== END 2025-06-09 16:33 | disposition home or self-care (01) ==
LOC: HO.HMCH 15:28
PROVIDERS: PCP Internal Medicine; Visit Provider Internal Medicine
DX: Z23 Encounter for immunization (principal); M17.11 Unilateral primary osteoarthritis, right knee

== ENCOUNTER → 2025-06-09 15:27 | Outpatient (BNVA) | payer OTHER, SELFPAY | PROVIDERS: PCP Internal Medicine; Visit Provider Internal Medicine | DX: M17.11 Unilateral primary osteoarthritis, right knee (principal); M25.562 Pain in left knee; Z23 Encounter for immunization | CPT/HCPCS: 90471; 90715; 99212 ==